=== PATIENT | female | born 1990 | race Caucasian/White ===

== ENCOUNTER → 2017-10-04 17:45 | Observation (INO) ==
[~2017-10-04 17:45] MED LIST: BETAMETHASONE 30 MG/5 ML INJECTION IM ONE
== END | disposition home or self-care (01) ==
LOC: MC
PROVIDERS: ADMIT Obstetrics & Gynecology; ATTEND Obstetrics & Gynecology

== ENCOUNTER 2017-10-18 16:51 | Inpatient (IN) ==
[2017-10-18] MEDS ORDERED: CALCIUM CARBONATE Chewable 500mg TABLET PO PRN (19:29)
[2017-10-18] MEDS ORDERED: LR 1,000 ML IV PRN ×2 (19:29→20:27)
[2017-10-18] MEDS ORDERED: CARBOPROST 250 MCG/ML INJECTION IM PRN (19:29)
[2017-10-18] MEDS ORDERED: MAG-AL + SIM ORAL LIQUID 30ml PO PRN (19:29)
[2017-10-18] MEDS ORDERED: METHYLERGONOVINE 0.2 MG/ML INJECTION IM PRN (19:29)
[2017-10-18] MEDS ORDERED: SALINE FLUSH 10ml SYRINGE IV PRN (19:31)
[2017-10-18] MEDS ORDERED: ZOLPIDEM 5 MG TABLET PO PRN (19:31)
[2017-10-18 20:53] VITALS: BMI 38.0
[2017-10-18] MEDS ORDERED: D5LR 1,000 ML IV PRN (20:58)
[2017-10-18] MEDS: ACETAMINOPHEN 500 MG TABLET PO PRN (21:29)
[2017-10-18] MEDS ORDERED: Oxycodone *IR* 5 MG TABLET PO PRN (21:41)
[2017-10-19] MEDS: ACETAMINOPHEN 500 MG TABLET PO PRN (01:32)
[2017-10-19] MEDS ORDERED: OXYTOCIN DRIP 30 UNIT/500 ML ML IV PRN ×2 (05:00)
[2017-10-19] MEDS ORDERED: D5LR 1,000 ML IV PRN ×2 (05:00)
[2017-10-19] MEDS: LR 1,000 ML IV PRN ×2 (05:45→10:40)
--- NOTE | 2017-10-19 07:57 | Anesthesia Preoperative Report ---
Anesthesia Epidural/Spinal Rec - Date and Time Date: 10/19/17 Preoperative Diagnosis: Labor Procedure: Labor Epidural Plan: Epidural - Vital Signs Vital Signs: Temperature 98.5 F 10/18/17 19:36 Pulse Rate 121 H 10/18/17 19:36 Respiratory Rate 18 10/18/17 19:36 Blood Pressure 134/83 10/18/17 19:36 Pulse Oximetry 98 10/18/17 19:36 /Para: P:1 - Medictaions & Allergies Inpatient Medications: Current Medications Acetaminophen (Tylenol) 500 - 1,000 mg PO Q4H PRN PRN Reason: Pain Last Admin: 10/19/17 01:32 Dose: 1,000 mg Al Hydroxide/Mg Hydroxide (Maalox Plus) 30 ml PO Q3H PRN PRN Reason: Indigestion Calcium Carbonate (Tums) 500 - 1,000 mg PO Q2H PRN PRN Reason: Indigestion Carboprost Tromethamine (Hemabate) 250 mcg IM O PRN PRN Reason: .Downtime Dextrose/Lactated Ringer's (Dextrose 5%-Lactated Ringers) 1,000 mls @ 125 mls/ hr IV .Q8H PRN PRN Reason: Labor Oxytocin (Pitocin Drip) 30 unit in 500 mls @ 2 mls/hr IV .Q24H PRN; Protocol PRN Reason: Induction/Augmentation Lactated Ringer's (Lactated Ringers) 1,000 mls @ 999 mls/hr IV .Q1H1M PRN Methylergonovine Maleate (Methergine) 0.2 mg IM O PRN Misoprostol (Cytotec) 800 mcg [place] ONCE PRN Oxycodone HCl (Roxicodone *Ir*) 5 mg PO Q4H PRN PRN Reason: Pain Sodium Chloride (Iv Flush) 10 - 80 ml IV PRN PRN PRN Reason: Flushing Zolpidem Tartrate (Ambien) 5 mg PO O PRN PRN Reason: Insomnia Allergies/Adverse Reactions: Allergies Allergy/AdvReac Type Severity Reaction Status Date / Time codeine Allergy Severe Agitated Verified 10/18/17 21:55 Sulfa (Sulfonamide Allergy Mild RASH Verified 10/18/17 21:55 Antibiotics) - Home Medications Home Medications: Home Medications Medication Instructions Recorded Confirmed Type Colace 1 cap PO BID PRN 10/18/17 10/18/17 History Vitamin Tab 1 tab PO DAILY 10/18/17 10/18/17 History Ranitidine 1 tab PO UNK PRN 10/18/17 10/18/17 History Potassium Chloride [Potassium 10/19/17 History Chloride] - Medical History Respiratory: Reports: Asthma (not currently using inhaler) Cardiovascular: Reports: Other ( induced hypertension) Neuro/Musculoskeletal: Reports: Depression (medication in past. not presently) Other History: Reports: Now (35w5d) - Surgical History HEENT Surgeries: Reports: Oral Surgery (wisdom teeth 18 yrs old) Surgery/Treatment: REPORT: Other ("Urethral stretching" 16 or 17 years old) Reproductive Surgery/Treatment: Reports: Cervical Procedure (biobsy) Anesthesia Reactions: None Hx Family Anesthesia Reaction: No History of Motion Sickness: No - Social History Smoking Status: Never smoker Second Hand Exposure: No Substance Use Type: does not use Alcohol Intake Frequency: does not drink - Pertinent Findings Lab Data: CBC and BMP 10/18/17 19:51 10/18/17 19:49 BMP 10/18/17 19:49 Sodium 141 Potassium 3.9 Chloride 109 H Carbon Dioxide 19 L BUN 16.0 Creatinine 0.7 Glucose 129 H Calcium 10.8 H Liver Function 10/18/17 Range/Units 19:49 Total Bilirubin 0.20 (0.20-1.30) MG/DL AST 20 (14-36) U/L ALT 14 (1-35) U/L Alkaline Phosphatase 120 (38-126) U/L Albumin 3.7 (3.5-5.0) g/dL EKG Rhythm: Normal Sinus Rhythm - Physical Exam Respiratory Exam: lungs clear Cardiovascular Exam: regular rate and rhythm - Airway Assessment Mallampati Score: II TMD: 2 Fingerbreadths Neck Extension: fair Overall Assessment: no airway concerns - ASA ASA Score: 2 - Discussion Discussion: Discussed risks/options/alternatives of anesthesia and questions answered. Patient consents. Nursing pain assessment noted. Attestation Statement: Prior to the delivery of any anesthetic medication, I examined the patient, developed the plan, obtained the patient's consent and discussed the risk and benefits of the procedure with the patient/guardian.
--- NOTE | 2017-10-19 08:15 | OB/GYN Progress Note ---
- Pain Control Pain control: Tolerating well - Pelvic Exam Dilation (cm): 4 Effacement (%): 80 station: -3 Amniotic membrane status: Intact - Contractions Monitor mode: External Contraction pattern: Irregular Contraction intensity: Moderate - Status status: Category l - Assessment and Plan Pitocin rate (mU/min): 14 Assessment: induction ongoing Comments: AROM clear fluid tolerated by Mother and Fetus. Continue current management.
[2017-10-19] MEDS ORDERED: DiphenhydrAMINE 50 MG/ML INJECTION IVP PRN (10:07)
[2017-10-19] MEDS ORDERED: NALOXONE 0.4 MG/ML INJECTION IVP PRN (10:07)
[2017-10-19] MEDS ORDERED: ONDANSETRON 4 MG/2 ML INJECTION IVP PRN (10:07)
[2017-10-19] MEDS ORDERED: ROPIVACAINE 1% 10MG/ML INJ 200 MG, SUFentanil 50 MCG in NS 100 ML EPI PRN (10:07)
--- NOTE | 2017-10-19 10:33 | OB/GYN Progress Note ---
- Pain Control Pain control: Epidural - Pelvic Exam Dilation (cm): 4 Effacement (%): 90 station: -3 Amniotic membrane status: Ruptured - Contractions Monitor mode: External Contraction pattern: Regular Contraction intensity: Moderate - Status status: Category ll Comments: Late Decelerations Mod Briseyda - Assessment and Plan Assessment: induction ongoing Comments: IUPC placed, Pitocin turned off will give Fetus a chance to recover and then possible restart Pitocin. If continues will likely require PLTCS.
[2017-10-19] MEDS ORDERED: CITRIC ACID/SODIUM CITRATE 30ml PO ONE (11:34)
[2017-10-19] MEDS ORDERED: CEFAZOLIN PREMIX (MC ONLY) 2 GM/50 ML BAG IV ONE (11:34)
[2017-10-19] MEDS ORDERED: AZITHROMYCIN IV 500 MG in NS 250ml 250 ML IV ONE (11:34)
[2017-10-19] MEDS ORDERED: FAMOTIDINE PB 20 MG/50 ML BAG IV ONE (11:34)
--- NOTE | 2017-10-19 11:34 | OB/GYN Progress Note ---
- Pain Control Pain control: Epidural - Pelvic Exam Dilation (cm): 4 Effacement (%): 90 station: -3 Amniotic membrane status: Ruptured - Contractions Monitor mode: Internal Contraction pattern: Irregular Contraction intensity: Moderate - Status status: Category ll - Assessment and Plan Comments: FHT Cat @ has not resolved unable to restart Pitocin. Discussed Indication for PLTCS, Discussed R/B/A to procedure questions elicited and answered.
[2017-10-19] MEDS ORDERED: SALINE FLUSH 10ml SYRINGE ONE (11:39)
[2017-10-19] MEDS ORDERED: LIDOCAINE 2%/EPI 1:200,000 20ml SDV PF ONE (11:39)
[2017-10-19] MEDS: OXYTOCIN BOLUS BAG 30 UNIT/500 ML ML IV SCH ×2 (12:04→12:23)
[2017-10-19] MEDS ORDERED: MORPHINE SULFATE PF 5mg/10ml INJ (Duramorph) ONE (12:36)
[2017-10-19] MEDS ORDERED: SIMETHICONE 80 MG CHEWABLE TABLET PO PRN (12:48)
[2017-10-19] MEDS ORDERED: CALCIUM CARBONATE Chewable 500mg TABLET PO PRN (12:48)
[2017-10-19] MEDS ORDERED: ACETAMINOPHEN 500 MG TABLET PO PRN (12:48)
[2017-10-19] MEDS ORDERED: DiphenhydrAMINE 25 MG CAPSULE PO PRN (12:48)
[2017-10-19] MEDS ORDERED: Oxycodone/Acetaminophen 5/325 1 TAB PO PRN (12:48)
[2017-10-19] MEDS ORDERED: HYDROCORTISONE 2.5% CREAM 30gm RECTALLY PRN (12:48)
--- NOTE | 2017-10-19 12:53 | Operative Note ---
Operative Note - Date of Operation Date of Operation: 10/19/17 - General : 1 Para: 0 Expected Date of Delivery: 11/06/17 Estimated or Known Gestational Age (weeks): 37 Estimated or Known Gestational Age (days): 3 - Preoperative Diagnosis Nonreassuring FHT, Gestational Hypertension - Postoperative Diagnosis nonreassuring FHT, Gestational Hypertension - Procedure Primary - Surgeon Surgeon: Lloyd Bhatia DO - Fountain Dispenser OB Fountain Dispenser: Gorge Plata MD - Anesthesia Anesthesia Provider: Kenneth Milan CRNA - Complications Complications: None - Estimated Blood Loss Estimated Blood Loss:: 800 - Findings Findings: viable female - APGARS : 799 - Veblen Weight Veblen Weight (grams): 2928 - Veblen Name Veblen Name: Indra
[2017-10-19] MEDS ORDERED: OXYTOCIN DRIP 30 UNIT/500 ML ML IV SCH (13:00)
[2017-10-19] MEDS ORDERED: D5LR 1,000 ML IV SCH ×2 (13:00→19:00)
[2017-10-19] MEDS ORDERED: NALOXONE 2 MG/2 ML INJECTION PFS IVP PRN (14:36)
[2017-10-19] MEDS: SIMETHICONE 80 MG CHEWABLE TABLET PO SCH ×2 (14:37→21:26)
[2017-10-19] MEDS: IBUPROFEN 800 MG TABLET PO PRN (14:38)
--- NOTE | 2017-10-19 15:55 | Anesthesia Postoperative Note ---
- Date and Time Date: 10/19/17 Time: 15:55 - Status Patient Participated in Evaluation: Patient Participated in Person Vital Signs: Temperature 98.5 F 10/18/17 19:36 Pulse Rate 121 H 10/18/17 19:36 Respiratory Rate 18 10/18/17 19:36 Blood Pressure 134/83 10/18/17 19:36 Pulse Oximetry 98 10/19/17 11:08 Respiratory Function: Airway Patent Cardiovascular Function: Regular Pulse EKG: Sinus Rhythm Mental Status: Alert and Oriented Pain Intensity: 0 Hydration: Taking PO Fluids, Nausea Complications During Recover: None Apparent - Follow-Up Instructions Instructions: Per Surgeon
[2017-10-19] MEDS: ONDANSETRON ODT 4 MG TABLET PO PRN ×2 (17:07→21:28)
[2017-10-19] MEDS ORDERED: HYDROMORPHONE 2 MG/ML INJECTION IVP PRN (18:40)
[2017-10-20] MEDS: IBUPROFEN 800 MG TABLET PO PRN ×3 (00:20→19:06)
[2017-10-20] MEDS: SIMETHICONE 80 MG CHEWABLE TABLET PO SCH ×3 (02:15→20:27)
--- NOTE | 2017-10-20 08:05 | OB/GYN Progress Note ---
OB-PP Progress Note - General PPD1 POD:: POD1 Maternal Group B Strep: Negative Maternal blood type: B+ Maternal Rubella Status: Immune - Subjective Date: 10/20/17 Lochia: Minimal Pain: controlled Voiding: costa still in place Nausea or Vomiting Present: No - Objective Vital Signs: Last Vital Signs Temp 97.7 F 10/20/17 04:00 Pulse 100 10/20/17 04:00 Resp 18 10/20/17 04:00 BP 102/66 10/20/17 04:00 Pulse Ox 98 10/20/17 04:00 Urine Output: good General: alert and oriented Abdomen: fundus firm, non-tender Incision: dry, dressed Extremities: non-tender Edema: none Laboratory: Laboratory Results - last 24 hr 10/19/17 10/20/17 17:16 05:55 WBC 18.7 H D 12.6 H RBC 2.61 L 2.34 L Hgb 8.0 L D 7.0 L D Hct 24.2 L D 22.1 L MCV 92.7 94.4 MCH 30.7 29.9 MCHC 33.1 31.7 RDW Std Deviation 47.6 48.3 Plt Count 252 212 MPV 9.1 L 8.8 L Immature Gran % (Auto) Not performed Neut % (Auto) Not performed Lymph % (Auto) Not performed Gove % (Auto) Not performed Eos % (Auto) Not performed Baso % (Auto) Not performed Neut # (Auto) Not performed Lymph # (Auto) Not performed Gove # (Auto) Not performed Eos # (Auto) Not performed Baso # (Auto) Not performed Abs Immat Gran (auto) Not performed Neutrophils % (Manual) 92.0 H Band Neutrophils % 1.0 Lymphocytes % (Manual) 4.0 L Monocytes % (Manual) 3.0 Neutrophils # (Manual) 17.2 H Band Neutrophils # 0.2 Lymphocytes # (Manual) 0.7 L Monocytes # (Manual) 0.6 RBC Morph Comment Normal - Assessment Assessment: SP, Primary C/S, Anemia - Plan Plan: routine care, iron
--- NOTE | 2017-10-20 08:36 | Operative Note ---
DATE OF SERVICE 10/19/2017 PREOPERATIVE DIAGNOSES 1. 37 weeks and 3 days gestational age. 2. Nonreassuring heart tones. 3. Preeclampsia without severe features. POSTOPERATIVE DIAGNOSES 1. 37 weeks and 3 days gestational age. 2. Nonreassuring heart tones. 3. Preeclampsia without severe features. 4. Delivered. PROCEDURE Primary low transverse section via Pfannenstiel incision. SURGEON Dr. Lloyd Bhatia DO OPERATOR AUTOMATED PROCESS Dr. Gorge Plata MD CHILD NUTRITION MANAGER Kenneth Milan CRNA COMPLICATIONS None. ESTIMATED BLOOD LOSS 800 mL FINDINGS A viable female infant. Apgars were 7/9. Weight was 2928 g. Name was Indra. FINDINGS Normal-appearing uterus, tubes and ovaries. INDICATIONS FOR PROCEDURE This is a 27-year-old G1, P0 who presented to [facility] for induction of labor at 37 weeks gestational age secondary to preeclampsia without severe features. She underwent a Simon bulb for cervical ripening and then a Pitocin induction. She made it to approximately 4.5 cm and 90% effaced and then had recurrent late decelerations with a category II strip and did not allow us to restart Pitocin and continue with the induction. We discussed indications for a primary low transverse section with the patient at the time including risks, benefits and alternatives. The patient decided to proceed with surgical delivery. DESCRIPTION OF PROCEDURE The patient was taken to the operating room where epidural anesthesia was found to be adequate. She was then prepped and draped in the dorsal supine position with a leftward tilt. A Simon catheter was placed. At this time a Pfannenstiel incision was made in the skin and carried through the underlying layers to the fascia. The fascia was then incised in the midline and the fascial incision was extended laterally with the Kennedy scissors. Superior aspect of the fascial incision was grasped with the Carli clamps, elevated and then the rectus muscle dissected off with the Kennedy scissors. At this time attention was turned to the inferior aspect of the fascial incision which was elevated and the rectus muscles dissected off with the Kennedy scissors. The rectus muscles were in the midline bluntly. Then the peritoneum was entered sharply with the Metzenbaum scissors. The peritoneal incision was then extended superiorly and inferiorly with good visualization of the bladder. The bladder blade was inserted and the vesicouterine peritoneum was identified and entered sharply with the Metzenbaum scissors. This incision was then extended laterally and the bladder flap was created digitally. At this time a uterine incision was made in a transverse fashion. The uterine incision was extended laterally with cephalad-caudad traction. An attempt to deliver the infant's head was made and after approximately a minute and a half of not being able to deliver the 's head a vacuum was applied and brought to 50 mmHg on suction and the infant's head delivered with one pull. The suction was removed and the remainder of the infant was delivered. The cord was clamped and cut x 2 and the was handed to the him clerk that was waiting. At this time the placenta was removed manually. The uterus was exteriorized and cleared of all clot and debris and the uterine incision was repaired with 1-0 Monocryl in a running locked fashion. A second layer of the same suture was used in an imbricating fashion. Excellent hemostasis was noted and the uterus was returned to the abdomen. The peritoneal incision was then repaired with 3-0 Monocryl in a running fashion and the fascia was repaired with 0 Vicryl in a running fashion. Subcutaneous layer was closed with 2-0 plain gut and the skin was closed with 4-0 Monocryl and the Prevena wound vac was applied. The patient tolerated the procedure well. Sponge, lap and needle counts were correct x 2 and patient was taken to recovery room in stable condition. TRIPP
[2017-10-20] MEDS: DOCUSATE CALCIUM 240 MG CAPSULE PO SCH (14:51)
[2017-10-20] MEDS: IRON POLYSACCHARIDE COMPLEX 150 MG CAPSULE PO SCH (14:51)
[2017-10-21] MEDS: SIMETHICONE 80 MG CHEWABLE TABLET PO SCH ×2 (01:02→09:17)
[2017-10-21] MEDS: IBUPROFEN 800 MG TABLET PO PRN (02:03)
[2017-10-21] MEDS: DOCUSATE CALCIUM 240 MG CAPSULE PO SCH (09:17)
[2017-10-21] MEDS: IRON POLYSACCHARIDE COMPLEX 150 MG CAPSULE PO SCH (09:18)
[2017-10-21 09:35] VITALS: RESP 18; O2SAT 98
[2017-10-21 12:07] VITALS: BP 121/76; PULSE 107; TEMP 98.7
--- NOTE | 2017-10-21 12:19 | OB/GYN Progress Note ---
OB-PP Progress Note - General PPD2 POD:: POD2 Maternal Group B Strep: Negative Maternal blood type: B+ Maternal Rubella Status: Immune - Subjective Date: 10/21/17 Lochia: Minimal Pain: controlled Voiding: voiding Nausea or Vomiting Present: No - Objective Vital Signs: Last Vital Signs Temp 98.7 F 10/21/17 12:00 Pulse 107 H 10/21/17 12:00 Resp 18 10/21/17 12:00 BP 121/76 10/21/17 12:00 Pulse Ox 98 10/21/17 12:00 Urine Output: good General: alert and oriented Cardiovascular: regular rate,rhythm Respiratory: non-labored Abdomen: fundus firm Incision: normal, clean, dry, intact Extremities: non-tender Edema: none - Assessment Assessment: SP, Primary C/S - Plan Plan: routine care, discharge home
== END 2017-10-21 14:10 | disposition home or self-care (01) | DRG 766 ==
LOC: MC 18:54
PROVIDERS: ADMIT Obstetrics & Gynecology; ATTEND Obstetrics & Gynecology

== ENCOUNTER 2018-01-08 19:03 | Observation (INO) ==
--- OUTSIDE RECORDS SUMMARY | 2018-01-08 19:12 | External Medical Summary | Continuity of Care Document ---
:1990 Author Organization [facility] Address [address] [place], [place] [id number] Phone Care Team Providers Name Role Phone Saundra Shital Unavailable Unavailable Allergies, Adverse Reactions, Alerts Substance Reaction Severity Status Sulfa (Sulfonamide Antibiotics) Unknown Active codeine Unknown Active Medications Medication Instructions Dosage Effective Dates Status Comments (start - stop) escitalopram 10 mg take 1 tablet by 10 MG - Active tablet oral route every day Nexplanon 68 mg As Prescribed - Active subdermal implant sertraline 25 mg take 1 tablet by 25 MG - No Longer tablet oral route every Active day Problems Condition Effective Dates (start - stop) Clinical Status Puerperal psychosis Puerperal psychosis Encounter for surveillance of other contraceptives Follow-Up, Routine Iron deficiency anemia, unspecified Follow-Up, Routine Anemia, unspecified Anemia, unspecified Follow-Up, Routine - Obesity, unspecified - Obesity, unspecified - Irregular Menses Female infertility associated with anovulation Irregular Menses - Female infertility, unspecified Female infertility, unspecified Female infertility, unspecified - Suprvsn of preg w history of - infertility, second trimester Suprvsn of preg w history of - infertility, second trimester Velamentous insertion of umbilical - cord, unsp trimester Suprvsn of preg w history of - infertility, second trimester Suprvsn of preg w history of - infertility, second trimester Abnormal finding of blood chemistry, unspecified Asthma Active Depression Active Active Procedures Procedure Date Office/outpatient visit,daniela mullen Results Test Name Date and Time Measure Units Reference Range Abnormal Flag Comments Unknown Advance Directives Directive Yes / No Effective Date File Name Unknown Encounters Encounter Practice Location Reason(s) Diagnoses Date Provider Care Team Description For Visit Members Office/outpa Bhavani Mejia depression Puerperal Dec- Sobbing Referring tient In Womens (chief psychosis [place]. Provider: visit,est, Juliocesar ENG, complaint) 8 700 Awa mod PO Box Medical [address] [address], 152, Center [address] [employer] [place], Suite Center [id number], 120, Lopez 120, [place] Roberto Mejia, tel: [place], [place], [address], [id number]. [place]. tel: tel: [phone] Bhavani Mejia Puerperal Nov- Sobbing Referring In Womens psychosisEncount [place]. Provider: Juliocesar ENG, er for 8 700 Awa PO Box surveillance of Medical [place] T, 1521, other Center 700 [facility], stpartum Suite Center [id number], Follow-Up, 120, Lopez 120, [place] Routine Roberto Mejia, tel: [place], [place], [address], [id number]. [place]. tel: tel: [phone] Bhavani Mejia Iron deficiency Oct- Sobbing Referring In Womens anemia, [place]. Provider: Tyrese Freed 8 700 Awa PO Box artum Follow-Up, Medical [place] T, 1521, Routine Center 700 [employer] [place], Suite Center [id number], 120, [place] 120, [place] Roberto Mejia, tel: [place], [place], [address], [id number]. [place]. tel: tel: [phone] Bhavani Mejia Anemia, Dakota-0 Sobbing Referring In Womens unspecifiedAnemi [place]. Provider: luis Freed, 8 700 Awa PO Box unspecifiedPostp Medical [place] T, 1521, artum Follow-Up, Center [address] [place] [address], Suite Center [id number], 120, Lopez 120, [place] Roberto Mejia, tel: [place], [address], [id number]. [place]. tel: tel: [phone] Bhavani Mejia Obesity, Apr-2 Sobbing Referring In Womens unspecified 3- Lloyd. Provider: Juliocesar ENG, 8 700 [facility], 152, Center [address] [place] [address], Suite Center [id number], 120, Lopez 120, [place] Roberto Mejia, tel: [place], [address], [id number]. [place]. tel: tel: [phone] Bhavani Mejia Obesity, Mar-2 Sobbing Referring In Womens unspecified 6- Lloyd. Provider: Juliocesar ENG, 8 700 [facility], 152, [address], Suite Center [id number], 120, Lopez 120, [place] Roberto Mejia, tel: [place], [address], [id number]. [place]. tel: tel: [phone] Bhavani Mejia Suprvsn of preg Mar-0 Sobbing Referring In Womens w history of - Lloyd. Provider: Juliocesar ENG, infertility, 8 700 Awa [facility] second trimester [facility] Cutler T, 152, Center [address] [place] [address], Suite Center [id number], 120, Lopez 120, [place] Roberto Mejia, tel: [place], [address], [id number]. [place]. tel: tel: [phone] Bhavani Mejia Suprvsn of preg Feb-0 Sobbing Referring In Womens w history of - Lloyd. Provider: Juliocesar ENG, infertility, 8 700 [facility] second Medical Cutler T, 1522, trimesterVelamen Center [address] [place] [address], tous insertion [place], of umbilical Suite Center [id number], cord, unsp 120, Lopez 120, [place] trimester Roberto Mejia, tel: [place], [address], [id number]. [place]. tel: tel: [phone] Bhavani Mejia Suprvsn of preg Jun-0 Sobbing Referring In Womens Ultrasound w history of Lloyd. Provider: Health VELASQUEZ, infertility, 8 700 Awa PO Box second trimester Medical [place]ler T, 1522, Center 700 [facility], Suite Center [id number], 120, Lopez 120, [place] Roberto Mejia, tel: [place], [address], [id number]. [place]. tel: tel: [phone] Bhavani Mejia Suprvsn of preg May-0 Sobbing Referring In Womens w history of Lloyd. Provider: Juliocesar ENG, infertility, 8 700 Awa PO Box second trimester Medical [address]ler T, 1522, Center [address] [place] [address], Suite Center [id number], 120, Lopez 120, [place] Roberto Mejia, tel: [place], [address], [id number]. [place]. tel: tel: [phone] Bhavani Mejia Nov-0 Sobbing Referring In Womens - Lloyd. Provider: Juliocesar ENG, 7 700 Awa PO Box Medical [place] T, 1522, Center [address] [place] [address], Suite Center [id number], 120, Lopez 120, [place] Roberto Mejia, tel: [place], [address], [id number]. [place]. tel: tel: [phone] Bhavani Mejia Irregular Menses [place]-2 Cutler Referring In Womens - Awa. Provider: Juliocesar ENG, 7 700 Awa PO Box Medical Cut[place] T, 1522, Center [address] Dr Kalpesh, [facility] Medical [place], 120, Center [id number], Mejia, Lopez 120, [place] Roberto COLEMAN, tel:[phone] [place], , [place]. [id number]. tel: tel: [phone] Associates Roberto Irregular May-2 Cutler Referring In Womens MensesFemale 5-201 Awa. Provider: Health VELASQUEZ, infertility 7 700 Awa PO Box associated with Medical [place] T, 1522, anovulation Center [address], [facility] [place], 120, Center [id number], [facility] 120, Roberto COLEMAN, tel:+ [phone] [place], , [place]. [id number]. tel: tel: [phone] Associates Roberto Female May-2 Cutler Referring In Womens infertility, 2-201 Awa. Provider: Juliocesar ENG, unspecified 7 700 Awa PO Box Medical [place] T, 1522, Center [address], [facility] [place], 120, [place] [id number], [facility] 120, Roberto COLEMAN, tel:[phone] [place], , [place]. [id number]. tel: tel: [phone] Associates Roberto Abnormal finding May-0 Cutler In Womens of blood 8-201 Awa. Health VELASQUEZ, chemistry, 7 700 PO Box unspecified Medical 152, Center Dr Kalpesh, [facility] [place], 120, [id number], Mejia, JARED, tel: [phone] , [place]. tel: [phone] Associates Roberto Female May-0 Cutler Referring In Womens infertility, 2-201 Awa. Provider: Juliocesar ENG, unspecifiedFemal 7 700 Awa PO Box e infertility, Medical [place] T, 1522, unspecified Center [address], [facility] [place], 120, [place] [id number], [facility] 120, Roberto COLEMAN, tel:[phone] [place], , [place]. [id number]. tel: tel:[phone] Family History Family Member Diagnosis Age At Onset Maternal Grandfather Cardiovascular Disease Maternal Grandfather Diabetes Maternal Grandmother Diabetes Maternal Grandmother Hypertension Father Kidney Disease Maternal Grandfather Lung Disease Immunizations Vaccine Date Status Comments Tdap completed Source: New Immunization Record Influenza, injectable, completed Source: New Immunization Record quadrivalent, preservative free, 3 yrs or older Payers Payer name Insurance type Covered libertarian ID Authorization(s) [facility] JARED [id number] [facility] JARED [id number] [facility] JARED [id number] Social History Type Description Quantity Date Captured Alcohol Use Details No Caffeine Use Details Tobacco Use Status Never smoked tobacco Smoking Status Never smoker Vital Signs Date / Height Weight BMI Pulse Blood Temperature Respiratory Body Head BMI Time: Rate Pressure Rate Surface Circumference percentile Area 186.10 86 128/87 2018 lbs /min mm[Hg] 10:50 AM Chief Complaint And Reason For Visit Most recent encounter only, dated '01/04/2018 11:00'. depression (chief complaint). Description: Problem started gradually over the past 4 Months. Statessymptoms are mild. The problem is stable. Context: Delivery. Problem is aggravated by lack of sleep and stress. She is also experiencing anxiety, decreased libido, fatigue and insomnia. Patient denies diaphoresis, dizziness, dyspnea, feeling of impending doom, low self esteem, manic episodes, social phobia, suicidal ideation and weight loss. Increased Zoloft dose not helping desires to change medications. Has not been to counseling. Reports decreased sex drive. Reason For Referral Reason For Referral Unknown Plan Of Care Date Type Action Status Goal Lifestyle education regarding completed diet Goal Lifestyle education regarding completed diet Goal Lifestyle education regarding completed diet Goal Lifestyle education regarding completed diet Goal Lifestyle education regarding completed diet Future Order: Radiology Order OB Detailed Complete Ultrasound Ordered ([id number]) Date Type Problem Goal Intervention Status Start Date Unknown. History Of Present Illness Encounter Date Complaint History Of Present Illness depression Problem started gradually over the past 4 Months. States symptoms are mild. The problem is stable. Context: Delivery. Problem is aggravated by lack of sleep and stress. She is also experiencing anxiety, decreased libido, fatigue and insomnia. Patient denies diaphoresis, dizziness, dyspnea, feeling of impending doom, low self esteem, manic episodes, social phobia, suicidal ideation and weight loss. Increased Zoloft dose not helping desires to change medications. Has not been to counseling. Reports decreased sex drive. Functional Status Encounter Date Functional Assessment Cognitive Assessment Unknown Medications Administered Medication Instructions Dosage Effective Dates (start - stop) Status Comments Drug Treatment Unknown Instructions Date Instruction Additional Information Giving encouragement to exercise Related to Body mass index 32.0-32.9 Lifestyle education regarding diet Related to Body mass index 32.0-32.9 Giving encouragement to exercise Related to Body mass index 32.0-32.9 Lifestyle education regarding diet Related to Body mass index 32.0-32.9 Giving encouragement to exercise Related to Body mass index 32.0-32.9 Lifestyle education regarding diet Related to Body mass index 32.0-32.9 Lifestyle education regarding diet Related to Body mass index 36.0-36.9 Giving encouragement to exercise Related to Body mass index 36.0-36.9 toxoplasmosis precautions (cats / raw meat) sexual activity HIV and other routine tests risk factors identified by history anticipated course of care nutrition and weight gain counseling, special diet exercise indications for ultrasound influenza vaccine environmental / work hazards travel tobacco (ask, advise, assess, assist and arrange) alcohol illicit / recreational drugs use of any medications (including supplements, vitamins, herbs, OTC drugs) smoking counseling domestic violence seat belt use childbirth classes / hospital facilities hospital registration genetic testing new ob handbook risks Giving encouragement to exercise Related to Body mass index 34.0-34.9 Lifestyle education regarding diet Related to Body mass index 34.0-34.9
--- OUTSIDE RECORDS SUMMARY | 2018-01-08 19:12 | External Medical Summary | Continuity of Care Document ---
:1990 Author Organization [facility] Address [address] [place], [place] [address] Phone Care Team Providers Name Role Phone Saundra DO Shital Unavailable Unavailable Allergies, Adverse Reactions, Alerts Substance Reaction Severity Status Sulfa (Sulfonamide Antibiotics) Unknown Active codeine Unknown Active Medications Medication Instructions Dosage Effective Dates Status Comments (start - stop) sertraline 25 mg take 1 tablet by oral 25 MG - Active tablet route every day Nexplanon 68 mg As Prescribed - Active subdermal implant Problems Condition Effective Dates (start - stop) Clinical Status Puerperal psychosis Encounter for surveillance of other [...] Active Depression Active Active Procedures Procedure Date Insert n-biodgrad drug del implant Nexplanon- Etonogestrel Implant Visit No-Charge Results Test Name Date and Time Measure Units Reference Range Abnormal Flag Comments Unknown Advance Directives Directive Yes / No Effective Date File Name Unknown Encounters Encounter Practice Location Reason(s) Diagnoses Date Provider Care Team Description For Visit Members Bhavani Mejia Puerperal Sobbing Referring In Womens examination psychosisEncoun [place]. Provider: Juliocesar ENG, (chief ter for 8 700 Awa PO Box complaint) surveillance of Medical [address]ler T, 152, other Center 700 [facility], ostpartum Suite Center [id number], Follow-Up, 120, Lopez 120, [place] Routine Roberto Mejia, tel:+ [place], [place], [address], [id number]. [place]. tel: tel: [phone] Bhavani Mejia Iron deficiency Sobbing Referring In Womens anemia, [place]. Provider: Juliocesar ENG unspeczuleymaPost 8 700 Awa PO Box Medical [place] T, 152, Follow-Up, Center 700 [facility], Suite Center [id number], 120, Lopez 120, [place] Roberto Mejia, tel: [place], [place], [address], [id number]. [place]. tel: tel: [phone] Bhavani Mejia Anemia, [place]-0 Sobbing Referring In Womens unspecifiedAnem [place]. Provider: aureliano Freed, 8 700 Awa PO Box unspecifiedPost Medical [place] T, 152, Center 700 [place], Follow-Up, [facility], Routine Suite Center [id number], 120, Lopez 120, [place] Roberto Mejia, tel: [place], [place], [address], [id number]. [place]. tel: tel: [phone] Bhavani Mejia Obesity, Aug-2 Sobbing Referring In Womens unspecified 3 [place]. Provider: Juliocesar ENG, 8 700 Awa PO Box Medical [address] T, 152, Center 700 [facility], Suite Center [id number], 120, Lopez 120, [place] Roberto Mejia, tel: [place], [address], [id number]. [place]. tel: tel: [phone] Bhavani Mejia Obesity, Mar-2 Sobbing Referring In Womens unspecified Lloyd. Provider: Juliocesar CT, 8 700 [facility] T, 1522, Center 700 [facility], Suite Center , 120, Lopez 120, [place] Roberto Mejia, tel: [place], [address], [id number]. [place]. tel: tel: [phone] Bhavani Mejia Suprvsn of preg Mar-0 Sobbing Referring In Womens w history of Lloyd. Provider: Juliocesar ENG, infertility, 8 700 [facility] T, 1522, trimester Center [address] [place] [address], Suite Center [id number], 120, Lopez 120, [place] Roberto Mejia, tel: [place], [address], [id number]. [place]. tel: tel: [phone] Bhavani Mejia Suprvsn of preg Feb-0 Sobbing Referring In Womens w history of Lloyd. Provider: Juliocesar ENG, infertility, 8 700 [facility] T, 1522, trimesterVelame Center 700 [facility], of umbilical Suite Center [id number], cord, unsp 120, Lopez 120, [place] trimester Roberto Mejia, tel: [place], [address], [id number]. [place]. tel: tel: [phone] Bhavani Mejia Suprvsn of preg Feb-0 Sobbing Referring In Womens Ultrasound w history of Lloyd. Provider: Juliocesar ENG, infertility, 8 700 [facility] T, 1522, trimester Center 700 [facility], Suite Center [id number], 120, Lopez 120, [place] Roberto Mejia, tel: [place], [address], [id number]. [place]. tel: tel: [phone] Associates Roberto Suprvsn of preg [place]-0 Sobbing Referring In Womens w history of 4-201 Lloyd. Provider: Juliocesar ENG, infertility, 8 700 Awa PO Box second Medical Cutler T, 1522, trimester Center [address] [place] [address], Suite Center [id number], 120, Lopez 120, [place] Roberto Mejia, tel: [place], [address], [id number]. [place]. tel: tel: [phone] Associates Roberto Nov-0 Sobbing Referring In Womens 9-201 Lloyd. Provider: Juliocesar ENG, 7 700 Awa PO Box Medical [place] T, 1522, Center [address] [place] [address], Suite Center [id number], 120, Lopez 120, [place] Roberto Mejia, tel: [place], [address], [id number]. [place]. tel: tel: [phone] Associates Roberto Irregular [place]-2 Cutler Referring In Womens Menses 1-201 Awa. Provider: Juliocesar ENG, 7 700 Awa PO Box Medical [place] T, 1522, Center [address], [facility], 120, Center [id number], Roberto, [facility] 120, [place] Roberto COLEMAN, tel:[phone] [place], , [place]. [id number]. tel: tel: [phone] Bhavani Mejia Irregular May-2 Cutler Referring In Womens MensesFemale 5-201 Awa. Provider: Juliocesar ENG, infertility 7 700 Awa PO Box associated with Medical [place]ler T, 152, anovulation Center [facility] Dr Kalpesh, [facility], 120, Center [id number], Roberto, [facility] 120, [place] Roberto COLEMAN, tel:[phone] [place], , [place]. [id number]. tel: tel: [phone] Associates Roberto Female May-2 Cutler Referring In Womens infertility, 2-201 Awa. Provider: Juliocesar ENG, unspecified 7 700 Awa PO Box Medical [place] T, 1522, Center [address], [facility], 120, Center [id number], [facility] 120, Roberto COLEMAN, tel:+[phone] [place], , [place]. [id number]. tel: tel:[phone] Associates Roberto Abnormal May-0 Cutler In Womens finding of 8-201 Awa. Health VELASQUEZ, blood 7 700 PO Box chemistry, Medical 1522, unspecified Center Dr Kalpesh, [facility] [place], 120, [id number], [place], [facility], tel:[phone] , [place]. tel: [phone] Associates Roberto Female May-0 Cutler Referring In Womens infertility, 2-201 Awa. Provider: Juliocesar ENG, unspecifiedFema 7 700 Awa PO Box le infertility, Medical Cutler T, 1522, unspecified Center [address], [facility], 120, [place] [id number], [facility] 120, Roberto COLEMAN, tel:[phone] [place], , . [id number]. tel: tel:[phone] Family History Family Member Diagnosis Age At Onset Maternal Grandfather Cardiovascular Disease Maternal Grandfather Diabetes Maternal Grandmother Diabetes Maternal Grandmother Hypertension Father Kidney Disease Maternal Grandfather Lung Disease Immunizations Vaccine Date Status Comments Tdap completed Source: New Immunization Record Influenza, injectable, completed Source: New Immunization Record quadrivalent, preservative free, 3 yrs or older Payers Payer name Insurance type Covered democrat ID Authorization(s) [facility] [id number] [facility] [id number] [facility] [id number] Social History Type Description Quantity Date Captured Alcohol Use Details No Caffeine Use Details Tobacco Use Status Never smoked tobacco Smoking Status Never smoker Vital Signs Date / Height Weight BMI Pulse Blood Temperature Respiratory Body Head BMI Time: Rate Pressure Rate Surface Circumference percentile Area 187.90 73 110/73 97.60 F -2018 lbs /min mm[Hg] 11:11 AM Chief Complaint And Reason For Visit Most recent encounter only, dated '12/06/2017 11:00'. examination (chief complaint). Description: On 10/18/2017 she had a C/S (LT) of a 37 week3 day female (Indra) weighing 6# 7 oz. (2928g) at [facility] by Lloyd Bhatia DO. Apgars: 7/9. She had no delivery complications. Her was complicated by Pre-eclampsia duringpregnancy in third. Her last pap smear was WNL on 10/07/2015. Reason For Referral Reason For Referral Unknown Plan Of Care Date Type Action Status Goal Lifestyle education regarding completed diet Goal Lifestyle education regarding completed diet Goal Lifestyle education regarding completed diet Goal Lifestyle education regarding completed diet Appointment Christy Luna BOOKED Future Order: Radiology Order OB Detailed Complete Ultrasound Ordered ([id number]) Date Type Problem Goal Intervention Status Start Date Unknown. History Of Present Illness Encounter Date Complaint History Of Present Illness examination On 10/18/2017 she had a C/S (LT) of a 37 week 3 day female (Indra) weighing 6# 7 oz. (2928g) at [facility] by Lloyd Bhatia DO. Apgars: 7/9. She had no delivery complications. Her was complicated by Pre-eclampsia during in third. Her last pap smear was WNL on 10/07/2015. Functional Status Encounter Date Functional Assessment Cognitive [...]
--- OUTSIDE RECORDS SUMMARY | 2018-01-08 19:12 | External Medical Summary | Continuity of Care Document ---
:1990 Author Organization [facility] Address [address] [place], [place] [id number] Phone Care Team Providers Name Role Phone [...] Active Depression Active Active Procedures Procedure Date Unknown Results Test Name Date and Time Measure Units Reference Range Abnormal Flag Comments Unknown Advance Directives Directive Yes / No Effective Date File Name Unknown Encounters Encounter Practice Location Reason(s) Diagnoses Date Provider Care Team Description For Visit Members Bhavani Mejia Puerperal Brian-1 Sobbing Referring In Womens psychosisEncounte 6-201 [place]. Provider: Juliocesar ENG r for 8 700 Awa PO Box surveillance of Medical Cutler T, 1522, other Center 700 [facility], tpartum Suite Center [id number], Follow-Up, 120, Lopez 120, [place] Routine Roberto Mejia, tel:+ [place], [address], [id number]. [place]. tel: tel: [phone] Bhavani Mejia Brian-0 Sobbing In Womens 3-201 [place]. Juliocesar ENG, 8 700 PO Box Medical 1522, [place], [place], [address] [id number], 120, [place] Roberto, tel:+ [place], [address], [place]. tel: [phone] Bhavani Mejia Iron deficiency Dakota-1 Sobbing Referring In Womens anemia, 8 [place]. Provider: Nona Freedtpa 8 700 Awa PO Box rtum Follow-Up, Medical Cutler T, 1522, Routine Center [address] [place] [address], Suite Center [id number], 120, Lopez 120, [place] Roberto Meija, tel:+ [place], [address], [id number]. [place]. tel: tel: [phone] Bhavani Mejia Anemia, Dakota-0 Sobbing Referring In Womens unspecifiedAnemia 4-201 [place]. Provider: Juliocesar ENG, , 8 700 Aaw PO Box unspecifiedPostpa Medical [place] T, 1522, rtum Follow-Up, Center [address] [place] [address], Suite Center [id number], 120, Lopez 120, [place] Roberto Mejia, tel:+ [place], [address], [id number]. [place]. tel: tel: [phone] Bhavani Mejia Obesity, Apr-2 Sobbing Referring In Womens unspecified 3-201 [place]. Provider: Juliocesar ENG, 8 700 Awa PO Box Medical [place]ler T, 1522, Center 700 [facility], Suite Center [id number], 120, Lopez 120, [place] Roberto Mejia, tel:+ [place], [address], [id number]. [place]. tel: tel: [phone] Bhavani Mejia Obesity, Mar-2 Sobbing Referring In Womens unspecified 6-201 Lloyd. Provider: Juliocesar ENG, 8 700 Awa PO Nacho Medical [place] T, 152, Center 700 [facility], Suite Center [id number], 120, Lopez 120, [place] Roberto Mejia, tel:+ [place], [address], [id number]. [place]. tel: tel: [phone] Bhavani Mejia Suprvsn of preg w Mar-0 Sobbing Referring In Womens history of 1- Lloyd. Provider: Juliocesar ENG, infertility, 8 700 Awa PO Nacho second trimester Medical [place]ler T, 152, Center [address] [place] [address], Suite Center [id number], 120, Lopez 120, [place] Roberto Mejia, tel: [place], [address], [id number]. [place]. tel: tel: [phone] Bhavani Mejia Suprvsn of preg w Feb-0 Sobbing Referring In Womens history of 1-201 Lloyd. Provider: Juliocesar ENG, infertility, 8 700 Awa Nacho second Medical Cutler T, 152, trimesterVelament Center [address] [place] [address], ous insertion of [facility], umbilical cord, Suite Center [id number], unsp trimester 120, Lopez 120, [place] Roberto Mejia, [place]: [place], [address], [id number]. [place]. tel: tel: [phone] Bhavani Mejia Suprvsn of preg w Feb-0 Sobbing Referring In Womens Ultrasound history of 1-201 Lloyd. Provider: Juliocesar ENG, infertility, 8 700 Awa PO Nacho second trimester Medical Cutler T, 1522, Center [address] [place] [address], Suite Center [id number], 120, Lopez 120, [place] Roberto Mejia, tel: [place], [address], [id number]. [place]. tel: tel: [phone] Associates Roberto Suprvsn of preg w [place]-0 Sobbing Referring In Womens history of 4-201 Lloyd. Provider: Juliocesar ENG, infertility, 8 700 Awa PO Box second trimester Medical Cutler T, 152, Center [address] [place] [address], Suite Center [id number], 120, Lopez 120, [place] Roberto Mejia, [place]: [place], [address], [id number]. [place]. tel: tel: [phone] Bhavani Mejia Nov-0 Sobbing Referring In Womens 9-201 Lloyd. Provider: Juliocesar ENG, 7 700 Awa PO Box Medical Cutler T, 152, Center [address] [place] [address], Suite Center [id number], 120, Lopez 120, [place] Roberto Mejia, [place]: [place], [address], [id number]. [place]. tel: tel: [phone] Bhavani Mejia Irregular Menses Dakota-2 Cutler Referring In Womens 1-201 Awa. Provider: Juliocesar ENG, 7 700 Awa PO Box Medical Cut[place] T, 152, Center [facility] Dr Kalpesh, [facility], 120, Center [id number], Roberto, [facility] 120, [place] Roberto COLEMAN, tel:[phone] [place], , [place]. [id number]. tel: tel: [phone] Associates Roberto Irregular May-2 Cutler Referring In Womens MensesFemale 5-201 Awa. Provider: Juliocesar ENG, infertility 7 700 Awa PO Box associated with Medical Cutler T, 1522, anovulation Center [facility] Dr Kalpesh, [facility], 120, Center [id number], Roberto, Lopez 120, [place] Roberto COLEMAN, tel:[phone] [facility] , [place]. [id number]. tel: tel: [phone] Associates Roberto Female May-2 Cutler Referring In Womens infertility, 2-201 Awa. Provider: Juliocesar ENG, unspecified 7 700 Awa PO Box Medical [place] T, 1522, Center [address] Dr Kalpesh, [facility], 120, [place] [id number], [facility] 120, Roberto COLEMAN, tel: [phone] [place], , [place]. [id number]. tel: tel:[phone] Associates Roberto Abnormal finding May-0 Cutler In Womens of blood 8-201 Awa. Health VELASQUEZ, chemistry, 7 700 PO Box unspecified Medical 1522, Center Dr Kalpesh, [facility], 120, [id number], Mejia, [facility], tel: [phone] , . tel: [phone] Associates Roberto Female May-0 Cutler Referring In Womens infertility, 2-201 Awa. Provider: Juliocesar ENG, unspecifiedFemale 7 700 Awa PO Box infertility, Medical [place] T, 1522, unspecified Center [facility] Dr Kalpesh, [facility], 120, [place] [id number], [facility] 120, Roberto COLEMAN, tel:+ [phone] [place], , [place]. [id number]. tel: tel: [phone] Family History Family Member Diagnosis Age At Onset Maternal Grandfather Cardiovascular Disease Maternal Grandfather Diabetes Maternal Grandmother Diabetes Maternal Grandmother Hypertension Father Kidney Disease Maternal Grandfather Lung Disease Immunizations Vaccine Date Status Comments Tdap completed Source: New Immunization Record Influenza, injectable, completed Source: New Immunization Record quadrivalent, preservative free, 3 yrs or older Payers Payer name Insurance type Covered alliance party ID Authorization(s) [facility] [id number] [facility] [id number] [facility] [id number] Social History Type Description Quantity Date Captured Unknown Vital Signs Date / Height Weight BMI Pulse Blood Temperature Respiratory Body Head BMI Time: Rate Pressure Rate Surface Circumference percentile Area Unknown Chief Complaint And Reason For Visit Unknown Chief Complaint And Reason For Visit Reason For Referral Reason For Referral Unknown Plan Of Care Date Type Action Status Goal Lifestyle education regarding completed diet Goal Lifestyle education regarding completed diet Goal Lifestyle education regarding completed diet Goal Lifestyle education regarding completed diet Appointment Christy Luna BOOKED Future Order: Radiology Order OB Detailed Complete Ultrasound Ordered ([id number]) Date Type Problem Goal Intervention Status Start Date Unknown. History Of Present Illness Encounter Date Complaint History Of Present Illness This patient has no known history of present illness Functional Status Encounter Date Functional Assessment Cognitive [...]
--- OUTSIDE RECORDS SUMMARY | 2018-01-08 19:12 | External Medical Summary | Continuity of Care Document ---
:1990 Author Organization [facility] Address [address] [place], [place] [id number] Phone Care Team Providers Name Role Phone [...] Effective Dates (start - stop) Clinical Status Abnlt in heart rate and rhythm - comp labor and delivery Puerperal psychosis Encounter for surveillance of other [...] Active Depression Active Active Procedures Procedure Date Routine care and delivery Results Test Name Date and Time Measure Units Reference Range Abnormal Flag Comments Unknown Advance Directives Directive Yes / No Effective Date File Name Unknown Encounters Encounter Practice Location Reason(s) Diagnoses Date Provider Care Team Description For Visit Members Bhavani Mejia Puerperal Nov- Sobbing Referring In Womens psychosisEncounte 6 [place]. Provider: lazaro Freed for 8 700 Awa PO Box surveillance of Medical Cutler T, 152, other Center 700 [place], [facility], [facility], tpartum Suite Center [id number], Follow-Up, 120, Lopez 120, [place] Routine Roberto Mejia, tel: [place], [address], [id number]. [place]. tel: tel: [phone] Bhavani Mejia Iron deficiency Oct- Sobbing Referring In Womens anemia, Noble. Provider: Juliocesar ENG, unspecifiedPostpa 8 700 Awa PO Box rtum Follow-Up, [facility] Cutler T, 1521, Routine Center [address] [place] [address], [facility], Suite Center [id number], 120, Lopez 120, [place] Roberto Mejia, tel: [place], [address], [id number]. [place]. tel: tel: [phone] Bhavani Mejia Anemia, Dakota-0 Sobbing Referring In Womens unspecifiedAnemia Noble. Provider: Juliocesar ENG, , 8 700 Awa PO Box unspecifiedPostpa [facility] Cutler T, 1521, rtum Follow-Up, Center [address] [place] [address], [facility], Suite Center [id number], 120, Lopez 120, US Roberto Mejia, tel: [place], [address], [id number]. [place]. tel: tel: [phone] Bhavani Mejia Abnlt in September- Sobbing Referring In Womens heart rate and Noble. Provider: Juliocesar ENG, rhythm comp labor 8 700 Awa PO Box and delivery [facility] Cutler T, 152, Center [address] [place] [address], [facility], Suite Center [id number], 120, Lopez 120, [place] Roberto Mejia, [place]: [place], [address], [id number]. [place]. tel: tel: [phone] Bhavani Mejia Obesity, Apr-2 Sobbing Referring In Womens unspecified 3- Lloyd. Provider: Juliocesar ENG, 8 700 Awa PO Nacho [facility] Cutler T, 1522, Center [address] [place] [address], Suite Center [id number], 120, Lopez 120, [place] Roberto Mejia, [place]: [place], [address], [id number]. [place]. tel: tel: [phone] Bhavani Mejia Obesity, Mar-2 Sobbing Referring In Womens unspecified 6- Lloyd. Provider: Juliocesar ENG, 8 700 Awa PO Nacho [facility] Cutler T, 1522, Center [address] [place] [address], Suite Center [id number], 120, Lopez 120, US Roberto Mejia, tel: [place], [address], [id number]. [place]. tel: tel: [phone] Bhavani Mejia Suprvsn of preg w Mar-0 Sobbing Referring In Womens history of Lloyd. Provider: Juliocesar ENG, infertility, 8 700 Awa PO Nacho second trimester Medical Cutler T, 1522, Center 700 [facility], Suite Center [id number], 120, Lopez 120, US Roberto Mejia, tel: [place], [address], [id number]. [place]. tel: tel: [phone] Bhavani Mejia Suprvsn of preg w Feb-0 Sobbing Referring In Womens history of Lloyd. Provider: Juliocesar ENG, infertility, 8 700 Awa [facility] second Medical Cutler T, 1522, trimesterVelament Center 700 [place], ous insertion of [facility], umbilical cord, Suite Center [id number], unsp trimester 120, Lopez 120, [place] Roberto Mejia, tel: [place], [place], [address], [id number]. [place]. tel: tel: [phone] Bhavani Mejia Suprvsn of preg w Jun-0 Sobbing Referring In Womens Ultrasound history of - Lloyd. Provider: Juliocesar ENG, infertility, 8 700 Awa PO Box second trimester Medical Cutler T, 1522, Center [address] [place] [address], Suite Center [id number], 120, Lopez 120, US Roberto Mejia, tel: [place], [address], [id number]. [place]. tel: tel: [phone] Bhavani Mejia Suprvsn of preg w May-0 Sobbing Referring In Womens history of - Lloyd. Provider: Juliocesar ENG, infertility, 8 700 Awa PO Box second trimester Medical Cutler T, 1522, Center [address] [place] [address], Suite Center [id number], 120, Lopez 120, US Roberto Mejia, tel: [place], [address], [id number]. [place]. tel: tel: [phone] Bhavani Mejia Nov-0 Sobbing Referring In Womens - Lloyd. Provider: Juliocesar ENG, 7 700 Awa [facility] Cutler T, 1522, Center [address] [place] [address], Suite Center [id number], 120, Lopez 120, US Roberto Mejia, tel: [place], [address], [id number]. [place]. tel: tel: [phone] Bhavani Mejia Irregular Menses Dakota-2 Cutler Referring In Womens -201 Awa. Provider: Juliocesar ENG, 7 700 Awa PO Box Medical Cutler T, 1522, Center [facility] [place], [facility], 120, Center [id number], Mejia, Lopez 120, [place] Roberto COLEMAN, tel:[phone] [place], , [place]. [id number]. tel: tel: [phone] Bhavani Mejia Irregular May-2 Cutler Referring In Womens MensesFemale 5-201 Awa. Provider: Health VELASQUEZ, infertility 7 700 Awa PO Box associated with Medical Cutler T, 1522, anovulation Center [address], [facility], 120, [place] [id number], Roberto [facility] 120, [place] JARED, Roberto, tel:+[phone] [place], , [place]. [id number]. tel: tel:+ [phone] Associates Roberto Female May-2 Cutler Referring In Womens infertility, 2-201 Awa. Provider: Juliocesar ENG, unspecified 7 700 Awa PO Box Medical Cutler T, 1522, Center [address], [facility], 120, [place] [id number], Roberto [facility] 120, US Roberto COLEMAN, tel:+ [phone] [place], , [place]. [id number]. tel: tel:[phone] Associates Roberto Abnormal finding May-0 Cutler In Womens of blood 8-201 Awa. Health VELASQUEZ, chemistry, 7 700 PO Box unspecified Medical 1522, Center Dr Kalpesh, [facility] [place], 120, [id number], Roberto, JARED, tel:+ [phone] , [place]. tel: [phone] Associates Roberto Female May-0 Cutler Referring In Womens infertility, 2-201 Awa. Provider: Juliocesar ENG, unspecifiedFemale 7 700 Awa PO Box infertility, Medical Cutler T, 1522, unspecified Center [address], [facility], 120, [place] [id number], Roberto [facility] 120, US Roberto COLEMAN, tel:+[phone] [place], , [place]. [id number]. tel: tel:[phone] Family History Family Member Diagnosis Age At Onset Maternal Grandfather Cardiovascular Disease Maternal Grandfather Diabetes Maternal Grandmother Diabetes Maternal Grandmother Hypertension Father Kidney Disease Maternal Grandfather Lung Disease Immunizations Vaccine Date Status Comments Tdap completed Source: New Immunization Record Influenza, injectable, completed Source: New Immunization Record quadrivalent, preservative free, 3 yrs or older Payers Payer name Insurance type Covered alliance party ID Authorization(s) [facility] [id number] [facility] [id number] [facility] [id number] Social History Type Description Quantity Date Captured Alcohol Use Details Unknown Caffeine Use Details Unknown Tobacco Use Status Unknown Smoking Status Unknown Vital Signs Date / Height Weight [...] Radiology Order OB Detailed Complete Ultrasound Ordered ([id number]) Date Type Problem Goal Intervention Status Start [...]
--- OUTSIDE RECORDS SUMMARY | 2018-01-08 19:13 | External Medical Summary | Continuity of Care Document ---
:1990 Author Organization [facility] Address [address] [place], [place] [phone] Phone Care Team Providers Name Role Phone Shital Arguello DO Unavailable Unavailable Allergies, Adverse Reactions, Alerts Substance Reaction Severity Status Sulfa (Sulfonamide Antibiotics) Unknown Active codeine Unknown Active Medications Medication Instructions Dosage Effective Dates Status Comments (start - stop) ferrous sulfate take 1 tablet by - Active 325 mg (65 mg oral route 2 x every iron) tablet day Vitamin take 1 tablet by Not Available - Active tablet oral route every day Problems Condition Effective Dates (start - stop) Clinical Status Female infertility, unspecified Female infertility, unspecified Obesity, unspecified - Iron deficiency anemia, unspecified Follow-Up, Routine Anemia, unspecified Anemia, unspecified Follow-Up, Routine - Obesity, unspecified - Irregular Menses Female infertility associated with anovulation Irregular Menses - Female infertility, unspecified - Suprvsn of preg [...] Provider Care Team Description For Visit Members Associates Roberto Iron deficiency Dakota-1 Sobbing Referring In Womens anemia, 8-201 [place]. Provider: Marques Freed 8 700 Awa PO Box rtum Follow-Up, [facility], 1522, Routine Center [address] [place] [address], Suite Center [id number], 120, Lopez 120, [place] Roberto Mejia, tel:+ [place], [address], [id number]. [place]. tel: tel: [phone] Associates Roberto Anemia, Dakota-0 Sobbing Referring In Womens unspecifiedAnemia 4-201 [place]. Provider: Juliocesar ENG, , 8 700 Awa PO Box unspecifiedPosa [facility], 1522, rtum Follow-Up, Center [address] [place] [address], Suite Center [id number], 120, Lopez 120, [place] Roberto Mejia, tel:+ [place], [address], [id number]. [place]. tel: tel: [phone] Associates Roberto Dakota-0 Sobbing In Womens 1-201 [place]. Juliocesar ENG, 8 [address] [facility] 1522, [place], [place], Suite [id number], 120, [place] Roberto, tel:+ [place], [address], [place]. tel: [phone] Associates Roberto Obesity, Apr-2 Sobbing Referring In Womens unspecified 3-201 [place]. Provider: Juliocesar ENG, 8 700 [facility], Center [address] [place] [address], Suite Center [id number], 120, Lopez 120, US Roberto Mejia, tel:+316 [place], [place], [address], [id number]. [place]. tel: tel: [phone] Associates Roberto Obesity, Mar-2 Sobbing Referring In Womens unspecified 6-201 [place]. Provider: Juliocesar ENG, 8 700 Awa [facility], 1522, Center [address] [place] [address], Suite Center [id number], 120, Lopez 120, [place] Roberto Mejia, tel:+ [place], [address], [id number]. [place]. tel: tel: [phone] Bhavani Mejia Suprvsn of preg w Mar-0 Sobbing Referring In Womens history of 1-201 Lloyd. Provider: Juliocesar ENG infertility, 8 700 Awa PO Box second trimester Medical Cutler T, 1522, Center 700 [facility], Suite Center [id number], 120, Lopez 120, US Roberto Mejia, tel: [place], [address], [id number]. [place]. tel: tel: [phone] Bhavani Mejia Suprvsn of preg w Feb-0 Sobbing Referring In Womens history of 1- Lloyd. Provider: Juliocesar ENG infertility, 8 700 Awa PO Box second Medical Cutler T, 1522, trimesterVelament Center 700 [place], ous insertion of [facility], umbilical cord, Suite Center [id number], unsp trimester 120, Lopez 120, US Roberto Mejia, tel: [place], [address], [id number]. [place]. tel: tel: [phone] Bhavani Mejia Suprvsn of preg w Feb-0 Sobbing Referring In Womens Ultrasound history of 1- Lloyd. Provider: Juliocesar ENG infertility, 8 700 Awa PO Box second trimester Medical Cutler T, 1522, Center 700 [facility], Suite Center [id number], 120, Lopez 120, US Roberto Mejia, tel: [place], [address], [id number]. [place]. tel: tel: [phone] Bhavani Mejia Suprvsn of preg w [place]-0 Sobbing Referring In Womens history of 4-201 Lloyd. Provider: Juliocesar ENG infertility, 8 700 Awa PO Box second trimester Medical Cutler T, 1522, Center 700 [facility], Suite Center [id number], 120, Lopez 120, [place] Roberto Mejia, tel: [place], [address], [id number]. [place]. tel: tel: [phone] Associates Roberto Nov-0 Sobbing Referring In Womens 9-201 Lloyd. Provider: Juliocesar ENG, 7 700 Awa PO Box Medical Cutler T, 152, Center 700 [address], [facility], Suite Center [id number], 120, Lopez 120, [place] Roberto Mejia, tel: [place], [address], [id number]. [place]. tel: tel: [phone] Associates Roberto Irregular Menses Dakota-2 Cutler Referring In Womens 1-201 Awa. Provider: Juliocesar ENG, 7 700 Awa PO Box Medical Cutler T, 1521, Center [address] Dr Kalpesh, [facility], 120, Center [id number], Roberto, [facility] 120, [place] Roberto COLEMAN, tel:[phone] [place], , [place]. [id number]. tel: tel: [phone] Associates Roberto Irregular May-2 Cutler Referring In Womens MensesFemale 5-201 Awa. Provider: Juliocesar ENG, infertility 7 700 Awa PO Box associated with Medical Cutler T, 1521, anovulation Center [facility] Dr Kalpesh, [facility], 120, Center [id number], Roberto, [facility] 120, [place] Roberto COLEMAN, tel:[phone] [place], , [place]. [id number]. tel: tel: [phone] Associates Roberto Female May-2 Cutler Referring In Womens infertility, 2-201 Awa. Provider: Juliocesar ENG, unspecified 7 700 Awa PO Box Medical Cutler T, 152, Center [address], [facility], 120, Center [id number], Roberto, [facility] 120, [place] Roberto COLEMAN, tel:[phone] [place], , [place]. [id number]. tel: tel: [phone] Associates Roberto Abnormal finding May-0 Cutler In Womens of blood 8-201 Awa. Health [facility], chemistry, 7 700 PO Box unspecified Medical 1522, Center Dr Kalpesh, [facility] [place], 120, [id number], Roberto, [place], tel: [phone] , [place]. tel: [phone] Associates Roberto Female May-0 Cutler Referring In Womens infertility, 2-201 Awa. Provider: Health VELASQUEZ, unspecifiedFemale 7 700 Awa PO Box infertility, Medical Cutler T, 1522, unspecified Center [address] Dr Kalpesh, [facility] [place], 120, [place] [id number], [place] [address], JARED, Roberto, tel: [phone] [place], , [place]. [id number]. tel: tel: [phone] Family History Family Member Diagnosis Age At Onset Maternal Grandfather Cardiovascular Disease Maternal Grandfather Diabetes Maternal Grandmother Diabetes Maternal Grandmother Hypertension Father Kidney Disease Maternal Grandfather Lung Disease Immunizations Vaccine Date Status Comments Tdap completed Source: New Immunization Record Influenza, injectable, completed Source: New Immunization Record quadrivalent, preservative free, 3 yrs or older Payers Payer name Insurance type Covered alliance party ID Authorization(s) [facility] [id number] [facility] [id number] [facility] [id number] Social History Type Description Quantity Date Captured [...] Radiology Order OB Detailed Complete Ultrasound Ordered ([id number]) Date Type Problem Goal Intervention Status Start [...]
--- OUTSIDE RECORDS SUMMARY | 2018-01-08 19:13 | External Medical Summary | Continuity of Care Document ---
:1990 Author Organization [facility] Address [address] [place], [place] [phone] Phone Care Team Providers Name Role Phone [...] Effective Dates (start - stop) Clinical Status Supervision of other high risk - pregnancies, third trimester Gestational htn w/o significant - proteinuria, third trimester Velamentous insertion of umbilical - cord, third trimester 34 weeks gestation of - Female infertility, unspecified Female infertility, unspecified Obesity, unspecified - Suprvsn of preg w history of - infertility, third trimester Supervision of other high risk - pregnancies, third trimester Velamentous insertion of umbilical - cord, third trimester Obesity, unspecified - Suprvsn of preg w history of - infertility, third trimester Supervision of other high risk - pregnancies, third trimester 28 weeks gestation of - Irregular Menses Female infertility associated with anovulation Irregular Menses - Female infertility, unspecified - Suprvsn of preg w history of - infertility, first trimester Supervision of other high risk - pregnancies, first trimester Obesity complicating , first - trimester 8 weeks gestation of - Suprvsn of preg w history of - infertility, first trimester Supervision of other high risk - pregnancies, first trimester 10 weeks gestation of - Suprvsn of preg w history of - infertility, first trimester Supervision of other high risk - pregnancies, first trimester Obesity complicating , first - trimester 12 weeks gestation of - Suprvsn of preg w history of - infertility, second trimester Supervision of other high risk - pregnancies, second trimester Velamentous insertion of umbilical - cord, second trimester Obesity complicating , second - trimester Suprvsn of preg w history of - infertility, second trimester Supervision of other high risk - pregnancies, second trimester Velamentous insertion of umbilical - cord, unsp trimester Obesity complicating , second - trimester Suprvsn of preg w history of - infertility, second trimester Supervision of other high risk - pregnancies, second trimester Obesity complicating , second - trimester 16 weeks gestation of - Suprvsn of preg w history of - infertility, second trimester Supervision of other high risk - pregnancies, second trimester Obesity complicating , second - trimester 20 weeks gestation of - Suprvsn of preg w history of - infertility, third trimester Supervision of other high risk - pregnancies, third trimester Velamentous insertion of umbilical - cord, third trimester 30 weeks gestation of - Suprvsn of preg w history of - infertility, third trimester Supervision of other high risk - pregnancies, third trimester Gestational htn w/o significant - proteinuria, third trimester Unspecified pre-eclampsia, third - trimester Obesity complicating , third - trimester Suprvsn of preg w history of - infertility, third trimester Supervision of other high risk - pregnancies, third trimester Gestational htn w/o significant - proteinuria, third trimester 33 weeks gestation of - Suprvsn of preg w history of - infertility, third trimester Supervision of other high risk - pregnancies, third trimester Velamentous insertion of umbilical - cord, third trimester Obesity complicating , third - trimester Suprvsn of preg w history of - infertility, third trimester Supervision of other high risk - pregnancies, third trimester Unspecified pre-eclampsia, third - trimester Obesity complicating , third - trimester Supervision of other high risk - pregnancies, third trimester Velamentous insertion of umbilical - cord, third trimester 34 weeks gestation of - Supervision of other high risk - pregnancies, third trimester Velamentous insertion of umbilical - cord, third trimester Obesity complicating , third - trimester 28 weeks gestation of - Supervision of other high risk - pregnancies, third trimester Gestational htn w/o significant - proteinuria, third trimester Velamentous insertion of umbilical - cord, third trimester Encounter For Screening For - Streptococcus B Gestational htn w/o significant - proteinuria, third trimester Gestational htn w/o significant - proteinuria, third trimester Velamentous insertion of umbilical - cord, third trimester Obesity complicating , third - trimester 35 weeks gestation of - Unspecified pre-eclampsia, third - trimester Velamentous insertion of umbilical - cord, third trimester Obesity complicating , third - trimester 36 weeks gestation of - Velamentous insertion of umbilical - cord, third trimester Obesity complicating , third - trimester 32 weeks gestation of - Abnormal finding of blood chemistry, unspecified Asthma Active Depression Active Procedures Procedure Date biophys prfl w/o nstress test Results Test Name Date and Time Measure Units Reference Range Abnormal Flag Comments Unknown Advance Directives Directive Yes / No Effective Date File Name Unknown Encounters Encounter Practice Location Reason(s) Diagnoses Date Provider Care Team Description For Visit Members Bhavani Braswell of preg w September-2 Sobbing Referring In Womens history of Lloyd. Provider: Juliocesar ENG, infertility, 8 [address] third Medical Cutler T, 152, trimester[facility] [address], ion of other high [address], Medical [place], risk pregnancies, Suite Center [id number], third 120, [place] 120, [place] trimesterVelament Roberto Mejia, tel:+2 ous insertion [place], umbilical cord, [address], [id number]. third [place]. tel:+316 trimesterObesity tel: [phone] complicating [id number] , third trimester Associates Roberto Harrisn of preg w September-2 Sobbing Referring In Womens history of Lloyd. Provider: Juliocesar ENG, infertility, 8 700 Awa [address] third Medical Cutler T, 152, trimesterSupervis Center [address], ion of other high Drive, Medical [place], risk pregnancies, Suite Center [id number], third 120, [place] 120, [place] trimesterUnspecif Roberto Mejia, tel:+2 ied [place], pre-ecl[place], [address], [id number]. third [place]. tel:+316 trimesterObesity tel: [phone] complicating [id number] , third trimester Associates Roberto Unspecified September- Sobbing Referring In Womens Ultrasound pre-eclampsia, Lloyd. Provider: Juliocesar ENG, third 8 700 Awa PO Box trimesterVelament Medical Cutler T, 1522, ous insertion of Center [address], umbilical cord, Drive, Medical [place], third Suite Center [id number], trimesterObesity 120, Lopez 120, [place] complicating Roberto Mejia, tel:[phone] , third [place], [email or web address] weeks [address], [id number]. gestation of [place]. tel: tel: [phone] Bhavani Mejia Suprvsn of preg w Sobbing Referring In Womens history of Lloyd. Provider: Health PA, infertility, 8 700 Awa PO Box third Medical Cutler T, 1522, trimesterSupervis Center [address], ion of other high Drive, [place], risk pregnancies, Suite Center [id number], third 120, [place] 120, [place] trimesterGestatio Roberto Mejia, tel: nal htn [place], [place] [address], [id number]. proteinuria, [place]. tel: third tel: [phone] trimesterUnspecif [id number] ied pre-eclampsia, third trimesterObesity complicating , third trimester Bhavani Mejia Supervision of Sobbing Referring In Womens other high risk Lloyd. Provider: Health PA, pregnancies, 8 700 Awa PO Box third Medical Cutler T, 1522, trimesterGestatio Center [address], nal htn w/o [employer], [facility] [place], significant Suite Center [id number], proteinuria, 120, [place] 120, [place] third Roberto Mejia, tel: trimesterVelament [place] [address], [id number]. umbilical cord, [place]. tel: third tel: [phone] trimesterEncounte [id number] r For Screening For Streptococcus B Bhavani Mejia Gestational htn Sobbing Referring In Womens Ultrasound w/o significant Lloyd. Provider: Health PA, proteinuria, 8 700 Awa PO Box third Medical Cutler T, 1522, trimesterVelament Center [address], ous insertion of [place], umbilical cord, Suite Center [id number], third 120, [place] 120, [place] trimesterObesity Roberto Mejia, tel: complicating [place], [place], , third [address], [id number]. [id number] weeks [place]. tel:+1-316 gestation of tel: [phone] Bhavani Mejia Supervision of May-0 Sobbing Referring In Womens other high risk 7-201 Lloyd. Provider: Health PA, pregnancies, 8 700 Awa PO Box third Medical Cutler T, 152, trimesterVelament Center [address], ous insertion of [employer], [facility] [place], umbilical cord, Suite Center [id number], third [id number] 120, Lopez 120, [place] weeks gestation Roberto Mejia, tel: [place], [address], [id number]. [place]. tel: tel: [phone] Bhavani Mejia Supervision of May-0 Sobbing Referring In Womens Ultrasound other high risk 7-201 Lloyd. Provider: Health PA, pregnancies, 8 700 Awa PO Box third Medical Cutler T, 1521, trimesterGestatio Center [address], nal htn w/o [facility], [facility], significant Suite Center [id number], proteinuria, 120, Lopez 120, [place] third Roberto Mejia, tel: trimesterVelament [place] [address], [id number]. umbilical cord, [place]. tel: third [id number] tel: [phone] weeks gestation [id number] of [facility] Gestational htn May-0 Sobbing Referring In Womens w/o significant 1-201 Lloyd. Provider: Juliocesar ENG, proteinuria, 8 700 Awa PO Box third trimester Medical Cutler T, 1521, Center [address], [facility], [facility], Suite Center [id number], 120, Lopez 120, [place] Roberto Mejia, tel: [place], [address], [id number]. [place]. tel: tel: [phone] Bhavani Mejia Suprvsn of preg w Apr-3 Sobbing Referring In Womens history of 0-201 Lloyd. Provider: Juliocesar ENG, infertility, 8 700 Awa PO Box third Medical Cutler T, 152, trimesterSupervis Center [address], ion of other high [facility], [facility], risk pregnancies, Suite Center [id number], third 120, [place] 120, [place] trimesterGestatio Roberto Mejia, tel: nal htn w/[place], [place] [address], [id number]. proteinuria, [place]. tel: third [email or web address] tel: [phone] weeks gestation [id number] of Associates Roberto Obesity, Apr-2 Sobbing Referring In Womens unspecifiedSuprvs 3 Lloyd. Provider: Health PA, n of preg w 8 700 Awa PO Box history of Medical Cutler T, 1521, infertility, Center [address] [place] [address], trimesterSupervis Suite Center [id number], ion of other high 120, Lopez 120, [place] risk pregnancies, Roberto Mejia, tel: third [place], trimesterVelament [address], [id number]. ous insertion of [place]. tel: umbilical cord, tel: [phone] third trimester [id number] Associates Roberto Velamentous Apr-2 Sobbing Referring In Womens Ultrasound insertion of Lloyd. Provider: Health PA, umbilical cord, 8 700 Awa PO Box third Medical Cutler T, 1521, trimesterObesity Center [facility], , third Suite Center [id number], [id number] weeks 120, Lopez 120, [place] gestation of Roberto Mejia, tel: [place], [address], [id number]. [place]. tel: tel: [phone] Associates Roberto Suprvsn of preg w Apr-0 Sobbing Referring In Womens history of 9 Lloyd. Provider: Health PA, infertility, 8 700 Awa PO Box third Medical Cutler T, 1521, trimesterSupervis Center [address] [place], ion of other high [facility], [facility], risk pregnancies, Suite Center [id number], third 120, Lopez 120, [place] trimesterVelament Robreto Mejia, tel: ous insertion [place], umbilical cord, [address], [id number]. third [id number] [place]. tel: weeks gestation tel: [phone] of [id number] Associates Roberto Obesity, Mar-2 Sobbing Referring In Womens unspecifiedSuprvs 6- Lloyd. Provider: Health VELASQUEZ, n of preg w 8 700 Awa PO Box history of Medical Cutler T, 152, infertility, Center [address] [place], [address], Medical [place], trimesterSupervis Suite Center [id number], ion of other high 120, Lopez 120, [place] risk pregnancies, Roberto Mejia, tel:+ third [id number] [place], [place], weeks gestation [address], [id number]. of [place]. tel: tel: [phone] Bhavani Mejia Supervision of Jul-2 Sobbing Referring In Womens Ultrasound other high risk - Lloyd. Provider: Health PA, pregnancies, 8 700 Awa PO Box third Medical Cutler T, 152, trimesterVelament Center [address] [place], ous insertion of Drive, [facility] [place], umbilical cord, Suite Center [id number], third 120, Lopez 120, [place] trimesterObesity Roberto Mejia, tel: complicating [place], [place], , third [address], [id number]. [id number] weeks [place]. tel: gestation of tel: [phone] Associates Roberto Suprvsn of preg w Mar-0 Sobbing Referring In Womens history of Lloyd. Provider: Juliocesar ENG, infertility, 8 700 Awa PO Box second Medical Cutler T, 152, trimesterSupervis Center [address] [place], ion of other high Drive, Medical [place], risk pregnancies, Suite Center [id number], second 120, [place] 120, [place] trimesterVelament Roberto Mejia, tel: ous insertion of [place], umbilical cord, [address], [id number]. second [place]. tel: trimesterObesity tel: [phone] complicating [id number] , second trimester Associates Roberto Suprvsn of preg w Feb-0 Sobbing Referring In Womens history of Lloyd. Provider: Juliocesar ENG, infertility, 8 700 Awa PO Box second Medical Cutler T, 152, trimesterSupervis Center [address] [place], ion of other high Drive, Medical [place], risk pregnancies, Suite Center [id number], second 120, Lopez 120, [place] trimesterVelament Roberto Mejia, tel: ous insertion [place], umbilical cord, [address], [id number]. unsp [place]. tel: trimesterObesity tel: [phone] complicating [id number] , second trimester Associates Roberto Suprvsn of preg w Feb-0 Sobbing Referring In Womens Ultrasound history of 1- Lloyd. Provider: Health PA, infertility, 8 700 Awa PO Box second Medical Cutler T, 1522, trimesterSupervis Center [address] [place], ion of other high Drive, Medical [place], risk pregnancies, Suite Center , second 120, Lopez 120, [place] trimesterObesity Roberto Mejia, tel: complicating [place], [place], , second [address], [id number]. [id number] weeks [place]. tel: gestation of tel: [phone] Associates Roberto Suprvsn of preg w [place]-0 Sobbing Referring In Womens history of - Lloyd. Provider: Health PA, infertility, 8 700 Awa PO Box second Medical Cutler T, 1522, trimesterSupervis Center [address] [place], ion of other high Drive, Medical [place], risk pregnancies, Suite Center [id number], second 120, Lopez 120, [place] trimesterObesity Roberto Mejia, tel: complicating [place], [place], , second [address], [id number]. [id number] weeks [place]. tel: gestation of tel: [phone] Associates Roberto Suprvsn of preg w Dec-0 Sobbing Referring In Womens history of - Lloyd. Provider: Health PA, infertility, 7 700 Awa PO Box first Medical Cutler T, 1522, trimesterSupervis Center [address] [place], ion of other high Drive, Medical [place], risk pregnancies, Suite Center [id number], first 120, Lopez 120, [place] trimesterObesity Roberto Mejia, tel: complicating [place], [place], , first [address], [id number]. [id number] weeks [place]. tel: gestation of tel: [phone] Associates Roberto Suprvsn of preg w Nov-2 Sobbing Referring In Womens history of 0-201 Lloyd. Provider: Juliocesar ENG, infertility, 7 700 Awa PO Box first Medical Cutler T, 1521, trimesterSupervis Center [address] [place], [facility] of other high Drive, Medical [place], risk pregnancies, Suite Center [id number], first [email or web address] 120, Lopez 120, [place] weeks gestation Roberto Mejia, tel: [place], [address], [id number]. [place]. tel: tel: [phone] Associates Roberto Suprvsn of preg w Nov-0 Sobbing Referring In Womens history of 9-201 Lloyd. Provider: Juliocesar ENG, infertility, 7 700 Awa PO Box first Medical Cutler T, 1521, trimesterSupervis Center [address] [place], [facility] of other high Drive, Medical [place], risk pregnancies, Suite Center [id number], first 120, Lopez 120, [place] trimesterObesity Roberto Mejia, tel: complicating [place], [place], , first [address], [id number]. trimester8 weeks [place]. tel: gestation of tel: [phone] Associates Roberto Irregular Menses [place]-2 Cutler Referring In Womens 1-201 Awa. Provider: Juliocesar ENG, 7 700 Awa PO Box Medical Cutler T, 1521, Center [address], [facility] Medical [place], 120, Center [id number], Roberto, Lopez 120, [place] Roberto COLEMAN, tel:[phone] [place], , [place]. [id number]. tel: tel: [phone] Associates Roberto Irregular May-2 Cutler Referring In Womens MensesFemale 5-201 Awa. Provider: Juliocesar ENG, infertility 7 700 Awa PO Box associated with Medical Cutler T, 152, anovulation Center [address], [facility] Medical [place], 120, Center [id number], Roberto, Lopez 120, [place] Roberto COLEMAN, tel:[phone] [place], , [place]. [id number]. tel: tel: [phone] Associates Roberto Female May-2 Cutler Referring In Womens infertility, 2-201 Awa. Provider: Juliocesar ENG, unspecified 7 700 Awa PO Box Medical Cutler T, 1522, Center [facility] Dr Kalpesh, [facility], 120, [place] [id number], [facility], Roberto COLEMAN, tel:[phone] [place], , [place]. [id number]. tel: tel:[phone] Associates Roberto Abnormal finding May-0 Cutler In Womens of blood 8-201 Awa. Health VELASQUEZ, chemistry, 7 700 PO Box unspecified Medical 1522, Center Dr Kalpesh, [facility], 120, [id number], [place], [facility], tel: [phone] , [place]. tel: [phone] Associates Roberto Female May-0 Cutler Referring In Womens infertility, 2-201 Awa. Provider: Juliocesar ENG, unspecifiedFemale 7 700 Awa PO Box infertility, Medical Cutler T, 1522, unspecified Center [facility] Dr Kalpesh, [facility], 120, [place] [id number], [facility] 120, Roberto COLEMAN, tel: [phone] [place], , [place]. [id number]. tel: tel: [phone] Family History Family Member Diagnosis Age At Onset Maternal Grandfather Cardiovascular Disease Maternal Grandfather Diabetes Maternal Grandmother Diabetes Maternal Grandmother Hypertension Father Kidney Disease Maternal Grandfather Lung Disease Immunizations Vaccine Date Status Comments Tdap completed Source: New Immunization Record Influenza, injectable, completed Source: New Immunization Record quadrivalent, preservative free, 3 yrs or older Payers Payer name Insurance type Covered republican ID Authorization(s) [facility] [id number] [facility] [id number] [facility] [id number] Social History Type Description Quantity Date Captured [...] Status Goal Lifestyle education regarding completed diet Appointment Christy Luna BOOKED Appointment Christy Luna BOOKED Future Order: Radiology Order Biophysical Profile without NST Ordered ([id number]) Future Order: Radiology Order Ultrasound OB Follow-up ([id number]) Ordered Future Order: Radiology Order OB Detailed Complete Ultrasound Ordered ([id number]) Future Order: Radiology Order Ultrasound OB Follow-up ([id number]) Ordered Future Order: Radiology Order Biophysical Profile without NST Ordered ([id number]) Future Order: Radiology Order Ultrasound OB Follow-up ([id number]) Ordered Future Order: Radiology Order Biophysical Profile without NST Ordered ([id number]) Future Order: Radiology Order Ultrasound OB Follow-up ([id number]) Ordered Future Order: Radiology Order Biophysical Profile without NST Ordered ([id number]) Date Type Problem Goal Intervention Status Start Date Unknown. History Of Present Illness Encounter Date Complaint History Of Present Illness This patient has no known history of present illness Functional Status Encounter Date Functional Assessment Cognitive Assessment Unknown Medications Administered Medication Instructions Dosage Effective Dates (start - stop) Status Comments Drug Treatment Unknown Instructions Date Instruction Additional Information toxoplasmosis precautions (cats / raw meat) sexual [...]
--- OUTSIDE RECORDS SUMMARY | 2018-01-08 19:13 | External Medical Summary | Continuity of Care Document ---
:1990 Author Organization [facility] Address [address] [place], [place] [id number] Phone Care Team Providers Name Role Phone Saundra Shital Unavailable Unavailable Allergies, Adverse Reactions, Alerts Substance Reaction Severity Status Sulfa (Sulfonamide Antibiotics) Unknown Active codeine Unknown Active Medications Medication Instructions Dosage Effective Dates Status Comments (start - stop) Nexplanon 68 mg As Prescribed - Active subdermal implant sertraline 25 mg take 1 tablet by 25 MG - Active tablet oral route every day ferrous sulfate take 1 tablet by - No Longer 325 mg (65 mg oral route 2 x Active iron) tablet every day Vitamin take 1 tablet by Not Available - No Longer tablet oral route every Active day Problems Condition Effective Dates (start - stop) Clinical Status Puerperal psychosis Encounter for surveillance of other contraceptives Follow-Up, Routine Female infertility, unspecified Female infertility, unspecified Obesity, [...] Puerperal Sobbing Referring In Womens examination psychosisEncoun [place]. Provider: Juliocesar ENG, (chief ter for 8 700 Awa PO Box complaint) [facility], 152, other Center [address] [place] [address], ostpartum Suite Center [id number], Follow-Up, 120, Lopez 120, [place] Routine Roberto Mejia, tel:+ [place], [address], [id number]. [place]. tel: tel: [phone] Bhavani Mejia Iron deficiency Sobbing Referring In Womens anemia, [place]. Provider: Juliocesar ENG, ebenezerPost 8 700 Awa PO Box Medical Omayra T, 1521, Follow-Up, Center [address] [place] [address], [facility], Suite Center [id number], 120, Lopez 120, [place] Roberto Mejia, tel:+ [place], [address], [id number]. [place]. tel: tel: [phone] Bhavani Mejia Anemia, [place]-0 Sobbing Referring In Womens unspecifiedAnem [place]. Provider: Juliocesar ENG, ms, 8 700 Awa PO Box unspecifiedPost Medical Omayra T, 152, Center [address] [place] [address], Follow-Up, [facility], Routine Suite Center [id number], 120, Lopez 120, [place] Roberto Mejia, tel:+ [place], [address], [id number]. [place]. tel: tel: [phone] Bhavani Mejia Obesity, Apr-2 Sobbing Referring In Womens unspecified 3- [place]. Provider: Juliocesar ENG, 8 700 Awa [facility] Cutler T, 1522, Center [address] [place] [address], Suite Center [id number], 120, Lopez 120, [place] Roberto Mejia, tel:+ [place], [address], [id number]. [place]. tel: tel: [phone] Bhavani Mejia Obesity, Mar-2 Sobbing Referring In Womens unspecified 6- Lloyd. Provider: Juliocesar ENG, 8 700 Awa [facility] T, 1522, Center [address] [place] [address], Suite Center [id number], 120, Lopez 120, [place] Roberto Mejia, tel: [place], [address], [id number]. [place]. tel: tel: [phone] Bhavani Mejia Suprvsn of preg Mar-0 Sobbing Referring In Womens w history of Lloyd. Provider: Juliocesar ENG, infertility, 8 700 [facility]wa [facility], trimester Center [address] [place] [address], Suite Center [id number], 120, Lopez 120, [place] Roberto Mejia, tel: [place], [address], [id number]. [place]. tel: tel: [phone] Bhavani Mejia Suprvsn of preg Feb-0 Sobbing Referring In Womens w history of Lloyd. Provider: Juliocesar ENG, infertility, 8 700 Awa [facility] Cutler T, 1522, trimesterVelame Center [address] [place], [place] [address]ous insertion [facility], of umbilical Suite Center [id number], cord, unsp 120, Lopez 120, [place] trimester Roberto Mejia, tel: [place], [address], [id number]. [place]. tel: tel: [phone] Bhavani Mejia Suprvsn of preg Feb-0 Sobbing Referring In Womens Ultrasound w history of Lloyd. Provider: Juliocesar ENG, infertility, 8 700 Awa PO Box second Medical Cutler T, 1522, trimester Center 700 [facility], Suite Center [id number], 120, Lopez 120, [place] Roberto Mejia, tel:+ [place], [address], [id number]. [place]. tel: tel: [phone] Associates Roberto Suprvsn of preg [place]-0 Sobbing Referring In Womens w history of 4-201 Lloyd. Provider: Juliocesar ENG, infertility, 8 700 Awa PO Box second Medical Cutler T, 1522, trimester Center [address] [place] [address], Suite Center [id number], 120, Lopez 120, [place] Roberto Mejia, tel:+ [place], [address], [id number]. [place]. tel: tel: [phone] Bhavani Mejia Nov-0 Sobbing Referring In Womens 9-201 [place]. Provider: Juliocesar ENG, 7 700 Awa PO Box Medical Cutler T, 1522, Center [address] [place] [address], Suite Center [id number], 120, Lopez 120, [place] Roberto Mejia, tel: [place], [address], [id number]. [place]. tel: tel: [phone] Associates Roberto Irregular [place]-2 Cutler Referring In Womens Menses 1-201 Awa. Provider: Juliocesar ENG, 7 700 Awa PO Box Medical Cutler T, 152, Center [address], [facility], 120, Center [id number], Roberto, Lopez 120, [place] Roberto COLEMAN, tel:[phone] [place], , [place]. [id number]. tel: tel: [phone] Associates Roberto Irregular May-2 Cutler Referring In Womens MensesFemale 5-201 Awa. Provider: Juliocesar ENG, infertility 7 700 Awa PO Box associated with Medical Cutler T, 1522, anovulation Center [address], [facility], 120, Center [id number], Roberto, Lopez 120, Roberto COLEMAN, tel:+ [phone] [place], , [place]. [id number]. tel: tel: [phone] Associates Roberto Female May-2 Cutler Referring In Womens infertility, 2-201 Awa. Provider: Juliocesar ENG, unspecified 7 700 Awa PO Box Medical Cutler T, 1522, Center [address], [facility], 120, Call [id number], [place] [address], Roberto COLEMAN, tel:+[phone] [place], , . [id number]. tel: tel:+ [phone] Associates Roberto Abnormal May-0 Cutler In Womens finding of 8-201 Awa. Health VELASQUEZ, blood 7 700 PO Box chemistry, Medical 1522, unspecified Center Dr Kalpesh, [facility], 120, [id number], Mejia, [facility], tel: [phone] , [place]. tel: [phone] Associates Roberto Female May-0 Cutler Referring In Womens infertility, 2-201 Awa. Provider: Juliocesar ENG, unspecifiedFema 7 700 Awa PO Box le infertility, Medical Cutler T, 1522, unspecified Center [address], [facility], 120, Call [id number], [place] [address], Roberto COLEMNA, tel:+[phone] [place], , . [id number]. tel: tel:[phone] Family History Family Member Diagnosis Age At Onset Maternal Grandfather Cardiovascular Disease Maternal Grandfather Diabetes Maternal Grandmother Diabetes Maternal Grandmother Hypertension Father Kidney Disease Maternal Grandfather Lung Disease Immunizations Vaccine Date Status Comments Tdap completed Source: New Immunization Record Influenza, injectable, completed Source: New Immunization Record quadrivalent, preservative free, 3 yrs or older Payers Payer name Insurance type Covered alliance party ID Authorization(s) [facility] [id number] [facility] [id number] [facility] [id number] Social History Type Description Quantity Date Captured Alcohol Use Details No Caffeine Use Details Tobacco Use Status Never smoked tobacco Smoking Status Never smoker Vital Signs Date / Height Weight BMI Pulse Blood Temperature Respiratory Body Head BMI Time: Rate Pressure Rate Surface Circumference percentile Area 187.90 73 110/73 97.60 lbs /min mm[Hg] 11:11 AM Chief Complaint And Reason For Visit Most recent encounter only, dated '12/06/2017 11:00'. examination (chief complaint). Description: On 10/18/2017 she had a C/S (LT) of a 37 week3 day female (Indra) weighing 6# 7 oz. (2928g) at [facility] by Lloyd Bhatia DO. Apgars: 7/9. She [...] Radiology Order OB Detailed Complete Ultrasound Ordered ([id number]) Date Type Problem Goal Intervention Status Start Date Unknown. History Of Present Illness Encounter Date Complaint History Of Present Illness examination On 10/18/2017 she had a C/S (LT) of a 37 week 3 day female (Indra) weighing 6# 7 oz. (2928g) at [facility] by Lloyd Bhatia DO. Apgars: 7/9. She [...]
--- OUTSIDE RECORDS SUMMARY | 2018-01-08 19:13 | External Medical Summary | Continuity of Care Document ---
:1990 Author Organization [facility] Address [address] [place], [place] [id number] Phone Care Team Providers Name Role Phone [...] Team Description For Visit Members Bhavani Mejia [place]-1 Sobbing In Womens 9-201 [place]. Juliocesar ENG, 8 700 PO Box Medical 1522, Center [facility], [place], Suite [id number], 120, [place] Roberto, [place]: [place], [address], [place]. tel: [phone] Bhavani Mejia Iron deficiency [place]-1 Sobbing Referring In Womens anemia, 8-201 [place]. Provider: ebenezer FreedPosdebraa 8 700 Awa PO Box rtum Follow-Up, [facility], 1522, Routine Center [address] [place] [address], Suite Center [id number], 120, Lopez 120, [place] Roberto Mejia, tel: [place], [address], [id number]. [place]. tel: tel: [phone] Associates Roberto Anemia, [place]-0 Sobbing Referring In Womens unspecifiedAnemia 4-201 [place]. Provider: Juliocesar ENG, , 8 700 Awa PO Box unspecifiedPostpa Medical Cutler T, 1522, rtum Follow-Up, Center [address] [place] [address], Suite Center [id number], 120, Lopez 120, [place] Roberto Mejia, tel: [place], [address], [id number]. [place]. tel: tel: [phone] Bhavani Mejia Obesity, Apr-2 Sobbing Referring In Womens unspecified 3-201 [place]. Provider: Juliocesar ENG, 8 700 Awa PO Box Medical Cutler T, 1522, Center 700 [facility], Suite Center [id number], 120, Lopez 120, [place] Roberto Mejia, tel: [place], [address], [id number]. [place]. tel: tel: [phone] Associates Roberto Obesity, Mar-2 Sobbing Referring In Womens unspecified 6-201 [place]. Provider: Juliocesar ENG, 8 700 Awa PO Box Medical Cutler T, 1522, Center [address] [place] [address], Suite Center [id number], 120, Lopez 120, [place] Roberto Mejia, tel:+ [place], [address], [id number]. [place]. tel: tel: [phone] Bhavani Mejia Suprvsn of preg w Mar-0 Sobbing Referring In Womens history of 1-201 [place]. Provider: Juliocesar ENG infertility, 8 700 Awa PO Box second trimester Medical Cutler T, 1522, Center [address] [facility], Suite Center [id number], 120, Lopez 120, [place] Roberto Mejia, tel: [place], [address], [id number]. [place]. tel: tel: [phone] Bhavani Mejia Suprvsn of preg w Feb-0 Sobbing Referring In Womens history of 1- Lloyd. Provider: Juliocesar ENG infertility, 8 700 Awa PO Box second Medical Cutler T, 1522, trimesterVelament Center 700 [place], ous insertion of [facility], umbilical cord, Suite Center [id number], unsp trimester 120, Lopez 120, [place] Roberto Mejia, tel: [place], [address], [id number]. [place]. tel: tel: [phone] Bhavani Mejia Suprvsn of preg w Feb-0 Sobbing Referring In Womens Ultrasound history of 1- Lloyd. Provider: Juliocesar ENG infertility, 8 700 Awa PO Box second trimester Medical Cutler T, 1522, Center [address] [facility], Suite Center [id number], 120, Lopez 120, [place] Roberto Mejia, tel: [place], [address], [id number]. [place]. tel: tel: [phone] Bhavani Mejia Suprvsn of preg w [place]-0 Sobbing Referring In Womens history of 4-201 Lloyd. Provider: Juliocesar ENG infertility, 8 700 Awa PO Box second trimester Medical Cutler T, 1522, Center 700 [facility], Suite Center [id number], 120, Lopez 120, [place] Roberto Mejia, tel: [place], [address], [id number]. [place]. tel: tel: [phone] Associates Roberto Nov-0 Sobbing Referring In Womens 9-201 [place]. Provider: Juliocesar ENG, 7 700 Awa PO Box Medical Cutler T, 152, Center [address], [facility], Suite Center [id number], 120, Lopez 120, [place] Roberto Mejia, tel: [place], [address], [id number]. [place]. tel: tel: [phone] Associates Roberto Irregular Menses [place]-2 Cutler Referring In Womens 1-201 Awa. Provider: Juliocesar ENG, 7 700 Awa PO Box Medical Cutler T, 1521, Center [address], [facility], 120, Center [id number], Roberto, [facility] 120, [place] Roberto COLEMAN, tel:[phone] [place], , [place]. [id number]. tel: tel: [phone] Associates Roberto Irregular May-2 Cutler Referring In Womens MensesFemale 5-201 Awa. Provider: Juliocesar ENG, infertility 7 700 Awa PO Box associated with Medical Cutler T, 1521, anovulation Center [facility] Dr Kalpesh, [facility], 120, Center [id number], Roberto, [facility] 120, [place] Roberto COLEMAN, tel:[phone] [place], , [place]. [id number]. tel: tel: [phone] Associates Roberto Female May-2 Cutler Referring In Womens infertility, 2-201 Awa. Provider: Juliocesar ENG, unspecified 7 700 Awa PO Box Medical Cutler T, 152, Center [address], [facility], 120, Center [id number], Roberto, [facility] 120, [place] Roberto COLEMAN, tel:[phone] [place], , [place]. [id number]. tel: tel: [phone] Associates Roberto Abnormal finding May-0 Cutler In Womens of blood 8-201 Awa. Health [facility], chemistry, 7 700 PO Box unspecified Medical 1522, Center Dr Kalpesh, [facility] [place], 120, [id number], Roberto, [place], tel: [phone] , [place]. tel: [phone] Associates Roberto Female May-0 Cutler Referring In Womens infertility, 2-201 Awa. Provider: Health V[place]ASQUEZ, unspecifiedFemale 7 700 Awa PO Box infertility, Medical Cutler T, 1522, unspecified Center [address]pesh, [facility] [place], 120, [place] [id number], [place] [address], JARED, Roberto, tel: [phone] [place], , [place]. [id number]. tel: tel: [phone] Family History Family Member Diagnosis Age At Onset Maternal Grandfather Cardiovascular Disease Maternal Grandfather Diabetes Maternal Grandmother Diabetes Maternal Grandmother Hypertension Father Kidney Disease Maternal Grandfather Lung Disease Immunizations Vaccine Date Status Comments Tdap completed Source: New Immunization Record Influenza, injectable, completed Source: New Immunization Record quadrivalent, preservative free, 3 yrs or older Payers Payer name Insurance type Covered green party ID Authorization(s) [facility] [id number] [facility] [id number] [facility] [id number] Social History Type Description Quantity Date Captured [...] Radiology Order OB Detailed Complete Ultrasound Ordered ([id number]) Date Type Problem Goal Intervention Status Start [...]
--- OUTSIDE RECORDS SUMMARY | 2018-01-08 19:13 | External Medical Summary | Continuity of Care Document ---
:1990 Author Organization [facility] Address [address] [place], [place] [id number] Phone Care Team Providers Name Role Phone Saundra Shital Unavailable Unavailable Allergies, Adverse Reactions, Alerts Substance Reaction Severity Status Sulfa (Sulfonamide Antibiotics) Unknown Active codeine Unknown Active Medications Medication Instructions Dosage Effective Dates Status Comments (start - stop) Vitamin take 1 tablet by Not Available - Active tablet oral route every day Aspir-81 81 mg take 1 tablet by 81 MG - Active tablet,delayed oral route every release day Problems Condition Effective Dates (start - stop) Clinical Status Obesity, unspecified - Suprvsn of preg w history of - infertility, third trimester Supervision of other high risk - pregnancies, third trimester 28 weeks gestation of - Female infertility, unspecified Female infertility, unspecified Suprvsn of preg w history of - infertility, second trimester Supervision of other high risk - pregnancies, second trimester Velamentous insertion of umbilical - cord, unsp trimester Obesity complicating , second - trimester Irregular Menses Female infertility associated with anovulation [...] third trimester 30 weeks gestation of - Supervision of other high risk - pregnancies, third trimester Velamentous insertion of umbilical - cord, third trimester Obesity complicating , third - trimester 28 weeks gestation of - Abnormal finding of blood chemistry, unspecified Asthma Active Depression Active Procedures Procedure Date Immuniz admnin, 1 vac, sngl/combo 19 Yrs + TDAP VACCINE >7 IM OB Visit No Charge Glucose test Hemoglobin count, colorimetric Hematocrit blood count Venpnctr fngr/heel/ear stick routne Results Test Name Date and Time Measure Units Reference Range Abnormal Flag Comments Panel Description: Glucose [Mass/volume] in Serum or Plasma --1 hour post 50 g glucose PO Gestational Diabetes 130 mg/dL 65-139 According to ADA, a glucose Screen 16:43:00 threshold of >139 mg/dL after 50-gramload identifies approximately 80% of women with gestationaldiabetes mellitus, while the sensitivity is further increased toapproximately 90% by a threshold of >129 mg/dL. Panel Description: Hemoglobin [Mass/volume] in Blood Hemoglobin 16:43:00 8.5 g/dL 11.1-15.9 L Panel Description: Hematocrit [Volume Fraction] of Blood by Automated count Hematocrit 16:43:00 25.4 % 34.0-46.6 L Advance Directives Directive Yes / No Effective Date File Name Unknown Encounters Encounter Practice Location Reason(s) Diagnoses Date Provider Care Team Description For Visit Members [facility] Harrisn of preg w Aug- Sobbing Referring In Womens history of [place]. Provider: Juliocesar ENG, infertility, 8 700 [address] third Medical [place] T, 152, trimesterSupervis Center [address], ion of other [address], [facility], risk pregnancies, Suite Center [id number], third 120, [place] 120, [place] trimesterVelament Roberto Mejia, tel:+ ous insertion of JARED JARED, umbilical cord, [address], [id number]. third [id number] [place]. tel:+ weeks gestation tel: [phone] of [phone] [facility] Obesity, Mar-2 Sobbing Referring In Womens unspecifiedSuprvs [place]. Provider: Juliocesar ENG n of preg w 8 700 Awa PO Box history of Medical [place] T, 152, infertility, Center [address], [address], [facility], trimesterSupervis Suite Center [id number], ion of other high 120, [place] 120, [place] risk pregnancies, Roberto Mejia, tel:+ third [id number] JARED JARED, weeks gestation 23039, [id number]. of [place]. tel:+ tel: [phone] [facility] Supervision of Jul-2 Sobbing Referring In Womens Ultrasound other high risk [place]. Provider: Health PA, pregnancies, 8 700 Awa PO Box third Medical Cutler T, 1522, trimesterVelament Center [address], ous insertion of Drive, Medical [place], umbilical cord, Suite Center , third 120, [place] 120, [place] trimesterObesity Roberto Mejia, tel:+2 complicating [place], , third [address], [id number]. [id number] weeks [place]. tel: gestation of tel: [phone] [facility] Suprvsn of preg w Mar-0 Sobbing Referring In Womens history of - [place]. Provider: Health PA, infertility, 8 700 Awa PO Box second Medical Cutler T, 152, trimesterSupervis Center [address], ion of other [address], Medical [place], risk pregnancies, Suite Center , second 120, [place] 120, [place] trimesterVelament Roberto Mejia, tel: ous insertion of [place], umbilical cord, [address], [id number]. second [place]. tel: trimesterObesity tel: [phone] complicating [id number] , second trimester [facility] Suprvsn of preg w Feb-0 Sobbing Referring In Womens history of - [place]. Provider: Juliocesar ENG, infertility, 8 700 Awa PO Box second Medical [place] T, 152, trimesterSupervis Center [address], ion of other [address], Medical [place], risk pregnancies, Suite Center [id number], second 120, [place] 120, [place] trimesterVelament Roberto Mejia, tel:2 ous insertion of [place], umbilical cord, [address], [id number]. unsp [place]. tel: trimesterObesity tel: [phone] complicating [id number] , second trimester [facility] Suprvsn of preg w Feb-0 Sobbing Referring In Womens Ultrasound history of - [place]. Provider: Juliocesar ENG, infertility, 8 700 Awa PO Box second Medical [place] T, 1522, trimesterSupervis Center [address], ion of other [address], Medical [place], risk pregnancies, Suite Center [id number], second 120, [place] 120, [place] trimesterObesity Roberto Mejia, tel:+ complicating [place], [place], , second [address], [id number]. [id number] weeks [place]. tel: gestation of tel: [phone] [facility] Suprvsn of preg w [place]-0 Sobbing Referring In Womens history of 4-201 [place]. Provider: Health PA, infertility, 8 700 Awa PO Box second Medical Cutler T, 1522, trimesterSupervis Center [address], ion of other [address], Medical [place], risk pregnancies, Suite Center [id number], second 120, [place] 120, [place] trimesterObesity Roberto Mejia, tel: complicating [place], [place], , second [address], [id number]. weeks [place]. tel: gestation of tel: [phone] [facility] Suprvsn of preg w Dec-0 Sobbing Referring In Womens history of 7-201 [place]. Provider: Health PA, infertility, 7 700 Awa PO Box first Medical Uctler T, 1522, trimesterSupervis Center [address], [facility] of other high Drive, Medical [place], risk pregnancies, Suite Center [id number], first 120, [place] 120, [place] trimesterObesity Roberto Mejia, tel:+2 complicating [place], [place], , first [address], [id number]. [id number] weeks [place]. tel: gestation of tel: [phone] [facility] Suprvsn of preg w Nov-2 Sobbing Referring In Womens history of 0-201 [place]. Provider: Health PA, infertility, 7 700 Awa PO Box first Medical Cutler T, 1522, trimesterSupervis Center [address], [facility] of other high Drive, Medical [place], risk pregnancies, Suite Center [id number], first [id number] 120, [place] 120, [place] weeks gestation Roberto Mejia, tel:2 [place], [address], [id number]. [place]. tel: tel: [phone] [facility] Suprvsn of preg w Nov-0 Sobbing Referring In Womens history of 9-201 [place]. Provider: Health VELASQUEZ, infertility, 7 700 Awa PO Box first Medical Cutler T, 1521, trimesterSupervis Center [facility] [place], james of other high Drive, Medical [place], risk pregnancies, Suite Center [id number], first 120, [place] 120, [place] trimesterObesity Roberto Mejia, tel:+2 complicating [place], [place], , first [address], [id number]. [id number] weeks [place]. tel: gestation of tel: [phone] [facility] Irregular Menses [place]-2 Cutler Referring In Womens -201 Awa. Provider: Juliocesar ENG, 7 700 Awa PO Box Medical Omayra T, 1521, Center [address], [facility], 120, Center [id number], [facility], Roberto COLEMAN, tel:[phone] [place], , [place]. [id number]. tel: tel: [phone] Bhavani Mejia Irregular September-2 Cutler Referring In Womens MensesFemale 5-201 Awa. Provider: Juliocesar ENG, infertility 7 700 Awa PO Box associated with Medical Cutler T, 1521, anovulation Center [address], [facility], 120, Center [id number], [facility] 120, [place] Roberto COLEMAN, tel:[phone] [place], , [place]. [id number]. tel: tel:[phone] Bhavani Mejia Female May-2 Cutler Referring In Womens infertility, 2-201 Awa. Provider: Juliocesar ENG, unspecified 7 700 Awa PO Box Medical Omayra T, 1521, Center [address], [facility], 120, Center [id number], Roberto, [facility] 120, [place] Roberto COLEMAN, tel:[phone] [facility] , [place]. [id number]. tel: tel:[phone] Bhavani Mejia Abnormal finding May-0 Cutler In Womens of blood 8-201 Awa. Health PA, chemistry, 7 700 PO Box unspecified Medical 1522, Center Dr Kalpesh, [facility] [place], 120, [id number], [place], [place], tel: [phone] , [place]. tel: [phone] Bhavani Mejia Female May-0 Cutler Referring In Womens infertility, 2-201 Awa. Provider: Health VELASQUEZ, unspecifiedFemale 7 700 Awa PO Box infertility, Medical Cutler T, 1522, unspecified Center [address]esh, [facility] [place], 120, [place] [id number], Roberto [place] [address], JARED, Roberto, tel: [phone] [place], , [place]. [id number]. tel: tel: [phone] Family History Family Member Diagnosis Age At Onset Maternal Grandfather Cardiovascular Disease Maternal Grandfather Diabetes Maternal Grandmother Diabetes Maternal Grandmother Hypertension Father Kidney Disease Maternal Grandfather Lung Disease Immunizations Vaccine Date Status Comments Tdap completed Source: New Immunization Record Influenza, injectable, completed Source: New Immunization Record quadrivalent, preservative free, 3 yrs or older Payers Payer name Insurance type Covered libertarian ID Authorization(s) [facility] [id number] [facility] [id number] [facility] [id number] Social History Type Description Quantity Date Captured Alcohol Use Details No Caffeine Use Details Unknown Tobacco Use Status Unknown Smoking Status Never smoker Vital Signs Date / Height Weight BMI Pulse Blood Temperature Respiratory Body Head BMI Time: Rate Pressure Rate Surface Circumference percentile Area 210.10 36.0 131/80 -2017 lbs 6 mm[Hg] 4:24 kg/m PM eter (2) 210.10 36.0 -2018 lbs 6 4:24 kg/m PM eter (2) Chief Complaint And Reason For Visit Unknown Chief Complaint And Reason For Visit Reason For Referral Reason For Referral Unknown Plan Of Care Date Type Action Status Goal Lifestyle education regarding completed diet Appointment Christy Luna BOOKED Appointment Christy Luna BOOKED Future Order: Radiology Order OB Detailed Complete Ultrasound Ordered ([id number]) Future Order: Radiology Order Ultrasound OB Follow-up ([id number]) Ordered Date Type Problem Goal Intervention Status Start [...]
--- OUTSIDE RECORDS SUMMARY | 2018-01-08 19:13 | External Medical Summary | Continuity of Care Document ---
:1990 Author Organization [facility] Address [address] [place], [place] [id number] Phone Care Team Providers Name Role Phone Shital Arguello DO Unavailable Unavailable Allergies, Adverse Reactions, Alerts Substance Reaction Severity Status Sulfa (Sulfonamide Antibiotics) Unknown Active codeine Unknown Active Medications Medication Instructions Dosage Effective Dates Status Comments (start - stop) Vitamin take 1 tablet by Not Available - Active tablet oral route every day clomiphene take 1 tablet by - No Longer citrate 50 mg oral route daily Active tablet on cycle days 5 through 9. Problems Condition Effective Dates (start - stop) Clinical Status Female infertility, unspecified Female infertility, unspecified Irregular Menses Female infertility associated with anovulation Irregular Menses - Abnormal finding of blood chemistry, unspecified Female infertility, unspecified - Asthma Active Depression Active Procedures Procedure Date Unknown Results Test Name Date and Time Measure Units Reference Range Abnormal Flag Comments Unknown Advance Directives Directive Yes / No Effective Date File Name Unknown Encounters Encounter Practice Location Reason(s) Diagnoses Date Provider Care Team Description For Visit Members Bhavani Mejia [facility] In Womens Jeri. Health VELASQUEZ, 7 700 PO Box Medical [address], [place] [address] Kalpesh, [facility], 120, [id number], [facility], tel:[phone] 174725 , . tel: [phone] Bhavani Mejia Irregular Menses Cutler Referring In Womens Awa. Provider: Health VELASQUEZ, 7 700 Awa PO Box Medical [address]ler T, 1522, [place] [address] [address] Kalpesh, [facility], 120, [place] [id number], [facility], [place] JARED, Roberto, tel:[phone] [place], , [place]. [id number]. tel: tel:[phone] [facility] Irregular May-2 Cutler Referring In Womens MensesFemale 5-201 Awa. Provider: Health VELASQUEZ, infertility 7 700 Awa PO Box associated with Medical Cutler T, 152, anovulation Center [facility] Dr Kalpesh, [facility], 120, [place] [id number], [facility], JARED, Roberto, tel:[phone] [place], , [place]. [id number]. tel: tel: [phone] [facility] Roberto Female May-2 Cutlre Referring In Womens infertility, 2-201 Awa. Provider: Health VELASQUEZ, unspecified 7 700 Awa PO Box Medical [address] T, 152, Center [address], [facility], 120, [place] [id number], [facility] 120, [place] Roberto COLEMAN, tel:[phone] [place], , [place]. [id number]. tel: tel:[phone] [facility] Abnormal finding May-0 Cutler In Womens of blood 8-201 Awa. Health VELASQUEZ, chemistry, 7 700 PO Box unspecified Medical [address], [address] Kalpesh, [facility], 120, [id number], Mejia, JARED, tel:[phone] , [place]. tel: [phone] [facility] Female May-0 Cutler Referring In Womens infertility, 2-201 Awa. Provider: Health VELASQUEZ, unspecifiedFemale 7 700 Awa PO Box infertility, Medical Cutler T, 152, unspecified Center [address], [facility] [place], 120, [place] [id number], [facility] 120, [place] Roberto COLEMAN, tel:[phone] [facility] , [place]. [id number]. tel: tel:[phone] Family History Family Member Diagnosis Age At Onset Maternal Grandfather Cardiovascular Disease Maternal Grandfather Diabetes Maternal Grandmother Diabetes Maternal Grandmother Hypertension Father Kidney Disease Maternal Grandfather Lung Disease Immunizations Vaccine Date Status Comments Unknown Payers Payer name Insurance type Covered constitution party ID Authorization(s) [employer] [place] [id number] Social History Type Description Quantity Date Captured Unknown Vital Signs Date / Height Weight BMI Pulse Blood Temperature Respiratory Body Head BMI Time: Rate Pressure Rate Surface Circumference percentile Area Unknown Chief Complaint And Reason For Visit Unknown Chief Complaint And Reason For Visit Reason For Referral Reason For Referral Unknown Plan Of Care Date Type Action Status Goal Lifestyle education regarding diet completed Date Type Problem Goal Intervention Status Start [...] to exercise Related to Body mass index 34.0- 34.9 Lifestyle education regarding diet Related to Body mass index 34.0-34.9
--- OUTSIDE RECORDS SUMMARY | 2018-01-08 19:13 | External Medical Summary | Continuity of Care Document ---
:1990 Author Organization [facility] Address [address] [place], [place] [phone] Phone Care Team Providers Name Role Phone Saundra Leigh WRIGHTcy Unavailable Unavailable Allergies, Adverse Reactions, Alerts Substance [...] Effective Dates (start - stop) Clinical Status Iron deficiency anemia, unspecified Follow-Up, Routine Female infertility, unspecified Female infertility, unspecified Obesity, unspecified - Anemia, unspecified Anemia, unspecified Follow-Up, Routine - [...] Active Depression Active Active Procedures Procedure Date Visit No-Charge Automated hemogram (CBC) Venpnctr fngr/heel/ear stick routne Results Test Name Date and Time Measure Units Reference Range Abnormal Flag Comments Panel Description: CBC With Differential/Platelet WBC 11:31:00 5.3 x10E3/uL 3.4-10.8 RBC 11:31:00 3.29 x10E6/uL 3.77-5.28 L Hemoglobin 11:31:00 9.9 g/dL 11.1-15.9 L Hematocrit 11:31:00 31.1 % 34.0-46.6 L MCV 11:31:00 95 fL 79-97 MCH 11:31:00 30.1 pg 26.6-33.0 MCHC 11:31:00 31.8 g/dL 31.5-35.7 RDW 11:31:00 16.8 % 12.3-15.4 H Platelets 11:31:00 278 x10E3/uL 150-379 Neutrophils 11:31:00 66 % Not Estab. Lymphs 11:31:00 28 % Not Estab. Monocytes 11:31:00 4 % Not Estab. Eos 11:31:00 2 % Not Estab. Basos 11:31:00 0 % Not Estab. Neutrophils (Absolute) 11:31:00 3.5 x10E3/uL 1.4-7.0 Lymphs (Absolute) 11:31:00 1.5 x10E3/uL 0.7-3.1 Monocytes(Absolute) 11:31:00 0.2 x10E3/uL 0.1-0.9 Eos (Absolute) 11:31:00 0.1 x10E3/uL 0.0-0.4 Baso (Absolute) 11:31:00 0.0 x10E3/uL 0.0-0.2 Immature Granulocytes 11:31:00 0 % Not Estab. Immature Grans (Abs) 11:31:00 0.0 x10E3/uL 0.0-0.1 Advance Directives Directive Yes / No Effective Date File Name Unknown Encounters Encounter Practice Location Reason(s) Diagnoses Date Provider Care Team Description For Visit Members Bhavani Mejia post-operati Iron deficiency Dakota-1 Sobbing Referring In Womens ve anemia, Lillie. Provider: Juliocesar ENG, examination unspecifiedPost 8 700 Awa PO Box (chief Medical Cutler T, 1522, complaint) Follow-Up, Center [address] [place] [address], [facility], Suite Center [id number], 120, [place] 120, [place] Roberto Mejia, tel:+ [place], [address], [id number]. [place]. tel: tel: [phone] Bhavani Mejia Anemia, Dakota-0 Sobbing Referring In Womens unspecifiedAnem Lillie. Provider: aureliano Freed, 8 700 Awa PO Box unspecifiedPost Medical Cutler T, 1522, Center 700 [place], Follow-Up, [facility], Routine Suite Center [id number], 120, [place] 120, [place] Roberto Mejia, tel: [place], [address], [id number]. [place]. tel: tel: [phone] Associates [facility] Obesity, Apr-2 Sobbing Referring In Womens unspecified Lillie. Provider: Juliocesar ENG, 8 700 Awa PO Box Medical Cutler T, 1522, Center 700 [facility], Suite Center [id number], 120, [place] 120, [place] Roberto Mejia, tel: [place], [address], [id number]. [place]. tel: tel: [phone] Associates [facility] Obesity, Mar-2 Sobbing Referring In Womens unspecified Lillie. Provider: Juliocesar ENG, 8 700 Awa PO Box Medical Cutler T, 1522, Center 700 [facility], Suite Center [id number], 120, [place] 120, [place] Roberto Mejia, tel: [place], [address], [id number]. [place]. tel: tel: [phone] Bhavani Mejia Suprvsn of preg Mar-0 Sobbing Referring In Womens w history of Lloyd. Provider: Juliocesar ENG infertility, 8 700 Awa PO Box [facility] [place] T, 152, trimester Center 700 [facility], Suite Center [id number], 120, [place] 120, [place] Roberto Mejia, tel: [place], [address], [id number]. [place]. tel: tel: [phone] Bhavani Mejia Suprvsn of preg Feb-0 Sobbing Referring In Womens w history of Lloyd. Provider: Juliocesar ENG, infertility, 8 700 [facility]wa [facility], trimesterVelame Center 700 [facility], of umbilical Suite Center [id number], cord, unsp 120, [place] 120, [place] trimester Roberto Mejia, tel: [place], [address], [id number]. [place]. tel: tel: [phone] Bhavani Mejia Suprvsn of preg Feb-0 Sobbing Referring In Womens Ultrasound w history of Lloyd. Provider: Juliocesar ENG infertility, 8 700 [facility]wa [facility], trimester Center 700 [facility], Suite Center [id number], 120, [place] 120, [place] Roberto Mejia, tel: [place], [address], [id number]. [place]. tel: tel: [phone] Bhavani Mejia Suprvsn of preg [place]-0 Sobbing Referring In Womens w history of - Lloyd. Provider: Juliocesar ENG infertility, 8 700 Awa PO Box [facility] [place] T, 152, trimester Center 700 [facility], Suite Center [id number], 120, [place] 120, [place] Roberto Mejia, tel: [place], [address], [id number]. [place]. tel:[phone] tel: [phone] Associates [facility] Nov-0 Sobbing Referring In Womens 9-201 Lloyd. Provider: Juliocesar ENG, 7 700 Awa PO Box Medical [place] T, 1522, Center [facility], [facility], Suite Center [id number], 120, [place] 120, [place] Roberto Mejia, tel:+ [place], [address], [id number]. [place]. tel: tel: [phone] Associates [facility] Irregular Dakota-2 Cutler Referring In Womens Menses 1-201 Awa. Provider: Juliocesar ENG, 7 700 Awa PO Box Medical Cutler T, 1522, Center [address], [facility], 120, Center [id number], Roberto, [email or web address]] 120, [place] Roberto COLEMAN, tel:+ [phone] [place], , [place]. [id number]. tel: tel: [phone] Associates [facility] Irregular May-2 Cutler Referring In Womens MensesFemale 5-201 Awa. Provider: Juliocesar ENG, infertility 7 700 Awa PO Box associated with Medical Cutler T, 152, anovulation Center [address], [facility], 120, Center [id number], Roberto, [facility] [[email or web address]] 120, [place] Roberto COLEMAN, tel:+ [phone] [place], , [place]. [id number]. tel: tel: [phone] Bhavani Mejia Female May-2 Cutler Referring In Womens infertility, 2-201 Awa. Provider: Julioceasr ENG, unspecified 7 700 Awa PO Box Medical [place] T, 1522, Center [address], [facility], 120, Center [id number], Roberto, [facility] [[email or web address]] 120, [place] Roberto COLEMAN, tel: [phone] [place], , [place]. [id number]. tel: tel:[phone] Associates [facility] Abnormal May-0 Cutler In Womens finding of 8-201 Awa. [facility], blood 7 700 PO Box chemistry, Medical 1522, unspecified Center Dr Kalpesh, [facility] [[email or web address]] [place], 120, [id number], Mejia, [facility], tel: [phone] , [place]. tel: [phone] Bhavani Mejia Female May-0 Cutler Referring In Womens infertility, 2-201 Awa. Provider: Health VELASQUEZ, unspecifiedFema 7 700 Waa PO Box le infertility, Medical Cutler T, 1522, unspecified Center [address] Dr Kalpesh, [facility] [place], 120, [place] [id number], [facility] 120, [facility], Roberto, tel: [phone] [place], , [place]. [id number]. tel: tel: [phone] Family History Family Member Diagnosis Age At Onset Maternal Grandfather Cardiovascular Disease Maternal Grandfather Diabetes Maternal Grandmother Diabetes Maternal Grandmother Hypertension Father Kidney Disease Maternal Grandfather Lung Disease Immunizations Vaccine Date Status Comments Tdap completed Source: New Immunization Record Influenza, injectable, completed Source: New Immunization Record quadrivalent, preservative free, 3 yrs or older Payers Payer name Insurance type Covered constitution party ID Authorization(s) [facility] [id number] [facility] [id number] [facility] [id number] Social History Type Description Quantity Date Captured Alcohol Use Details No Caffeine Use Details Tobacco Use Status Never smoked tobacco Smoking Status Never smoker Vital Signs Date / Height Weight BMI Pulse Blood Temperature Respiratory Body Head BMI Time: Rate Pressure Rate Surface Circumference percentile Area 64.00 190.40 32.6 77 129/80 2018 in lbs 8 /min mm[Hg] 11:07 kg/m AM eter (2) Chief Complaint And Reason For Visit Most recent encounter only, dated '11/08/2017 11:00'. post-operative examination (chief complaint). Description: She had a Labor Induction (Simon Bulb) (Pitocin) on 10/19/2017. She is 2 Weeks 6 Days post-op. She describes her bleeding amount as light. Patient denies chills, constipation, diarrhea, distention, dysuria, edema, fever, incision drainage, incision pain and nausea. Her incision is healing well. Taking Iron inconsistanly Reason For Referral Reason For Referral Unknown Plan Of Care Date Type Action Status Goal Lifestyle education regarding completed diet Goal Lifestyle education regarding completed diet Goal Lifestyle education regarding completed diet Appointment Christy Luna BOOKED Future Order: Radiology Order OB Detailed Complete Ultrasound Ordered ([id number]) Date Type Problem Goal Intervention Status Start Date Unknown. History Of Present Illness Encounter Date Complaint History Of Present Illness post-operative examination She had a Labor Induction (Simon Bulb) (Pitocin) on 10/19/2017. She is 2 Weeks 6 Days post-op. She describes her bleeding amount as light. Patient denies chills, constipation, diarrhea, distention, dysuria, edema, fever, incision drainage, incision pain and nausea. Her incision is healing well. Taking Iron inconsistanly Functional Status Encounter Date Functional Assessment Cognitive [...]
--- OUTSIDE RECORDS SUMMARY | 2018-01-08 19:13 | External Medical Summary | Continuity of Care Document ---
:1990 Author Organization [facility] Address [address] [place], [place] [phone] Phone Care Team Providers Name Role Phone [...] Active Depression Active Active Procedures Procedure Date delivery only Results Test Name Date and Time Measure Units Reference Range Abnormal Flag Comments Unknown Advance Directives Directive Yes / No Effective Date File Name Unknown Encounters Encounter Practice Location Reason(s) Diagnoses Date Provider Care Team Description For Visit Members Bhavani Mejia Iron deficiency Dakota-1 Sobbing Referring In Womens anemia, 8 Falconer. Provider: Marques Freed 8 700 Awa PO [place] Follow-Up, [facility], 152, Routine Center 700 [facility], Suite Center [id number], 120, [place] 120, [place] Roberto Mejia, tel: [place], [address], [id number]. [place]. tel: tel: [phone] Bhavani Mejia Anemia, Dakota-0 Sobbing Referring In Womens unspecifiedAnemia 4 Falconer. Provider: Juliocesar ENG, , 8 700 Awa PO Box unspecifiedPostpa [facility], 152, rtum Follow-Up, Center 700 [facility], Suite Center , 120, [place] 120, [place] Roberto Mejia, tel: [place], [address], [id number]. [place]. tel: tel: [phone] Bhavani Mejia September-2 Boni Referring In Womens [place]. 700 Provider: Juliocesar ENG, [facility], 152, , [facility] 700 [place], 120, [facility] [id number], [place], [place] 120, [place] [id number] Roberto, tel: , . [place], tel: [phone]. [id number] tel:[phone] Bhavani Mejia Obesity, Apr-2 Sobbing Referring In Womens unspecified 3-201 Falconer. Provider: Juliocesar ENG, 8 700 Awa PO [facility], 152, Center [address] [place] [address], Suite Center [id number], 120, [place] 120, [place] Roberto Mejia, tel: [place], [address], [id number]. [place]. tel: tel: [phone] Bhavani Mejia Obesity, Mar-2 Sobbing Referring In Womens unspecified 6-201 Lloyd. Provider: Juliocesar ENG, 8 700 Awa PO Box Medical Cutler T, 1522, Center 700 [employer], [facility], Suite Center [id number], 120, [place] 120, [place] Roberto Mejia, tel: [place], [address], [id number]. [place]. tel: tel: [phone] Bhavani Mejia Suprvsn of preg w Mar-0 Sobbing Referring In Womens history of - Lloyd. Provider: Juliocesar ENG, infertility, 8 700 Awa PO Box second trimester Medical Cutler T, 1522, Center 700 [place], [facility], Suite Center [id number], 120, [place] 120, [place] Roberto Mejia, tel: [place], [address], [id number]. [place]. tel: tel: [phone] Bhavani Mejia Suprvsn of preg w Feb-0 Sobbing Referring In Womens history of - Lloyd. Provider: Juliocesar ENG, infertility, 8 700 Awa PO Box second Medical Cutler T, 1522, trimesterVelament Center 700 [place], ous insertion of [facility], umbilical cord, Suite Center [id number], unsp trimester 120, [place] 120, [place] Roberto Mejia, tel: [place], [address], [id number]. [place]. tel: tel: [phone] Bhavani Mejia Suprvsn of preg w Feb-0 Sobbing Referring In Womens Ultrasound history of - Lloyd. Provider: Juliocesar ENG, infertility, 8 700 Awa PO Box second trimester Medical Cutler T, 1522, Center 700 [facility], Suite Center [id number], 120, [place] 120, [place] Roberto Mejia, tel: [place], [address], [id number]. [place]. tel: tel: [phone] Bhavani Mejia Suprvsn of preg w [place]-0 Sobbing Referring In Womens history of 4- Lloyd. Provider: Juliocesar ENG, infertility, 8 700 Awa PO Box second trimester Medical Cutler T, 1522, Center 700 [facility], Suite Center [id number], 120, [place] 120, [place] Roberto Mejia, tel: [place], [address], [id number]. [place]. tel: tel: [phone] Bhavani Mejia Nov-0 Sobbing Referring In Womens 9-201 Lloyd. Provider: Juliocesar ENG, 7 700 Awa PO Box Medical Cutler T, 152, Center 700 [facility], Suite Center [id number], 120, [place] 120, [place] Roberto Mejia, tel:+ [place], [address], [id number]. [place]. tel: tel: [phone] Bhavani Mejia Irregular Menses [place]-2 Cutler Referring In Womens 1-201 Awa. Provider: Juliocesar ENG, 7 700 Awa PO Box Medical Cutler T, 152, Center [facility] Dr Kalpesh, [facility], 120, Center [id number], Roberto, [facility] 120, [place] Roberto COLEMAN, tel:[phone] [place], , [place]. [id number]. tel: tel: [phone] Bhavani Mejia Irregular May-2 Cutler Referring In Womens MensesFemale 5-201 Awa. Provider: Juliocesar ENG, infertility 7 700 Awa PO Box associated with Medical Cutler T, 152, anovulation Center [facility] Dr Kalpesh, [facility], 120, Center [id number], Roberto, [facility] 120, [place] Roberto COLEMAN, tel: [phone] [place], , [place]. [id number]. tel: tel: [phone] Bhavani Mejia Female May-2 Cutler Referring In Womens infertility, 2-201 Awa. Provider: Juliocesar ENG, unspecified 7 700 Awa PO Box Medical Cutler T, 1522, Center [address], [facility], 120, Center [id number], Roberto, [facility] 120, [place] Roberto COLEMAN, tel:+ [phone] [place], , [place]. [id number]. tel: tel:[phone] Associates Roberto Abnormal finding May-0 Cutler In Womens of blood 8-201 Awa. Health [facility], chemistry, 7 700 PO Box unspecified Medical 1522, Center Dr Kalpesh, [facility] [place], 120, [id number], Mejia, [facility], tel:[phone] , . tel: [phone] Associates Roberto Female May-0 Cutler Referring In Womens infertility, 2-201 Awa. Provider: Health [place], unspecifiedFemale 7 700 Awa PO Box infertility, Medical Cutler T, 1522, unspecified Center [facility] Dr Kalpesh, [facility], 120, [place] [id number], [place] [address], Roberto COLEMAN, tel:+ [phone] [place], , . [id number]. tel: tel:[phone] Family History Family Member Diagnosis Age At Onset Maternal Grandfather Cardiovascular Disease Maternal Grandfather Diabetes Maternal Grandmother Diabetes Maternal Grandmother Hypertension Father Kidney Disease Maternal Grandfather Lung Disease Immunizations Vaccine Date Status Comments Tdap completed Source: New Immunization Record Influenza, injectable, completed Source: New Immunization Record quadrivalent, preservative free, 3 yrs or older Payers Payer name Insurance type Covered constitution party ID Authorization(s) [facility] [id number] [facility] [id number] [facility] [id number] Social History Type Description Quantity Date Captured [...] regarding completed diet Appointment Christy Luna BOOKED Feb-01-2018 Future Order: Radiology Order OB Detailed Complete Ultrasound Ordered ([id number]) Date Type Problem Goal Intervention Status Start [...]
--- OUTSIDE RECORDS SUMMARY | 2018-01-08 19:13 | External Medical Summary | Continuity of Care Document ---
:1990 Author Organization [facility] Address [address] [place], [place] [id number] Phone Care Team Providers Name Role Phone [...] Status Female infertility, unspecified Female infertility, unspecified Suprvsn of preg w history of - infertility, second trimester Supervision of other high risk - pregnancies, second trimester Velamentous insertion of umbilical - cord, unsp trimester Obesity complicating , second - trimester Obesity, unspecified - Suprvsn of preg [...] third trimester 33 weeks gestation of - Supervision of other high risk - pregnancies, third trimester Velamentous insertion of umbilical - cord, third trimester Obesity complicating , third - trimester 28 weeks gestation of - Gestational htn w/o significant - proteinuria, third [...] Care Team Description [facility] September-0 Sobbing Referring In Womens w/o significant 1-201 Lloyd. Provider: Juliocesar ENG, proteinuria, 8 700 Awa PO Box third trimester Medical Cutler T, 152, Center 700 [facility], Suite Center [id number], 120, Lopez 120, [place] Roberto Mejia, tel: [place], [address], [id number]. [place]. tel: tel: [phone] Associates Roberto Harrisn of preg w Apr-3 Sobbing Referring In Womens history of 0-201 Lloyd. Provider: Juliocesar ENG, infertility, 8 700 Awa PO Box third Medical Cutler T, 152, trimesterSupervis Center [address] [place] [address], [facility], risk pregnancies, Suite Center [id number], third 120, Lopez 120, [place] trimesterGestatio Roberto Mejia, tel: nal htn w/[place], significant [address], [id number]. proteinuria, [place]. tel: third [id number] tel: [phone] weeks gestation [id number] of Associates Roberto Obesity, Aug-2 Sobbing Referring In Womens unspecifiedSuprvs 3-201 Lloyd. Provider: Juliocesar ENG, n of preg w 8 700 Awa PO Box history of Medical Cutler T, 152, infertility, Center 700 [place], [facility], trimesterSupervis Suite Center [id number], ion of [facility] 120, Lopez 120, [place] risk pregnancies, Roberto Mejia, tel: [place], trimesterVelament [address], [id number]. ous insertion of [place]. tel: umbilical cord, tel: [phone] third trimester [phone] Associates Roberto Velamentous Apr-2 Sobbing Referring In Womens Ultrasound insertion of -201 Lloyd. Provider: Juliocesar ENG, umbilical cord, 8 700 Awa PO Box the medical center Medical Cutler T, 152, trimesterObesity Center [address] [place] [address], [facility] [place], , third Suite Center [id number], [id number] weeks 120, Lopez 120, [place] gestation of Roberto Mejia, tel: [place], 114, [id number]. [place]. tel: tel: [phone] Bhavani Mejia Apr-1 Sobbing In Womens - Lloyd. Health VELASQUEZ, 8 700 PO [facility] 152, [place], [place], Suite , 120, [place] Roberto, [place]: [place], [address], [place]. tel: [phone] Associates Roberto Suprvsn of preg w Apr-0 Sobbing Referring In Womens history of Lloyd. Provider: Juliocesar ENG, infertility, 8 700 Awa PO Box the medical center Medical Cutler T, 1521, trimesterSupervis Center [address] [place] [address], ion of other high [facility], [facility] [place], risk pregnancies, Suite Center [id number], third 120, Lopez 120, [place] trimesterVelament Roberto Mejia, tel: ous insertion of [place], umbilical cord, [address], [id number]. third [place]. tel: weeks gestation tel: [phone] of [phone] Associates Roberto Obesity, Mar-2 Sobbing Referring In Womens unspecifiedSuprvs 6- Lloyd. Provider: Juliocesar ENG, n of preg w 8 700 Awa PO Box history of Medical Cutler T, 152, infertility, Center [address] [place] [address], [facility], [facility] [place], trimesterSupervis Suite Center [id number], ion of other [facility] 120, Lopez 120, [place] risk pregnancies, Roberto Mejia, tel: third [id number] [place], [place], weeks gestation [address], [id number]. of [place]. tel: tel: [phone] Bhavani Mejia Supervision of Jul-2 Sobbing Referring In Womens Ultrasound other high risk 6-201 Lloyd. Provider: Health PA, pregnancies, 8 700 Awa PO Box third Medical Cutler T, 1522, trimesterVelament Center 700 [place], ous insertion of Drive, Medical [place], umbilical cord, Suite Center [id number], third 120, Lopez 120, [place] trimesterObesity Roberto Mejia, tel: complicating [place], [place], , third [address], [id number]. weeks [place]. tel: gestation of tel: [phone] Associates Roberto Suprvsn of preg w Mar-0 Sobbing Referring In Womens history of Lloyd. Provider: Health PA, infertility, 8 700 Awa PO Box second Medical Cutler T, 1522, trimesterSupervis Center 700 [place], ion of other high [address], Medical [place], risk pregnancies, Suite Center [id number], second 120, Lopez 120, [place] trimesterVelament Roberto Mejia, tel: ous insertion of [place], umbilical cord, [address], [id number]. second [place]. tel: trimesterObesity tel: [phone] complicating [id number] , second trimester Associates Roberto Suprvsn of preg w Feb-0 Sobbing Referring In Womens history of Lloyd. Provider: Health PA, infertility, 8 700 Awa PO Box second Medical Cutler T, 1522, trimesterSupervis Center 700 [place], ion of other high [address], Medical [place], risk pregnancies, Suite Center [id number], second 120, Lopez 120, [place] trimesterVelament Roberto Mejia, tel: ous insertion of [place], [place], umbilical cord, [address], [id number]. unsp [place]. tel: trimesterObesity tel: [phone] complicating [id number] , second trimester Associates Roberto Suprvsn of preg w Feb-0 Sobbing Referring In Womens Ultrasound history of 1-201 Lloyd. Provider: Juliocesar ENG, infertility, 8 700 Awa PO Box second Medical Cutler T, 152, trimesterSupervis Center 700 [place], ion of other high [address], Medical [place], risk pregnancies, Suite Center [id number], second 120, Lopez 120, US trimesterObesity Roberto Mejia, tel:+2 complicating [place], [place], , second [address], [id number]. [id number] weeks [place]. tel: gestation of tel: [phone] Associates Roberto Suprvsn of preg w [place]-0 Sobbing Referring In Womens history of 4-201 Lloyd. Provider: Juliocesar ENG, infertility, 8 700 Awa PO Box second Medical Cutler T, 152, trimesterSupervis Center 700 [place], ion of other high [address], Medical [place], risk pregnancies, Suite Center [id number], second 120, Lopez 120, US trimesterObesity Roberto Mejia, tel:+2 complicating [place], [place], , second [address], [id number]. [id number] weeks [place]. tel: gestation of tel: [phone] Associates Roberto Suprvsn of preg w Dec-0 Sobbing Referring In Womens history of 7-201 Lloyd. Provider: Juliocesar ENG, infertility, 7 700 Awa PO Box first Medical Cutler T, 152, trimesterSupervis Center 700 [place], ion of other high [address], Medical [place], risk pregnancies, Suite Center [id number], first 120, Lopez 120, US trimesterObesity Roberto Mejia, tel:+2 complicating [place], [place], , first [address], [id number]. [id number] weeks [place]. tel: gestation of tel: [phone] Associates Roberto Suprvsn of preg w Nov-2 Sobbing Referring In Womens history of 0-201 Lloyd. Provider: Juliocesar ENG, infertility, 7 700 Awa PO Box first Medical Cutler T, 152, trimesterSupervis Center 700 [place], ion of other high [address], Medical [place], risk pregnancies, Suite Center [id number], first [id number] 120, Lopez 120, [place] weeks gestation Roberto Mejia, tel: [place], [address], [id number]. [place]. tel: tel: [phone] Associates Roberto Suprvsn of preg w Nov-0 Sobbing Referring In Womens history of Lloyd. Provider: Juliocesar ENG, infertility, 7 700 Awa PO Box first Medical Cutler T, 1521, trimesterSupervis Center [facility] [place], james of other high Drive, Medical [place], risk pregnancies, Suite Center [id number], first 120, Lopez 120, US trimesterObesity Roberto Mejia, tel: complicating [place], , first [address], [id number]. trimester8 weeks [place]. tel: gestation of tel: [phone] Associates Roberto Irregular Menses Dakota-2 Cutler Referring In Womens -201 Awa. Provider: Juliocesar ENG, 7 700 Awa PO Box Medical Cutler T, 1521, Center [address], [facility] [place], 120, Center [id number], Mejia, [facility] 120, [place] Roberto COLEMAN, tel:[phone] [place], , [place]. [id number]. tel: tel: [phone] Associates Roberto Irregular September-2 Cutler Referring In Womens MensesFemale 5-201 Awa. Provider: Juliocesar ENG, infertility 7 700 Awa PO Box associated with Medical Cutler T, 1521, anovulation Center [facility] Dr Kalpesh, [facility] Medical [place], 120, Center [id number], Roberto, [facility] 120, [place] Roberto COLEMAN, tel:[phone] [place], , [place]. [id number]. tel: tel: [phone] Associates Roberto Female May-2 Cutler Referring In Womens infertility, 2-201 Awa. Provider: Juliocesar ENG, unspecified 7 700 Awa PO Box Medical Cutler T, 1521, Center [address], [facility], 120, [place] [id number], [facility] 120, Roberto COLEMAN, tel:[phone] [facility] , . [id number]. tel: tel:+[phone] 8456813 Associates Roberto Abnormal finding May-0 Cutler In Womens of blood 8-201 Awa. Health PA, chemistry, 7 700 PO Box unspecified Medical 1522, Center Dr Kalpesh, [facility] [place], 120, [id number], Mejia, [facility], tel:[phone] , [place]. tel: [phone] Associates Roberto Female May-0 Cutler Referring In Womens infertility, 2-201 Awa. Provider: Juliocesar ENG, unspecifiedFemale 7 700 Awa PO Box infertility, Medical Cutler T, 1522, unspecified Center [address] Dr Kalpesh, [facility], 120, [place] [id number], [place] [address], Roberto COLEMAN, tel:[phone] [place], , . [id number]. tel: tel:+[phone] Family History Family Member Diagnosis Age At Onset Maternal Grandfather Cardiovascular Disease Maternal Grandfather Diabetes Maternal Grandmother Diabetes Maternal Grandmother Hypertension Father Kidney Disease Maternal Grandfather Lung Disease Immunizations Vaccine Date Status Comments Tdap completed Source: New Immunization Record Influenza, injectable, completed Source: New Immunization Record quadrivalent, preservative free, 3 yrs or older Payers Payer name Insurance type Covered constitution party ID Authorization(s) [facility] [id number] [facility] [id number] [facility] [id number] Social History Type Description Quantity Date Captured [...] Christy Luna BOOKED Appointment Christy Luna BOOKED Appointment Christy Luna BOOKED Appointment Christy Luna BOOKED Appointment Christy Luna BOOKED Appointment Christy Luna BOOKED Appointment Christy Luna BOOKED Appointment Christy Luna BOOKED Future Order: Radiology Order OB Detailed Complete Ultrasound Ordered ([id number]) Future Order: Radiology Order Ultrasound OB Follow-up ([id number]) Ordered Future Order: Radiology Order Ultrasound OB Follow-up ([id number]) Ordered Future Order: Radiology Order Biophysical Profile without NST Ordered ([id number]) Date Type Problem Goal Intervention Status Start [...]
--- OUTSIDE RECORDS SUMMARY | 2018-01-08 19:14 | External Medical Summary | Continuity of Care Document ---
:1990 Author Organization [facility] Address [address] [place], [place] [id number] Phone Care Team Providers Name Role Phone Saundra Shital WRIGHT Unavailable Unavailable Allergies, Adverse Reactions, Alerts Substance Reaction Severity Status Sulfa (Sulfonamide Antibiotics) Unknown Active codeine Unknown Active Medications Medication Instructions Dosage Effective Status Comments Dates (start - stop) Vitamin take 1 tablet by Not Available - Active tablet oral route every day nitrofurantoin take 1 capsule by 100 MG - No Longer monohydrate/macrocry oral route every Active stals 100 mg capsule 12 hours with food Problems Condition Effective Dates (start - stop) [...] - trimester 12 weeks gestation of - Abnormal finding of blood chemistry, unspecified Asthma Active Depression Active Procedures Procedure Date Unknown Results Test Name Date and Time Measure Units Reference Range Abnormal Flag Comments Unknown Advance Directives Directive Yes / No Effective Date File Name Unknown Encounters Encounter Practice Location Reason(s) Diagnoses Date Provider Care Team Description For Visit Members Bhavani Mejia Suprvsn of preg w Dec-0 Sobbing Referring In Womens history of 7-201 Lloyd. Provider: Juliocesar ENG, infertility, first 7 700 Awa PO Box trimesterSupervisio Medical Cutler T, 1522, n of other [facility] 700 [place], risk pregnancies, [facility], [facility], first Suite Center [id number], trimesterObesity 120, Lopez 120, [place] complicating Roberto Mejia, tel: , first [place], [place], shrdotdat01 weeks [address], [id number]. gestation of [place]. tel: tel: [phone] Bhavani Mejia Dec-0 Sobbing In Womens 3-201 Lloyd. Juliocesar ENG, 7 700 [facility] 152, [place], [place], Suite , 120, [place], [place]: [place], [address], [place]. tel: [phone] Bhavani Mejia Suprvsn of preg w Nov-2 Sobbing Referring In Womens history of 0-201 Lloyd. Provider: Juliocesar ENG, infertility, first 7 700 Awa PO Box trimesterSupervisio Medical Cutler T, 1522, n of other [facility] 700 [place], risk pregnancies, [facility], first [id number] Suite Center [id number], weeks gestation of 120, Lopez 120, [place] Roberto Mejia, tel: [place], [address], [id number]. [place]. tel: tel: [phone] Bhavani Mejia Suprvsn of preg w Nov-0 Sobbing Referring In Womens history of 9-201 Lloyd. Provider: Juliocesar ENG, infertility, first 7 700 Awa PO Box trimesterSupervisio Medical Cutler T, 1522, n of other [facility] Center 700 [place], risk pregnancies, [facility], [facility] Suite Center [id number], trimesterObesity 120, Lopez 120, [place] complicating Roberto Mejia, tel:[phone] , first [place], trimester8 weeks [address], [id number]. gestation of [place]. tel: tel: [phone] Associates Roberto Irregular Menses Dakota-2 Cutler Referring In Womens 1-201 Awa. Provider: Juliocesar ENG, 7 700 Awa PO Box Medical Cutler T, 1522, Center [address] Dr [address], [place], 120, [place] [id number], [facility] 120, Rboerto COLEMAN, tel:[phone] [place], , [place]. [id number]. tel: tel: [phone] Associates Roberto Irregular May-2 Cutler Referring In Womens MensesFemale 5- Awa. Provider: Juliocesar ENG, infertility 7 700 Awa PO Box associated with Medical Cutler T, 1522, anovulation Center [facility] Dr Kalpesh, [place], 120, [place] , Roberto [facility] 120, Roberto COLEMAN, tel:[phone] [place], , [place]. [id number]. tel: tel: [phone] Associates Roberto Female infertility, May-2 Uctler Referring In Womens unspecified 2-201 Awa. Provider: Juliocesar ENG, 7 700 Awa PO Box Medical Cutler T, 1522, Center [address] Dr [address]pesh, [place], 120, [place] [id number], Roberto [facility] 120, [place] Roberto COLEMAN, tel:[phone] [place], , [place]. [id number]. tel: tel: [phone] Associates Roberto Abnormal finding of May-0 Cutler In Womens blood chemistry, 8- Awa. Juliocesar ENG, unspecified 7 700 PO Box Medical 1522, [place] Dr Kalpesh, [facility] [place], 120, [id number], Roberto, JARED, tel:[phone] , [place]. tel: [phone] Associates Roberto Female infertility, May-0 Cutler Referring In Womens unspecifiedFemale 2-201 Awa. Provider: Health PA, infertility, 7 700 Awa PO Box unspecified Medical Omayra Chamberlain, 1522, Center [address] Dr Kalpesh, [place], 120[facility] [id number], Roberto [facility] 120, Roberto COLEMAN, tel:[phone] JARED, [address] , [place]. [id number]. tel: tel: [phone] Family History Family Member Diagnosis Age At Onset Maternal Grandfather Cardiovascular Disease Maternal Grandfather Diabetes Maternal Grandmother Diabetes Maternal Grandmother Hypertension Father Kidney Disease Maternal Grandfather Lung Disease Immunizations Vaccine Date Status Comments Influenza, injectable, completed Source: New Immunization Record quadrivalent, preservative free, 3 yrs or older Payers Payer name Insurance type Covered constitution party ID Authorization(s) [facility] [id number] [facility] [id number] Social History Type Description Quantity Date Captured [...] Status Goal Lifestyle education regarding diet completed Appointment Christy Luna BOOKED Date Type Problem Goal Intervention Status Start [...]
--- OUTSIDE RECORDS SUMMARY | 2018-01-08 19:14 | External Medical Summary | Continuity of Care Document ---
:1990 Author Organization [facility] Address [address] [place], [place] [phone] Phone Care Team Providers Name Role Phone [...] Dakota-1 Sobbing Referring In Womens anemia, 8-201 Sheridan. Provider: Marques Freed 8 700 Awa PO Box rtum Follow-Up, [facility], 1522, Routine Center [address] [place] [address], Suite Center [id number], 120, Lopez 120, [place] Roberto Mejia, tel:+ [place], [address], [id number]. [place]. tel: tel: [phone] Bhavani Mejia Dakota-0 Sobbing Referring In Womens 5-201 Sheridan. Provider: Juliocesar ENG, 8 700 Awa PO Box [facility], 1522, Center [address] [place] [address], Suite Center [id number], 120, Lopez 120, [place] Roberto Mejia, tel:+ [place], [address], [id number]. [place]. tel: tel: [phone] Bhavani Mejia Anemia, Dakota-0 Sobbing Referring In Womens unspecifiedAnemia 4-201 Sheridan. Provider: Juliocesar ENG, , 8 700 Awa PO Box unspecifiedPostpa [facility], 1522, rtum Follow-Up, Center [address] [place] [address], Suite Center [id number], 120, Lopez 120, [place] Roberto Mejia, tel:+ [place], [address], [id number]. [place]. tel: tel: [phone] Bhavani Mejia Obesity, Apr-2 Sobbing Referring In Womens unspecified 3-201 Sheridan. Provider: Juliocesar ENG, 8 700 Awa PO Box Medical Cutler T, 1522, Center [address] [place] [address], Suite Center [id number], 120, Lopez 120, [place] Roberto Mejia, tel:+ [place], [address], [id number]. [place]. tel: tel: [phone] Bhavani Mejia Obesity, Mar-2 Sobbing Referring In Womens unspecified 6-201 Sheridan. Provider: Juliocesar ENG, 8 700 Awa PO Box Medical Cutler T, 152, Center 700 [facility], [facility], Suite Center [id number], 120, Lopez 120, [place] Roberto Mejia, [place]: [place], [address], [id number]. [place]. tel: tel: [phone] Bhavani Mejia Suprvsn of preg w Mar-0 Sobbing Referring In Womens history of 1-201 Lloyd. Provider: Juliocesar ENG, infertility, 8 700 Awa PO Box second trimester Medical Cutler T, 152, Center [address] [facility], Suite Center [id number], 120, Lopez 120, [place] Roberto Mejia, tel: [place], [place], 114, [id number]. [place]. tel: tel: [phone] Bhavani Mejia Suprvsn of preg w Feb-0 Sobbing Referring In Womens history of 1-201 Lloyd. Provider: Juliocesar ENG, infertility, 8 700 Awa PO Box second Medical Cutler T, 152, trimesterVelament Center 700 [place], ous insertion of [facility], umbilical cord, Suite Center [id number], unsp trimester 120, Lopez 120, [place] Roberto Mejia, [place]: [place], [address], [id number]. [place]. tel: tel: [phone] Bhavani Mejia Suprvsn of preg w Feb-0 Sobbing Referring In Womens Ultrasound history of 1-201 Lloyd. Provider: Juliocesar ENG, infertility, 8 700 Awa PO Box second trimester Medical Cutler T, 152, Center [address] [facility], Suite Center [id number], 120, Lopez 120, [place] Roberto Mejia, tel: [place], [place], 114, [id number]. [place]. tel: tel: [phone] Bhavani Mejia Suprvsn of preg w [place]-0 Sobbing Referring In Womens history of 4-201 Lloyd. Provider: Juliocesar ENG, infertility, 8 700 Awa PO Box second trimester Medical Cutler T, 1522, Center 700 [facility], [facility], Suite Center [id number], 120, Lopez 120, [place] Roberto Mejia, [place]: [place], [address], [id number]. [place]. tel: tel: [phone] Bhavani Mejia Nov-0 Sobbing Referring In Womens 9-201 Lloyd. Provider: Juliocesar ENG, 7 700 Awa PO Box Medical Cutler T, 152, Center 700 [facility], [facility], Suite Center [id number], 120, Lopez 120, [place] Roberto Mejia, tel: [place], [address], [id number]. [place]. tel: tel: [phone] Bhavani Mejia Irregular Menses Dakota-2 Cutler Referring In Womens 1-201 Awa. Provider: Juliocesar ENG, 7 700 Awa PO Box Medical Cutler T, 152, Center [facility] Dr Kalpesh, [facility], 120, Center [id number], Roberto, [facility] 120, [place] Roberto COLEMAN, tel:[phone] [place], , [place]. [id number]. tel: tel: [phone] Bhavani Mejia Irregular May-2 Cutler Referring In Womens MensesFemale 5-201 Awa. Provider: Juliocesar ENG, infertility 7 700 Awa PO Box associated with Medical Cutler T, 152, anovulation Center [facility] Dr Kalpesh, [facility] [place], 120, Center [id number], Roberto, [facility] 120, [place] Roberto COLEMAN, tel: [phone] [place], , [place]. [id number]. tel: tel: [phone] Bhavani Mejia Female May-2 Cutler Referring In Womens infertility, 2-201 Awa. Provider: Juliocesar ENG, unspecified 7 700 Awa PO Box Medical Cutler T, 1522, Center [address], [facility] [place], 120, Center [id number], Roberto, [facility] 120, US Roberto COLEMAN, tel:[phone] [facility] , [place]. [id number]. tel: tel: [phone] Associates Roberto Abnormal finding May-0 Cutler In Womens of blood 8-201 Awa. Health PA, chemistry, 7 700 PO Box unspecified Medical 1522, Center Dr Kalpesh, [facility] [place], 120, [id number], Mejia, [facility], tel: [phone] , . tel: [phone] Associates Roberto Female May-0 Cutler Referring In Womens infertility, 2-201 Awa. Provider: Health PA, unspecifiedFemale 7 700 Awa PO Box infertility, Medical Cutler T, 1522, unspecified Center [facility] Dr Kalpesh, [facility], 120, [address] [id number], [place] [address], [place], Mejia, tel: [phone] [facility] , . [id number]. tel: tel: [phone] Family History Family Member Diagnosis Age At Onset Maternal Grandfather Cardiovascular Disease Maternal Grandfather Diabetes Maternal Grandmother Diabetes Maternal Grandmother Hypertension Father Kidney Disease Maternal Grandfather Lung Disease Immunizations Vaccine Date Status Comments Tdap completed Source: New Immunization Record Influenza, injectable, completed Source: New Immunization Record quadrivalent, preservative free, 3 yrs or older Payers Payer name Insurance type Covered green party ID Authorization(s) [facility] [id number] [facility] [id number] [facility] [id number] Social History Type Description Quantity Date Captured [...] diet Goal Lifestyle education regarding completed diet May-02-2017 Goal Lifestyle education regarding completed diet Appointment Christy Luna BOOKED Future Order: Radiology Order OB Detailed Complete Ultrasound Ordered ([id number]) Date Type Problem Goal Intervention Status Start [...]
--- OUTSIDE RECORDS SUMMARY | 2018-01-08 19:14 | External Medical Summary | Continuity of Care Document ---
:1990 Author Organization [facility] Address [address] [place], [place] [id number] Phone Care Team Providers Name Role Phone [...] Team Description For Visit Members Bhavani Mejia Nov- Omayra In Womens 2-201 Awa. Health VELASQUEZ, 7 700 [facility] [address], [address] Kalpesh, [facility], 120, [id number], tel:[phone] [address] , [place]. tel: [phone] Bhavani Mejia Irregular Menses Oct- Cutler Referring In Womens -201 Awa. Provider: Juliocesar ENG, [address] [facility] Medical Cutler T, [address], [address], [facility], 120, [place] [id number], [place] [address], JARED, Roberto, tel:[phone] [facility] , [place]. [id number]. tel: tel: [phone] Associates Roberto Irregular May-2 Cutler Referring In Womens MensesFemale 5-201 Awa. Provider: Health PA, infertility 7 700 Awa PO Box associated with Medical Cutler T, 1522, anovulation Center [address] Dr Kalpesh, [facility], 120, [place] , [facility] 120, JARED, Roberto, tel: [phone] [place], , [place]. [id number]. tel: tel:+ [phone] Associates Roberto Female May-2 Cutler Referring In Womens infertility, 2-201 Awa. Provider: Juliocesar ENG, unspecified 7 700 Awa PO Box Medical Cutler T, 1522, [address], [facility], 120, [place] [id number], Roberto [facility] 120, Roberto COLEMAN, tel:[phone] [facility] , [place]. [id number]. tel: tel:+[phone] Associates Roberto Abnormal finding May-0 Cutler In Womens of blood 8-201 Awa. Health VELASQUEZ, chemistry, 7 700 PO Box unspecified Medical 1522, Center Dr Kalpesh, [facility] [place], 120, [id number], Mejia, JARED, tel: [phone] , [place]. tel: [phone] Associates Roberto Female May-0 Cutler Referring In Womens infertility, 2-201 Awa. Provider: Health VELASQUEZ, unspecifiedFemale 7 700 Awa PO Box infertility, Medical Cutler T, 1522, unspecified Center [address], [facility], 120, [place] [id number], Roberto [facility] 120, Roberto OCLEMAN, tel:[phone] [place], , . [id number]. tel: tel:[phone] Family History Family Member Diagnosis Age At Onset Maternal Grandfather Cardiovascular Disease Maternal Grandfather Diabetes Maternal Grandmother Diabetes Maternal Grandmother Hypertension Father Kidney Disease Maternal Grandfather Lung Disease Immunizations Vaccine Date Status Comments Unknown Payers Payer name Insurance type Covered green party ID Authorization(s) ZEESHAN JARED BL [id number] Social History Type Description Quantity Date Captured [...]
--- OUTSIDE RECORDS SUMMARY | 2018-01-08 19:14 | External Medical Summary | Continuity of Care Document ---
:1990 Author Organization [facility] Address [address] [place], [place] [id number] Phone Care Team Providers Name Role Phone [...] Effective Dates (start - stop) Clinical Status Velamentous insertion of umbilical - cord, third trimester Obesity complicating , third - trimester 32 weeks gestation of - Female infertility, unspecified [...] third trimester 34 weeks gestation of - Gestational htn w/o significant - proteinuria, third trimester Abnormal finding of blood chemistry, unspecified Asthma Active Depression Active Procedures Procedure Date Ultrasnd preg uterus, flwup/repeat biophys prfl w/o nstress test Results Test Name Date and Time Measure Units Reference Range Abnormal Flag Comments Unknown Advance Directives Directive Yes / No Effective Date File Name Unknown Encounters Encounter Practice Location Reason(s) Diagnoses Date Provider Care Team Description For Visit Members Bhavani Mejia Supervision of Sobbing Referring In Womens other high risk Lloyd. Provider: Juliocesar [place], pregnancies, 8 700 Awa PO Box third Medical Cutler T, 1521, trimesterVelament Center [address] [place], ous insertion of [address], Medical [place], umbilical cord, Suite Center [id number], third [id number] 120, [place] 120, [place] weeks gestation Roberto Mejia, tel: [place], [place], [phone], [id number]. [place]. tel: tel: [phone] Bhavani Mejia Supervision of Sobbing Referring In Womens Ultrasound other high risk Lloyd. Provider: [facility], pregnancies, 8 700 Awa PO Box third Medical [place] T, 1521, trimesterGestatio Center [address] [place], nal htn w/o Drive, Medical [place], significant Suite Center [id number], proteinuria, 120, [place] 120, [place] third Roberto Mejia, tel:[phone] trimesterVelament [place], [place] [address], [id number]. umbilical cord, [place]. tel: third tel: [phone] weeks gestation [id number] of Associates [facility] Gestational htn May-0 Sobbing Referring In Womens w/o significant 1-201 Lloyd. Provider: Julioceasr ENG, proteinuria, 8 700 Awa PO Box third trimester Medical Cutler T, 152, Center 700 [facility], Suite Center [id number], 120, [place] 120, [place] Roberto Mejia, tel: [place], [address], [id number]. [place]. tel: tel:[phone] Associates Roberto Lopezvsn of preg w Apr-3 Sobbing Referring In Womens history of 0-201 Lloyd. Provider: Juliocesar ENG, infertility, 8 700 Awa PO Box third Medical [place] T, 1521, trimesterSupervis Center [address] [place] [address], ion of [facility], risk pregnancies, Suite Center [id number], third 120, [place] 120, [place] trimesterGestatio Roberto Mejia, tel: nal htn w/o [place], significant [address], [id number]. proteinuria, [place]. tel: third [id number] tel: [phone] weeks gestation [id number] of Associates Roberto Obesity, Apr-2 Sobbing Referring In Womens unspecifiedSuprvs 3-201 Lloyd. Provider: Juliocesar ENG, n of preg w 8 700 Awa PO Box history of Medical [place] T, 152, infertility, Center 700 [facility], trimesterSupervis Suite Center [id number], ion of [facility] 120, [place] 120, [place] risk pregnancies, Roberto Mejia, tel: third [place], trimesterVelament [address], [id number]. ous insertion of [place]. tel: umbilical cord, tel: [phone] third trimester [phone] Associates Roberto Velamentous Apr-2 Sobbing Referring In Womens Ultrasound insertion of 3-201 Lloyd. Provider: Juliocesar ENG, umbilical cord, 8 700 Awa PO Box third Medical [place] T, 152, trimesterObesity Center [address] [place], [address], Medical [place], , third Suite Center [id number], [id number] weeks 120, [place] 120, [place] gestation of Roberto Roberto, tel:+ [place], [address], [id number]. [place]. tel: tel: [phone] Associates Roberto Suprvsn of preg w Apr-0 Sobbing Referring In Womens history of Lloyd. Provider: Health PA, infertility, 8 700 Awa PO Box third Medical [place] T, 152, trimesterSupervis Center [address] [place], ion of other high Drive, Medical [place], risk pregnancies, Suite Center [id number], third 120, [place] 120, [place] trimesterVelament Roberto Mejia, tel: ous insertion [place], umbilical cord, [address], [id number]. third [id number] [place]. tel: weeks gestation tel: [phone] of [phone] Associates Roberto Obesity, Mar-2 Sobbing Referring In Womens unspecifiedSuprvs Lloyd. Provider: Health PA, n of preg w 8 700 Awa PO Box history of Medical Cutler T, 152, infertility, Center [address] [place], [address], Medical [place], trimesterSupervis Suite Center [id number], ion of other high 120, [place] 120, [place] risk pregnancies, Roberto Mejia, tel:+ third [id number] [place], [place], weeks gestation [address], [id number]. of [place]. tel: tel: [phone] Bhavani Mejia Supervision of Mar-2 Sobbing Referring In Womens Ultrasound other high risk Lloyd. Provider: Health PA, pregnancies, 8 700 Awa PO Box third Medical Cut[place] T, 152, trimesterVelament Center [address] [place], ous insertion of Drive, Medical [place], umbilical cord, Suite Center [id number], third 120, [place] 120, [place] trimesterObesity Roberto Mejia, tel:+ complicating [place], [place], , third [address], [id number]. [id number] weeks [place]. tel: gestation of tel: [phone] Associates Roberto Suprvsn of preg w Mar-0 Sobbing Referring In Womens history of 1-201 Lloyd. Provider: Juliocesar ENG, infertility, 8 700 Awa PO Box second Medical Cut[place] T, 1522, trimesterSupervis Center [address] [place], ion of other high Drive, Medical [place], risk pregnancies, Suite Center [id number], second 120, [place] 120, [place] trimesterVelament Roberto Mejia, tel: ous insertion [place], umbilical cord, [address], [id number]. second [place]. tel: trimesterObesity tel: [phone] complicating [id number] , second trimester Associates Roberto Suprvsn of preg w b-0 Sobbing Referring In Womens history of 1- Lloyd. Provider: Juliocesar ENG, infertility, 8 700 Awa PO Box second Medical [place] T, 1522, trimesterSupervis Center [address] [place], ion of other high Drive, Medical [place], risk pregnancies, Suite Center [id number], second 120, [place] 120, [place] trimesterVelament Roberto Mejia, tel: ous insertion [place], [place], umbilical cord, [address], [id number]. unsp [place]. tel: trimesterObesity tel: [phone] complicating [id number] , second trimester Associates Roberto Suprvsn of preg w Jun-0 Sobbing Referring In Womens Ultrasound history of 1-201 Lloyd. Provider: Juliocesar ENG, infertility, 8 700 Awa PO Box second Medical [place] T, 1522, trimesterSupervis Center 700 [place], ion of other high Drive, Medical [place], risk pregnancies, Suite Center [id number], second 120, [place] 120, [place] trimesterObesity Roberto Mejia, tel: complicating [place], [place], , second [address], [id number]. weeks [place]. tel: gestation of tel: [phone] Associates Roberto Suprvsn of preg w [place]-0 Sobbing Referring In Womens history of 4-201 Lloyd. Provider: Health PA, infertility, 8 700 Awa PO Box second Medical Cutler T, 152, trimesterSupervis Center [address] [place], ion of other high Drive, Medical [place], risk pregnancies, Suite Center [id number], second 120, [place] 120, [place] trimesterObesity Roberto Mejia, tel:+ complicating [place], [place], , second [address], [id number]. [id number] weeks [place]. tel: gestation of tel: [phone] Associates Roberto Suprvsn of preg w Dec-0 Sobbing Referring In Womens history of 7-201 Lloyd. Provider: Juliocesar PA, infertility, 7 700 Awa PO Box first Medical [place] T, 152, trimesterSupervis Center [address] [place], ion of other high Drive, Medical [place], risk pregnancies, Suite Center [id number], first 120, [place] 120, [place] trimesterObesity Roberto Mejia, tel: complicating [place], [place], , first [address], [id number]. [id number] weeks [place]. tel: gestation of tel: [phone] Associates Roberto Suprvsn of preg w Nov-2 Sobbing Referring In Womens history of 0-201 Lloyd. Provider: Juliocesar ENG, infertility, 7 700 Awa PO Box first Medical [place] T, 152, trimesterSupervis Center 700 [place], ion of other high Drive, Medical [place], risk pregnancies, Suite Center [id number], first [email or web address] 120, [place] 120, [place] weeks gestation Roberto Mejia, tel:2 [place], [address], [id number]. [place]. tel: tel: [phone] Associates Roberto Suprvsn of preg w Nov-0 Sobbing Referring In Womens history of 9-201 Lloyd. Provider: Juliocesar ENG, infertility, 7 700 Awa PO Box first Medical [place] T, 1522, trimesterSupervis Center 700 [place], ion of other high Drive, Medical [place], risk pregnancies, Suite Center [id number], first 120, [place] 120, [place] trimesterObesity Roberto Mejia, tel:+ complicating [place], [place], , first [address], [id number]. trimester8 weeks [place]. tel: gestation of tel: [phone] Associates Roberto Irregular Menses [place]-2 Cutler Referring In Womens 1-201 Awa. Provider: Juliocesar ENG, 7 700 Awa PO Box Medical [place] T, 1522, Center [facility] Dr Kalpesh, [facility], 120, [place] [id number], [facility] 120, [place] Roberto COLEMAN, tel:[phone] [place], , [place]. [id number]. tel: tel: [phone] Associates Roberto Irregular May-2 Cutler Referring In Womens MensesFemale 5-201 Awa. Provider: Juliocesar ENG, infertility 7 700 Awa PO Box associated with Medical [place] T, 1522, anovulation Center [facility] Dr Kalpesh, [facility], 120, [place] , [facility] 120, Roberto COLEMAN, tel:[phone] [place], , [place]. [id number]. tel: tel: [phone] Associates Roberto Female May-2 Cutler Referring In Womens infertility, 2-201 Awa. Provider: Juliocesar ENG, unspecified 7 700 Awa PO Box Medical [place] T, 1522, [address], [facility], 120, [place] [id number], [facility] 120, [place] Roberto COLEMAN, tel:[phone] [place], , [place]. [id number]. tel: tel: [phone] Associates Roberto Abnormal finding May-0 Cutler In Womens of blood 8-201 Awa. Health VELASQUEZ, chemistry, 7 700 PO Box unspecified Medical 1522, Center Dr Kalpesh, [facility] [place], 120, [id number], Mejia, JARED, tel: [phone] , [place]. tel: [phone] Associates Roberto Female May-0 Cutler Referring In Womens infertility, 2-201 Awa. Provider: Health VELASQUEZ, unspecifiedFemale 7 700 Awa PO Box infertility, Medical Cutler T, 1522, unspecified Center [address] Dr Kalpesh, [facility], 120, [place] [id number], Roberto [facility] 120, [place] Roberto COLEMAN, tel: [phone] [place], [address] , [place]. [id number]. tel: tel: [phone] Family History Family Member Diagnosis Age At Onset Maternal Grandfather Cardiovascular Disease Maternal Grandfather Diabetes Maternal Grandmother Diabetes Maternal Grandmother Hypertension Father Kidney Disease Maternal Grandfather Lung Disease Immunizations Vaccine Date Status Comments Tdap completed Source: New Immunization Record Influenza, injectable, completed Source: New Immunization Record quadrivalent, preservative free, 3 yrs or older Payers Payer name Insurance type Covered green party ID Authorization(s) [facility] [id number] [facility] [id number] [facility] [id number] Social History Type Description Quantity Date Captured [...] Christy Luna BOOKED Future Order: Radiology Order Ultrasound OB Follow-up ([id number]) Ordered Future Order: Radiology Order Biophysical Profile without NST Ordered ([id number]) Future Order: Radiology Order OB Detailed Complete Ultrasound Ordered ([id number]) Future Order: Radiology Order Ultrasound OB Follow-up ([id number]) Ordered Future Order: Radiology Order Biophysical Profile without NST Ordered ([id number]) Future Order: Radiology Order Ultrasound OB Follow-up ([id number]) Ordered Date Type Problem Goal Intervention Status [...]
--- OUTSIDE RECORDS SUMMARY | 2018-01-08 19:14 | External Medical Summary | Continuity of Care Document ---
:1990 Author Organization [facility] Address [address] [place], [place] [address] Phone Care Team Providers Name Role Phone Shital Arguello DO Unavailable Unavailable Allergies, Adverse Reactions, Alerts Substance Reaction Severity Status Sulfa (Sulfonamide Antibiotics) Unknown Active codeine Unknown Active Medications Medication Instructions Dosage Effective Dates Status Comments (start - stop) Vitamin take 1 tablet by Not Available - Active tablet oral route every day Problems Condition Effective Dates (start - stop) Clinical Status Suprvsn of preg w history of - infertility, first trimester Supervision of other high risk - pregnancies, first trimester Obesity complicating , first - trimester 8 weeks gestation of - Female infertility, unspecified Female infertility, unspecified Irregular Menses Female infertility associated with anovulation Irregular Menses - Female infertility, unspecified - Suprvsn of preg w history of - infertility, first trimester Supervision of other high risk - pregnancies, first trimester 10 weeks gestation of - Abnormal finding of blood chemistry, unspecified Asthma Active Depression Active Procedures Procedure Date Immuniz admnin, 1 vac, sngl/combo 19 Yrs + Flu Vaccine - Quadrivalent Initial OB Visit No Charge Results Test Name Date and Time Measure Units Reference Range Abnormal Flag Comments Unknown Advance Directives Directive Yes / No Effective Date File Name Unknown Encounters Encounter Practice Location Reason(s) Diagnoses Date Provider Care Team Description For Visit Members Bhavani Mejia Suprvsn of preg w Mar-2 Sobbing Referring In Womens history of 0-201 Lloyd. Provider: Health PA, infertility, first 7 700 Awa PO Box trimesterSupervisio Medical [place] T, 152, n of other high Center 700 [place], risk pregnancies, [facility], first [id number] Suite Center [id number], weeks gestation of 120, [place] 120, [place] Roberto Mejia, tel:+ [place], [address], [id number]. [place]. tel: tel: [phone] Associates Roberto Suprvsn of preg w Nov-0 Sobbing Referring In Womens history of 9-201 Lloyd. Provider: Juliocesar ENG, infertility, first 7 700 Awa PO Box trimesterSupervisio Medical [place] T, 152, n of other high Center 700 [place], risk pregnancies, [facility], first Suite Center [id number], trimesterObesity 120, [place] 120, [place] complicating Roberto Mejia, tel: , first [place], trimester8 weeks [address], [id number]. gestation of [place]. tel: tel: [phone] Associates Roberto Irregular Menses Dakota-2 Cutler Referring In Womens 1-201 Awa. Provider: Juliocesar ENG, 7 700 Awa PO Box Medical Cut[place] T, 1521, Center [address], [facility] [place], 120, Center [id number], [facility] 120, [place] Roberto COLEMAN, tel:[phone] [place], , [place]. [id number]. tel: tel: [phone] Bhavani Mejia Irregular September-2 Cutler Referring In Womens MensesFemale 5-201 Awa. Provider: Juliocesar ENG, infertility 7 700 Awa PO Box associated with Medical [place] T, 1521, anovulation Center [address], [facility] [place], 120, Center [id number], Mejia, [facility] 120, [place] Roberto COLEMAN, tel: [phone] [place], , [place]. [id number]. tel: tel: [phone] Associates Roberto Female infertility, May-2 Cutler Referring In Womens unspecified 2-201 Awa. Provider: Health PA, 7 700 Awa PO Box Medical [place] T, 1522, Center [address]pesh, [facility] [place], 120, Center [id number], Roberto, [facility] 120, Roberto COLEMAN, tel:+ [phone] [place], , [place]. [id number]. tel: tel:[phone] Associates Roberto Abnormal finding of May-0 Cutler In Womens blood chemistry, 8-201 Awa. Health PA, unspecified 7 700 PO Box Medical 1522, Center Dr Kalpesh, [facility] [place], 120, [id number], Mejia, [facility], tel:+ [phone] , [place]. tel: [phone] Associates Roberto Female infertility, May-0 Cutler Referring In Womens unspecifiedFemale 2-201 Awa. Provider: Health PA, infertility, 7 700 Awa PO Box unspecified Medical Cutler T, 1522, Center [address] Dr Kalpesh, [facility], 120, [place] [id number], Roberto, [facility] 120, Roberto COLEMAN, tel:+ [phone] [facility] , . [id number]. tel: tel:+[phone] Family History Family Member Diagnosis Age At Onset Maternal Grandfather Cardiovascular Disease Maternal Grandfather Diabetes Maternal Grandmother Diabetes Maternal Grandmother Hypertension Father Kidney Disease Maternal Grandfather Lung Disease Immunizations Vaccine Date Status Comments Influenza, injectable, completed Source: New Immunization Record quadrivalent, preservative free, 3 yrs or older Payers Payer name Insurance type Covered constitution party ID Authorization(s) [facility] [id number] [facility] [id number] Social History Type Description Quantity Date Captured Alcohol Use Details No Caffeine Use Details Tobacco Use Status Never smoked tobacco Smoking Status Never smoker Vital Signs Date / Height Weight BMI Pulse Blood Temperature Respiratory Body Head BMI Time: Rate Pressure Rate Surface Circumference percentile Area 34.4 -2017 2 2:55 kg/m PM eter (2) 198.80 34.1 113/77 2017 lbs 2 mm[Hg] 2:59 kg/m PM eter (2) Chief Complaint And [...]
--- OUTSIDE RECORDS SUMMARY | 2018-01-08 19:14 | External Medical Summary | Continuity of Care Document ---
:1990 Author Organization [facility] Address [address] [place], [place] [id number] Phone Care Team Providers Name Role Phone [...] third trimester 30 weeks gestation of - Female infertility, unspecified [...] - trimester 20 weeks gestation of - Supervision of other high risk - pregnancies, third trimester Velamentous insertion of umbilical - cord, third trimester Obesity complicating , third - trimester 28 weeks gestation of - Velamentous insertion of umbilical - cord, third trimester Obesity complicating , third - trimester 32 weeks gestation of - Abnormal finding of blood chemistry, unspecified Asthma Active Depression Active Procedures Procedure Date OB Visit No Charge Results Test Name Date and Time Measure Units Reference Range Abnormal Flag Comments Unknown Advance Directives Directive Yes / No Effective Date File Name Unknown Encounters Encounter Practice Location Reason(s) Diagnoses Date Provider Care Team Description For Visit Members Associates Roberto Obesity, Apr-2 Sobbing Referring In Womens unspecifiedSuprvs Lloyd. Provider: Health VELASQUEZ, n of preg w 8 700 Awa PO Box history of Medical Cutler T, 152, infertility, Center [address] [place], [facility], trimesterSupervis Suite Center [id number], ion of other high 120, [place] 120, [place] risk pregnancies, Roberto Mejia, tel:+ [place], trimesterVelament [address], [id number]. ous insertion of [place]. tel: umbilical cord, tel: [phone] third trimester [id number] Associates Roberto Velamentous Apr-2 Sobbing Referring In Womens Ultrasound insertion of Lloyd. Provider: Juliocesar ENG, umbilical cord, 8 700 Awa PO Box third Medical Cutler T, 1522, trimesterObesity Center 700 [facility], , third Suite Center [id number], [email or web address] weeks 120, Lopez 120, [place] gestation of Roberto Mejia, tel:+2 [place], [address], [id number]. [place]. tel: tel: [phone] Associates Roberto Suprvsn of preg w Apr-0 Sobbing Referring In Womens history of Lloyd. Provider: Juliocesar ENG, infertility, 8 700 Awa PO Box third Medical Cutler T, 1522, trimesterSupervis Center 700 [place], ion of other high [facility], [facility], risk pregnancies, Suite Center [id number], third 120, Lopez 120, [place] trimesterVelament Roberto Mejia, tel:2 ous insertion [place], umbilical [place], [address], [id number]. third [email or web address] [place]. tel:+316 weeks gestation tel: [phone] of [phone] Associates Roberto Obesity, Mar-2 Sobbing Referring In Womens unspecifiedSuprvs Lloyd. Provider: Juliocesar ENG, n of preg w 8 700 Awa PO Box history of Medical Cutler T, 152, infertility, Center [address] [place], [address], Medical [place], trimesterSupervis Suite Center [id number], ion of other high 120, Lopez 120, [place] risk pregnancies, Roberto Mejia, tel:+ third [email or web address] [place], weeks gestation [address], [id number]. of [place]. tel: tel: [phone] Bhavani Mejia Supervision of Jul-2 Sobbing Referring In Womens Ultrasound other high risk Lloyd. Provider: Health PA, pregnancies, 8 700 Awa PO Box third Medical Cutler T, 152, trimesterVelament Center [address] [place], ous insertion of Drive, Medical [place], umbilical cord, Suite Center [id number], third 120, Lopez 120, [place] trimesterObesity Roberto Mejia, tel:2 complicating [place], , third [address], [id number]. [id number] weeks [place]. tel: gestation of tel: [phone] Associates Roberto Suprpapan of preg w Mar-0 Sobbing Referring In Womens history of Lloyd. Provider: Juliocesar ENG, infertility, 8 700 Awa PO Box second Medical Cutler T, 1521, trimesterSupervis Center 700 [place], ion of other high Drive, Medical [place], risk pregnancies, Suite Center [id number], second 120, Lopez 120, [place] trimesterVelament Roberto Mejia, tel:2 ous insertion [place], umbilical cord, [address], [id number]. second [place]. tel: trimesterObesity tel: [phone] complicating [id number] , second trimester Associates Roberto Suprvsn of preg w Feb-0 Sobbing Referring In Womens history of Lloyd. Provider: Juliocesar ENG, infertility, 8 700 Awa PO Box second Medical Cut[place] T, 152, trimesterSupervis Center 700 [place], ion of other high Drive, Medical [place], risk pregnancies, Suite Center [id number], second 120, Lopez 120, [place] trimesterVelament Roberto Mejia, tel: ous insertion of [place], umbilical cord, [address], [id number]. unsp [place]. tel: trimesterObesity tel: [phone] complicating [id number] , second trimester Associates Roberto Suprvsn of preg w Feb-0 Sobbing Referring In Womens Ultrasound history of 1-201 Lloyd. Provider: Health PA, infertility, 8 700 Awa PO Box second Medical Cutler T, 152, trimesterSupervis Center 700 [place], ion of other high Drive, Medical [place], risk pregnancies, Suite Center [id number], second 120, Lopez 120, [place] trimesterObesity Roberto Mejia, tel: complicating [place], , second [address], [id number]. [id number] weeks [place]. tel: gestation of tel: [phone] Associates Roberto Suprvsn of preg w [place]-0 Sobbing Referring In Womens history of 4-201 Lloyd. Provider: Health PA, infertility, 8 700 Awa PO Box second Medical Cutler T, 152, trimesterSupervis Center 700 [place], ion of other high Drive, Medical [place], risk pregnancies, Suite Center [id number], second 120, Lopez 120, [place] trimesterObesity Roberto Mejia, tel: complicating [place], [place], , second [address], [id number]. [email or web address] weeks [place]. tel: gestation of tel: [phone] Associates Roberto Suprvsn of preg w Dec-0 Sobbing Referring In Womens history of - Lloyd. Provider: Health PA, infertility, 7 700 Awa PO Box first Medical Cutler T, 152, trimesterSupervis Center 700 [place], ion of other high Drive, Medical [place], risk pregnancies, Suite Center [id number], first 120, Lopez 120, [place] trimesterObesity Roberto Mejia, tel:+ complicating [place], , first [address], [id number]. [email or web address] weeks [place]. tel: gestation of tel: [phone] Associates Roberto Suprvsn of preg w Nov-2 Sobbing Referring In Womens history of 0-201 Lloyd. Provider: Juliocesar ENG, infertility, 7 700 Awa PO Box first Medical Cutler T, 1521, trimesterSupervis Center 700 [place], ion of other high Drive, Medical [place], risk pregnancies, Suite Center [id number], first [email or web address] 120, Lopez 120, [place] weeks gestation Roberto Mejia, tel:2 [place], [address], [id number]. [place]. tel: tel: [phone] Associates Roberto Suprvsn of preg w Nov-0 Sobbing Referring In Womens history of 9-201 Lloyd. Provider: Juliocesar ENG, infertility, 7 700 Awa PO Box first Medical Cutler T, 1521, trimesterSupervis Center 700 [place], ion of other high Drive, [facility], risk pregnancies, Suite Center [id number], first 120, Lopez 120, [place] trimesterObesity Roberto Mejia, tel:2 complicating [place], [place], , first [address], [id number]. trimester8 weeks [place]. tel: gestation of tel: [phone] Associates Roberto Irregular Menses [place]-2 Cutler Referring In Womens 1-201 Awa. Provider: Juliocesar ENG, 7 700 Awa PO Box Medical Cutler T, 1521, Center [address], [facility] [place], 120, Center [id number], Roberto, [facility] 120, [place] Roberto COLEMAN, tel:[phone] [place], , [place]. [id number]. tel: tel: [phone] Associates Roberto Irregular May-2 Cutler Referring In Womens MensesFemale 5-201 Awa. Provider: Juliocesar ENG, infertility 7 700 Awa PO Box associated with Medical Cut[place] T, 152, anovulation Center [address], [facility] [place], 120, Center [id number], [facility], [place] Roberto COLEMAN, tel: [phone] [place], , [place]. [id number]. tel: tel: [phone] Associates Roberto Female May-2 Cutler Referring In Womens infertility, 2-201 Awa. Provider: Health VELASQUEZ, unspecified 7 700 Awa PO Box Medical Cutler T, 1522, Center [address], [facility], 120, [place] [id number], [facility] 120, Roberto COLEMAN, tel:[phone] [place], , [place]. [id number]. tel: tel: [phone] Associates Roberto Abnormal finding May-0 Cutler In Womens of blood 8-201 Awa. Health PA, chemistry, 7 700 PO Box unspecified Medical 1522, Center Dr Kalpesh, [facility], 120, [id number], Mejia, [facility], tel: [phone] , [place]. tel: [phone] Associates Roberto Female May-0 Cutler Referring In Womens infertility, 2-201 Awa. Provider: Health VELASQUEZ, unspecifiedFemale 7 700 Awa PO Box infertility, Medical Cutler T, 1522, unspecified Center [address], [facility], 120, [place] [id number], Roberto [facility] 120, Roberto COLEMAN, tel: [phone] [facility] , [place]. [id number]. tel: tel: [phone] Family History Family Member Diagnosis Age At Onset Maternal Grandfather Cardiovascular Disease Maternal Grandfather Diabetes Maternal Grandmother Diabetes Maternal Grandmother Hypertension Father Kidney Disease Maternal Grandfather Lung Disease Immunizations Vaccine Date Status Comments Tdap completed Source: New Immunization Record Influenza, injectable, completed Source: New Immunization Record quadrivalent, preservative free, 3 yrs or older Payers Payer name Insurance type Covered constitution party ID Authorization(s) [facility] [id number] [facility] [id number] [facility] [id number] Social History Type Description Quantity Date Captured Alcohol Use Details No Caffeine Use Details Unknown Tobacco Use Status Unknown Smoking Status Never smoker Vital Signs Date / Height Weight BMI Pulse Blood Temperature Respiratory Body Head BMI Time: Rate Pressure Rate Surface Circumference percentile Area 214.40 36.8 136/84 -2018 lbs 0 mm[Hg] 3:32 kg/m PM eter (2) 214.40 36.8 2018 lbs 0 3:31 kg/m PM eter (2) Chief Complaint And Reason For Visit Unknown Chief Complaint And Reason For Visit Reason For Referral Reason For Referral Unknown Plan Of Care Date Type Action Status Goal Lifestyle education regarding completed diet Appointment Christy Luna KEPT Appointment Crhisty Luna BOOKED Appointment Christy Luna BOOKED Appointment Christy Luna BOOKED Appointment Christy Luan BOOKED Appointment Christy Luna BOOKED Appointment Chirsty Luna BOOKED Appointment Christy Luna BOOKED Appointment Christy Luna BOOKED Future Order: Radiology Order OB Detailed Complete Ultrasound Ordered ([id number]) Future Order: Radiology Order Ultrasound OB Follow-up ([id number]) Ordered Future Order: Radiology Order Ultrasound OB Follow-up ([id number]) Ordered Future Order: Radiology Order Biophysical Profile without NST Ordered ([id number]) Date Type Problem Goal Intervention Status Start [...]
--- OUTSIDE RECORDS SUMMARY | 2018-01-08 19:14 | External Medical Summary | Continuity of Care Document ---
:1990 Author Organization [facility] [facility] Address [address] [place], [place] [phone] Phone Care Team Providers Name Role Phone [...] - trimester 12 weeks gestation of - Female infertility, unspecified [...] Procedures Procedure Date OB Visit No Charge Glucose test Venpnctr fngr/heel/ear stick routne Results Test Name Date and Time Measure Units Reference Range Abnormal Flag Comments Panel Description: Glucose [Mass/volume] in Serum or Plasma --1 hour post 50 g glucose PO GLUCOSE, GESTATIONAL 86 mg/dL <140 N REPORT COMMENT:FASTING: NOTest SCREEN (50G)-140 16:24:00 performed at [facility] [id number] [place] [address]Exjgymvj: LICHA LIANG DO,MPH Advance Directives Directive Yes / No Effective Date File Name Unknown Encounters Encounter Practice Location Reason(s) Diagnoses Date Provider Care Team Description For Visit Members Associates Roberto Suprpapan of preg w Dec-0 Sobbing Referring In Womens history of 7-201 Lloyd. Provider: Juliocesar ENG, infertility, first 7 700 Awa PO Box [facility], 152, n of other [place] [address] Nikolai, risk pregnancies, [facility] Suite [place] [id number], trimesterObesity 120, Lopez 120, [place] complicating Roberto Mejia, tel: , first [place], [place] [email or web address] weeks [address], [id number]. gestation of [place]. tel: tel: [phone] Associates Roberto Suprpapan of preg w Nov-2 Sobbing Referring In Womens history of 0-201 Lloyd. Provider: Juliocesar ENG, infertility, first 7 700 Awa PO Box [facility] Medical Cutler T, 1522, n of other [facility] 700 [place], risk pregnancies, [facility], first [email or web address] Suite Center [id number], weeks gestation of 120, Lopez 120, [place] Roberto Mejia, tel: [place], [address], [id number]. [place]. tel: tel: [phone] Bhavani Mejia Suprpapan of preg w Nov-0 Sobbing Referring In Womens history of 9-201 Lloyd. Provider: Juliocesar ENG, infertility, first 7 700 Awa PO Box [facility] Medical Cutler T, 1522, n of other [facility] 700 [place], risk pregnancies, [facility] Suite [place] [id number], trimesterObesity 120, Lopez 120, [place] complicating Roberto Mejia, tel: , first [place], [place], trimester8 weeks [address], [id number]. gestation of [place]. tel: tel: [phone] Associates Roberto Irregular Menses [place]-2 Cutler Referring In Womens - Awa. Provider: Juliocesar ENG, 7 700 Awa PO Box Medical Cutler T, 1522, Center [facility] Dr Kalpesh, [facility], 120, [place] [id number], Roberto [facility] 120, Roberto COLEMAN, tel:[phone] [place], , [place]. [id number]. tel: tel: [phone] Associates Roberto Irregular May-2 Cutler Referring In Womens MensesFemale Awa. Provider: Juliocesar ENG, infertility 7 700 Awa PO Box associated with Medical Cutler T, 1522, anovulation Center [facility] Dr Kalpesh, [facility], 120, [place] , Roberto [facility] 120, Roberto COLEMAN, tel:[phone] [place], , [place]. [id number]. tel: tel: [phone] Associates Roberto Female infertility, May-2 Cutler Referring In Womens unspecified 2- Awa. Provider: Juliocesar ENG, 7 700 Awa PO Box Medical Cutler T, 1522, Center [address], [facility], 120, [place] [id number], Roberto [facility] 120, [place] Roberto COLEMAN, tel:[phone] [place], , [place]. [id number]. tel: tel: [phone] Associates Roberto Abnormal finding of May-0 Cutler In Womens blood chemistry, 8 Awa. Health VELASQUEZ, unspecified 7 700 PO Box Medical 1522, Center Dr Kalpesh, [facility] [place], 120, [id number], Roberto, JARED, tel:[phone] , [place]. tel: [phone] Associates Roberto Female infertility, May-0 Cutler Referring In Womens unspecifiedFemale 2-201 Awa. Provider: Health PA, infertility, 7 700 Awa PO Box unspecified Medical Omayra T, 1522, Center [address]pesh, [facility], 120, [place] [id number], Lopez Mejia 120, Roberto COLEMAN, tel:[phone] [place], [address] , [place]. [id number]. tel: tel: [phone] Family History Family Member Diagnosis Age At Onset Maternal Grandfather Cardiovascular Disease Maternal Grandfather Diabetes Maternal Grandmother Diabetes Maternal Grandmother Hypertension Father Kidney Disease Maternal Grandfather Lung Disease Immunizations Vaccine Date Status Comments Influenza, injectable, completed Source: New Immunization Record quadrivalent, preservative free, 3 yrs or older Payers Payer name Insurance type Covered democrat ID Authorization(s) [facility] [id number] [facility] [id number] Social History Type Description Quantity Date Captured Alcohol Use Details No Caffeine Use Details Unknown Tobacco Use Status Unknown Smoking Status Never smoker Vital Signs Date / Height Weight BMI Pulse Blood Temperature Respiratory Body Head BMI Time: Rate Pressure Rate Surface Circumference percentile Area 196.90 33.7 133/77 2017 lbs 9 mm[Hg] 3:27 kg/m PM eter (2) Chief Complaint And [...]
--- OUTSIDE RECORDS SUMMARY | 2018-01-08 19:14 | External Medical Summary | Continuity of Care Document ---
:1990 Author Organization [facility] Address [address] [place], [place] [phone] Phone Care Team Providers Name Role Phone [...] - trimester 16 weeks gestation of - Female infertility, unspecified [...] Care Team Description For Visit Members Bhavani Harrisn of preg w [place]-0 Sobbing Referring In Womens history of 4-201 Lloyd. Provider: Juliocesar ENG, infertility, second 8 700 Awa PO Box trimesterSupervisio Medical Cutler T, 1522, n of other [facility] 700 [place], risk pregnancies, [facility], second Suite Center [id number], trimesterObesity 120, Lopez 120, [place] complicating Roberto Mejia, tel: , second [place], [place], weeks [address], [id number]. gestation of [place]. tel: tel: [phone] Bhavani Mejia Suprvsn of preg w Apr-0 Sobbing Referring In Womens history of 7-201 Lloyd. Provider: Juliocesar ENG, infertility, first 7 700 Awa PO Box trimesterSupervisio Medical Cutler T, 1522, n of [facility] 700 [place], risk pregnancies, [facility], first Suite Center [id number], trimesterObesity 120, Lopez 120, [place] complicating Roberto Mejia, tel: , first [place], [place], [email or web address] weeks [address], [id number]. gestation of [place]. tel: tel: [phone] Bhavani Mejia Suprvsn of preg w Mar-2 Sobbing Referring In Womens history of 0-201 Lloyd. Provider: Juliocesar ENG, infertility, first 7 700 Awa PO Box trimesterSupervisio Medical Cutler T, 1522, n of other [facility] 700 [place], risk pregnancies, [facility], first Suite Center [id number], weeks gestation of 120, Lopez 120, [place] Roberto Mejia, tel: [place], [address], [id number]. [place]. tel: tel: [phone] Bhavani Mejia Suprvsn of preg w Nov-0 Sobbing Referring In Womens history of 9 Lloyd. Provider: Juliocesar ENG, infertility, first 7 700 Awa PO Box trimesterSupervisio Medical Cutler T, 1521, n of other high Center [facility] [place], risk pregnancies, Drive, Medical [place], first Suite Center [id number], trimesterObesity 120, Lopez 120, [place] complicating Roberto Mejia, tel: , first [place], [place], trimester8 weeks [address], [id number]. gestation of [place]. tel:+ tel: [phone] Associates Roberto Irregular Menses [place]-2 Cutler Referring In Womens 1-201 Awa. Provider: Juliocesar ENG, 7 700 Awa PO Box Medical Omayra T, 1521, Center [facility] Dr Kalpesh, [facility], 120, Center [id number], [facility] 120, [place] Roberto COLEMAN, tel:[phone] [place], , [place]. [id number]. tel: tel:[phone] Associates Roberto Irregular September-2 Cutler Referring In Womens MensesFemale 5-201 Awa. Provider: Juliocesar ENG, infertility 7 700 Awa PO Box associated with Medical Cutler , 1521, anovulation Center [facility] Dr Kalpesh, [facility], 120, Center [id number], [facility] 120, [place] Roberto COLEMAN, tel:[phone] [place], , [place]. [id number]. tel: tel:[phone] Associates Roberto Female infertility, September-2 Cutler Referring In Womens unspecified 2-201 Awa. Provider: Juliocesar ENG, 7 700 Awa PO Box Medical Cutler T, 1521, Center [address], [facility], 120, Center [id number], Roberto, [facility] 120, [place] Roberto COLEMAN, tel: [phone] [place], , [place]. [id number]. tel: tel:+[phone] Associates Roberto Abnormal finding of May-0 Cutler In Womens blood chemistry, 8-201 Awa. Health PA, unspecified 7 700 PO Box Medical 1522, Center Dr Kalpesh, [facility] [place], 120, [id number], Mejia, [facility], tel: [phone] , . tel: [phone] Bhavani Mejia Female infertility, September-0 Cutler Referring In Womens unspecifiedFemale 2-201 Awa. Provider: Health PA, infertility, 7 700 Awa PO Box unspecified Medical Cutler T, 1522, Center [address] Kalpesh, [facility] Medical [place], 120, [place] [id number], Roberto [place] [address], JARED, Roberto, tel:[phone] [place], , . [id number]. tel: tel: [phone] Family History Family Member Diagnosis Age At Onset Maternal Grandfather Cardiovascular Disease Maternal Grandfather Diabetes Maternal Grandmother Diabetes Maternal Grandmother Hypertension Father Kidney Disease Maternal Grandfather Lung Disease Immunizations Vaccine Date Status Comments Influenza, injectable, completed Source: New Immunization Record quadrivalent, preservative free, 3 yrs or older Payers Payer name Insurance type Covered alliance party ID Authorization(s) [facility] [id number] [facility] [id number] Social History Type Description Quantity Date Captured Alcohol Use Details No Caffeine Use Details Unknown Tobacco Use Status Unknown Smoking Status Never smoker Vital Signs Date / Height Weight BMI Pulse Blood Temperature Respiratory Body Head BMI Time: Rate Pressure Rate Surface Circumference percentile Area 197.20 33.8 125/75 2018 lbs 5 mm[Hg] 4:22 kg/m PM eter (2) Chief Complaint And Reason For Visit Unknown Chief Complaint And Reason For Visit Reason For Referral Reason For Referral Unknown Plan Of Care Date Type Action Status Goal Lifestyle education regarding diet completed Appointment Christy Luna BOOKED Appointment Christy Luna BOOKED Date Type Problem [...]
--- OUTSIDE RECORDS SUMMARY | 2018-01-08 19:14 | External Medical Summary | Continuity of Care Document ---
:1990 Author Organization [facility] Address [address] [place], [place] [phone] Phone Care Team Providers Name Role Phone [...] first trimester 10 weeks gestation of - Female infertility, unspecified [...] Procedures Procedure Date OB Visit No Charge - HAZARDOUS WASTE MATERIAL TECHNICIAN Infct Antigen, HIV-1/2 Antigen/Antibodies 4th Gen Venpnctr fngr/heel/ear stick routne CBC, Automated Hemogram Infct antigen, HBsAg Syphilis test Urine Culture Cult, bactr, shoshana colonycnt, urine Results Test Name Date and Time Measure Units Reference Range Abnormal Flag Comments Panel Description: Bacteria identified in Urine by Culture CULTURE, URINE, 11:02:00 SEE NOTE CULTURE, URINE, ROUTINE ROUTINE MICRO NUMBER: [id number] TEST STATUS: FINAL SPECIMEN SOURCE: URINE SPECIMEN QUALITY: ADEQUATE RESULT: Single organism less than 10,000 CFU/mL isolated. These organisms, commonly found on external and internal genitalia, are considered colonizers. No further testing performed.REPORT COMMENT:RFASTING:UNKNOWNTest performed at [email or web address] [id number] [place] [address]Drfyyubc: LICHA LIANG DO,MPH Panel Description: CBC (INCLUDES DIFF/PLT) WHITE BLOOD CELL 8.1 Thousand/uL 3.8-10.8 N COUNT 11:05:00 RED BLOOD CELL 3.61 Million/uL 3.80-5.10 L COUNT 11:05:00 HEMOGLOBIN 11.0 g/dL 11.7-15.5 L 11:05:00 HEMATOCRIT 32.4 % 35.0-45.0 L 11:05:00 MCV 89.8 fL 80.0-100.0 N 11:05:00 MCH 30.5 pg 27.0-33.0 N 11:05:00 MCHC 34.0 g/dL 32.0-36.0 N 11:05:00 RDW 11.8 % 11.0-15.0 N 11:05:00 PLATELET COUNT 288 Thousand/uL 140-400 N 11:05:00 MPV 9.4 fL 7.5-12.5 N 11:05:00 ABSOLUTE 5630 cells/uL 2361-6069 N NEUTROPHILS 11:05:00 ABSOLUTE 1928 cells/uL 850-3900 N LYMPHOCYTES 11:05:00 ABSOLUTE MONOCYTES 486 cells/uL 200-950 N 11:05:00 ABSOLUTE 41 cells/uL 15-500 N EOSINOPHILS 11:05:00 ABSOLUTE BASOPHILS 16 cells/uL 0-200 N 11:05:00 NEUTROPHILS 69.5 % N 11:05:00 LYMPHOCYTES 23.8 % N 11:05:00 MONOCYTES 6.0 % N 11:05:00 EOSINOPHILS 0.5 % N 11:05:00 BASOPHILS 0.2 % N Test performed at 11:05:00 [facility] [place] [id number] : LICHA LIANG DO,MPH Panel Description: HEPATITIS B SURFACE ANTIGEN W/REFL CONFIRM HEPATITIS B NON-REACTIVE NON-REACTIVE N Test performed at [facility] SURFACE ANTIGEN 11:05:00 [facility] [place] [id number]: LICHA LIANG DO,MPH Panel Description: RPR (DX) W/REFL TITER AND CONFIRMATORY TESTING RPR (DX) W/REFL NON-REACTIVE NON-REACTIVE N REPORT TITER AND 11:05:00 COMMENT:FASTING:NOTest CONFIRMATORY performed at [facility] [address] [place] [address]Wajneapv: LICHA LIANG DO,MPH Panel Description: HIV 1/2 ANTIGEN/ANTIBODY,FOURTH GENERATION W/RFL HIV NON-REACTIVE NON-REACTIVE N HIV-1 antigen and HIV-1/HIV- 2 antibodies were AG/AB, 11:07:00 notdetected. There is no laboratory evidence of 4TH GEN HIVinfection. PLEASE NOTE: This information has been disclosed toyou from records whose confidentiality may beprotected by state law. If your state requires suchprotection, then the state law prohibits you frommaking any further disclosure of the informationwithout the specific written consent of the personto whom it pertains, or as otherwise permitted by law.A general authorization for the release of medical orother information is NOT sufficient for this purpose. For additional information please refer [email or web address].Lodgeo/faq/ODX102(This link is being provided for informational/educational purposes only.) The performance of this assay has not been clinicallyvalidated in patients less than 2 years old. REPORT COMMENT:FASTING:NOTest performed at [email or web address] [id number] [place] [address]Viorlqsz: LICHA LIANG DO,MPH Advance Directives Directive Yes / No Effective Date File Name Unknown Encounters Encounter Practice Location Reason(s) Diagnoses Date Provider Care Team Description For Visit Members Bhavani Mejia Suprvsn of preg w Dec-0 Sobbing Referring In Womens history of 7-201 Lloyd. Provider: Juliocesar ENG, infertility, first Awa [facility], 152, n of [address], risk pregnancies, [facility] Suite [place] , trimesterObesity 120, Lopez 120, [place] complicating Roberto Mejia, tel: , [place], weeks [address], [id number]. gestation of [place]. tel: tel: [phone] Bhavani Mejia Suprvsn of preg w Nov-2 Sobbing Referring In Womens history of 0-201 Lloyd. Provider: Juliocesar ENG, infertility, first 700 Awa PO Box [facility] Cutler T, 152, n of other [place] [address] [place], risk pregnancies, [facility], first [id number] Suite Center [id number], weeks gestation of 120, Lopez 120, [place] Roberto Mejia, tel: [place], [address], [id number]. [place]. tel: tel: [phone] Bhavani Mejia Suprvsn of preg w Nov-0 Sobbing Referring In Womens history of 9-201 Lloyd. Provider: Juliocesar ENG, infertility, first 700 Awa PO Box [facility] Medical [place] T, 152, n of other [place] [address] [place], risk pregnancies, [facility], [facility] Suite Center [id number], trimesterObesity 120, Lopez 120, [place] complicating Roberto Mejia, tel: , first [place], [place], trimester8 weeks [address], [id number]. gestation of [place]. tel: tel: [phone] Associates Roberto Irregular Menses [place]-2 Cutler Referring In Womens 1-201 Awa. Provider: Juliocesar ENG, 7 700 Awa PO Box Medical Cutler T, 1522, Center [address], [facility], 120, [place] [id number], [facility] 120, Roberto COLEMAN, tel:[phone] [place], , [place]. [id number]. tel: tel: [phone] Associates Roberto Irregular May-2 Cutler Referring In Womens MensesFemale 5-201 Awa. Provider: Juliocesar ENG, infertility 7 700 Awa PO Box associated with Medical Cutler T, 1522, anovulation Center [facility] Dr Kalpesh, [facility], 120, [place] [id number], [facility] 120, Roberto COLEMAN, tel:[phone] [facility] , [place]. [id number]. tel: tel: [phone] Associates Roberto Female infertility, May-2 Cutler Referring In Womens unspecified 2-201 Awa. Provider: Juliocesar ENG, 7 700 Awa PO Box Medical [place] T, 1522, Center [facility] Dr Kalpesh, [facility], 120, [place] [id number], [facility] 120, [place] Roberto COLEMAN, tel:[phone] [facility] , [place]. [id number]. tel: tel: [phone] Associates Roberto Abnormal finding of May-0 Cutler In Womens blood chemistry, 8- Awa. Juliocesar ENG, unspecified 7 700 PO Box Medical 1522, [place] Dr Kalpesh, [facility], 120, [id number], Roberto, JARED, tel: [phone] , [place]. tel: [phone] Associates Roberto Female infertility, May-0 Cutler Referring In Womens unspecifiedFemale 2-201 Awa. Provider: Juliocesar ENG, infertility, 7 700 Awa PO Box unspecified Medical Omayra T, 1522, Center [address]esh, [facility], 120[facility] [id number], [facility] 120, Roberto COLEMAN, tel:[phone] JAR[place], [address] , [place]. [id number]. tel: tel: [phone] Family History Family Member Diagnosis Age At Onset Maternal Grandfather Cardiovascular Disease Maternal Grandfather Diabetes Maternal Grandmother Diabetes Maternal Grandmother Hypertension Father Kidney Disease Maternal Grandfather Lung Disease Immunizations Vaccine Date Status Comments Influenza, injectable, completed Source: New Immunization Record quadrivalent, preservative free, 3 yrs or older Payers Payer name Insurance type Covered alliance party ID Authorization(s) [facility] [id number] [facility] [id number] Social History Type Description Quantity Date Captured Alcohol Use Details No Caffeine Use Details Unknown Tobacco Use Status Unknown Smoking Status Never smoker Vital Signs Date / Height Weight BMI Pulse Blood Temperature Respiratory Body Head BMI Time: Rate Pressure Rate Surface Circumference percentile Area 202.00 34.6 132/83 -2017 lbs 7 mm[Hg] 10:27 kg/m AM eter (2) Chief Complaint And [...]
--- OUTSIDE RECORDS SUMMARY | 2018-01-08 19:14 | External Medical Summary | Continuity of Care Document ---
:1990 Author Organization [facility] Address [address] [place], [place] [address] Phone Care Team Providers Name Role Phone [...] Effective Dates (start - stop) Clinical Status Anemia, unspecified Anemia, unspecified Follow-Up, Routine - Female infertility, unspecified Female infertility, unspecified Obesity, unspecified - Iron deficiency anemia, unspecified Follow-Up, Routine Obesity, unspecified - Irregular Menses Female infertility [...] Active Active Procedures Procedure Date Visit No-Charge Hemoglobin count, colorimetric Hematocrit blood count Venpnctr fngr/heel/ear stick routne Results Test Name Date and Time Measure Units Reference Range Abnormal Flag Comments Panel Description: Hemoglobin [Mass/volume] in Blood Hemoglobin 10:20:00 7.2 g/dL 11.1-15.9 L Panel Description: Hematocrit [Volume Fraction] of Blood by Automated count Hematocrit 10:20:00 22.9 % 34.0-46.6 L Advance Directives Directive Yes / No Effective Date File Name Unknown Encounters Encounter Practice Location Reason(s) Diagnoses Date Provider Care Team Description For Visit Members Bhavani Mejia Iron deficiency Oct- Sobbing Referring In Womens anemia, 8-201 Lloyd. Provider: Juliocesar ENG, ebenezerPosdebra 8 700 Awa PO Box artum Follow-Up, [facility] Omayra Chamberlain, 152, Routine Center [address] [place] [address], Suite Center [id number], 120, [place] 120, [place] Roberto Mejia, tel:+ [place], [address], [id number]. [place]. tel: tel: [phone] Bhavani Mejia Anemia, Dakota-0 Sobbing Referring In Womens incision unspecifiedAnemi 4-201 Lloyd. Provider: manish Freed a, 8 700 Awa PO Box (chief unspecifiedPostp Medical Omayra Chamberlain, 152, complaint) artum Follow-Up, Center [address] [place] [address], Suite Center [id number], 120, [place] 120, [place] Roberto Mejia, tel: [place], [address], [id number]. [place]. tel: tel: [phone] Bhavani Mejia Obesity, Apr-2 Sobbing Referring In Womens unspecified 3-201 Lloyd. Provider: Juliocesar ENG, 8 700 Awa PO Box [facility] Omayra Chamberlain, 1522, Center 700 [facility], Suite Center [id number], 120, Lopez 120, [place] Roberto Mejia, tel:2 [place], [address], [id number]. [place]. tel: tel: [phone] Bhavani Mejia Obesity, Mar-2 Sobbing Referring In Womens unspecified 6-201 Lloyd. Provider: Juliocesar ENG, 8 700 Awa PO Box Medical Cutler T, 1522, Center 700 [place], [facility], [facility], Suite Center [id number], 120, Lopez 120, [place] Roberto Mejia, tel: [place], [address], [id number]. [place]. tel: tel: [phone] Bhavani Mejia Suprvsn of preg Mar-0 Sobbing Referring In Womens w history of Lloyd. Provider: Juliocesar ENG, infertility, 8 700 Awa PO Box second trimester Medical Cutler T, 1522, Center 700 [employer] [facility], [facility], Suite Center [id number], 120, Lopez 120, [place] Roberto Mejia, tel: [place], [address], [id number]. [place]. tel: tel: [phone] Bhavani Mejia Suprvsn of preg Feb-0 Sobbing Referring In Womens w history of Lloyd. Provider: Juliocesar ENG, infertility, 8 700 Awa PO Box second Medical Cutler T, 1522, trimesterVelamen Center 700 [facility] insertion [facility], [facility], of umbilical Suite Center [id number], cord, unsp 120, Lopez 120, [place] trimester Roberto Mejia, tel: [place], [address], [id number]. [place]. tel: tel: [phone] Bhavani Mejia Suprvsn of preg Feb-0 Sobbing Referring In Womens Ultrasound w history of Lloyd. Provider: Juliocesar ENG, infertility, 8 700 Awa PO Box second trimester Medical Cutler T, 1522, Center 700 [employer] [facility], [facility], Suite Center [id number], 120, Lopez 120, [place] Roberto Mejia, tel: [place], [address], [id number]. [place]. tel: tel: [phone] Bhavani Mejia Suprvsn of preg [place]-0 Sobbing Referring In Womens w history of Lloyd. Provider: Health PA, infertility, 8 700 Awa PO Box second trimester Medical Cutler T, 1522, Center 700 [facility], Suite Center [id number], 120, Lopez 120, [place] Roberto Mejia, tel:+ [place], [address], [id number]. [place]. tel: tel: [phone] Associates Roberto Nov-0 Sobbing Referring In Womens 9-201 Lloyd. Provider: Juliocesar ENG, 7 700 Awa PO Box Medical Cut[place] T, 152, Center 700 [facility], Suite Center [id number], 120, Lopez 120, [place] Roberto Mejia, tel:+ [place], [address], [id number]. [place]. tel: tel: [phone] Associates Roberto Irregular Menses [place]-2 Cutler Referring In Womens 1-201 Awa. Provider: Juliocesar ENG, 7 700 Awa PO Box Medical [place] T, 152, Center [facility] Dr Kalpesh, [facility], 120, Center [id number], Roberto, [facility] 120, [place] Roberto COLEMAN, tel:[phone] [place], , [place]. [id number]. tel: tel: [phone] Bhavani Mejia Irregular May-2 Cutler Referring In Womens MensesFemale 5-201 Awa. Provider: Juliocesar ENG, infertility 7 700 Awa PO Box associated with Medical Cutler T, 152, anovulation Center [facility] Dr Kalpesh, [facility], 120, Center [id number], Roberto, [facility] 120, [place] Roberto COLEMAN, tel:[phone] [place], , [place]. [id number]. tel: tel: [phone] Associates Roberto Female May-2 Cutler Referring In Womens infertility, 2-201 Awa. Provider: Juliocesar ENG, unspecified 7 700 Awa PO Box Medical [place] T, 1522, Center [address], [facility], 120, Center [id number], [facility] 120, [place] Roberto COLEMAN, tel:[phone] [place], , . [id number]. tel: tel:[phone] Associates Roberto Abnormal finding May-0 Cutler In Womens of blood 8-201 Awa. Health PA, chemistry, 7 700 PO Box unspecified Medical 1522, Center Dr Kalpesh, [facility], 120, [id number], [facility], tel:[phone] , . tel: [phone] Associates Roberto Female May-0 Cutler Referring In Womens infertility, 2-201 Awa. Provider: Health VELASQUEZ, unspecifiedFemal 7 700 Awa PO Box e infertility, Medical Cutler T, 1522, unspecified Center [address] Dr [address]pesh, [facility], 120, [place] [id number], [facility] 120, Roberto COLEMAN, tel:[phone] [facility] , . [id number]. tel: tel:[phone] Family History Family Member Diagnosis Age At [...] Covered green party ID Authorization(s) [facility] [id number] [facility] [id number] [facility] [id number] Social History Type Description Quantity Date Captured Alcohol Use Details Unknown Caffeine Use Details Unknown Tobacco Use Status Unknown Smoking Status Never smoker Vital Signs Date / Height Weight BMI Pulse Blood Temperature Respiratory Body Head BMI Time: Rate Pressure Rate Surface Circumference percentile Area 64.00 111 138/92 98.30 2018 in /min mm[Hg] 10:02 AM Chief Complaint And Reason For Visit Unknown Chief Complaint And Reason For Visit Reason For Referral Reason For Referral Unknown Plan Of Care Date Type Action Status Goal Lifestyle education regarding completed diet Goal Lifestyle education regarding completed diet Goal Lifestyle education regarding completed diet Appointment Christy Luna BOOKED Future Order: Radiology Order OB Detailed Complete Ultrasound Ordered ([id number]) Date Type Problem Goal Intervention Status Start Date Unknown. History Of Present Illness Encounter Date Complaint History Of Present Illness incision check On 10/18/2017 she had a C/S (LT) of a 37 week 3 day female (Indra) weighing 6# 7 oz. (2928g) at [facility] by Lloyd Bhatia DO. Apgars: 7/9. She had no delivery complications. Her was complicated by Pre-eclampsia during in third. INC C/D/I. Wound vac removed Steri strips apllied. Anemia in highets 9.6 avg 8.6 last HgB in Hospital 7.0 pt asymptomatic taking BID Iron with Vit. C. Her last pap smear was WNL on [...]
--- OUTSIDE RECORDS SUMMARY | 2018-01-08 19:15 | External Medical Summary | Continuity of Care Document ---
:1990 Author Organization [facility] [facility] Address [address] [place], [place] [address] Phone Care Team Providers Name Role Phone Shital Arguello DO Unavailable Unavailable Allergies, Adverse Reactions, Alerts Substance Reaction Severity Status Sulfa (Sulfonamide Antibiotics) Unknown Active codeine Unknown Active Medications Medication Instructions Dosage Effective Dates Status Comments (start - stop) Aspir-81 81 mg take 1 tablet by 81 MG - Active tablet,delayed oral route every release day Vitamin take 1 tablet by Not Available - Active tablet oral route every day Problems Condition Effective Dates (start - stop) Clinical Status Suprvsn of preg w history of - infertility, second trimester Supervision of other high risk - pregnancies, second trimester Velamentous insertion of umbilical - cord, unsp trimester Obesity complicating , second - trimester Female infertility, unspecified Female infertility, unspecified Irregular [...] - trimester 20 weeks gestation of - Abnormal finding of [...] Visit Members Bhavani Harrisn of preg w b-0 Sobbing Referring In Womens history of Lloyd. Provider: Health VELASQUEZ, infertility, 8 700 Awa PO Box second Medical Cutler T, 1522, trimesterSupervis Center 700 [place], [facility] of other high [facility], [facility] [place], risk pregnancies, Suite Center [id number], second 120, Lopez 120, [place] trimesterVelament Roberto Mejia, tel: ous insertion of [place], umbilical cord, [address], [id number]. unsp [place]. tel: trimesterObesity tel: [phone] complicating [id number] , second trimester Associates Roberto Suprvsn of preg w Feb-0 Sobbing Referring In Womens Ultrasound history of Lloyd. Provider: Health PA, infertility, 8 700 Awa PO Box second Medical Cutler T, 1522, trimesterSupervis Center 700 [place], [facility] of other high Drive, Medical [place], risk pregnancies, Suite Center [id number], second 120, Lopez 120, [place] trimesterObesity Roberto Mejia, tel: complicating [place], [place], , second [address], [id number]. [id number] weeks [place]. tel: gestation of tel: [phone] Associates Roberto Suprvsn of preg w [place]-0 Sobbing Referring In Womens history of 4-201 Lloyd. Provider: Juliocesar ENG, infertility, 8 700 Awa PO Box second Medical Cutler T, 152, trimesterSupervis Center 700 [place], ion of other high [address], Medical [place], risk pregnancies, Suite Center [id number], second 120, Lopez 120, [place] trimesterObesity Roberto Mejia, tel: complicating [place], , second [address], [id number]. [id number] weeks [place]. tel: gestation of tel: [phone] Associates Roberto Suprvsn of preg w Dec-0 Sobbing Referring In Womens history of 7-201 Lloyd. Provider: Juliocesar ENG, infertility, 7 700 Awa PO Box first Medical Cutler T, 1521, trimesterSupervis Center 700 [place], ion of other high Drive, Medical [place], risk pregnancies, Suite Center [id number], first 120, Lopez 120, [place] trimesterObesity Roberto Mejia, tel: complicating [place], , first [address], [id number]. [email or web address] weeks [place]. tel: gestation of tel: [phone] Associates Roberto Suprvsn of preg w Nov-2 Sobbing Referring In Womens history of 0-201 Lloyd. Provider: Juliocesar ENG, infertility, 7 700 Awa PO Box first Medical Cutler T, 152, trimesterSupervis Center 700 [place], ion of other high Drive, Medical [place], risk pregnancies, Suite Center [id number], first [id number] 120, Lopez 120, [place] weeks gestation Roberto Mejia, tel:2 [place], [address], [id number]. [place]. tel: tel: [phone] Associates Roberto Suprvsn of preg w Nov-0 Sobbing Referring In Womens history of 9-201 Lloyd. Provider: Juliocesar ENG, infertility, 7 700 Awa PO Box first Medical Cut[place] T, 152, trimesterSupervis Center 700 [place], ion of other high [address], Medical [place], risk pregnancies, Suite Center [id number], first 120, Lopez 120, [place] trimesterObesity Roberto Mejia, tel: complicating [place], [place], , first [address], [id number]. trimester8 weeks [place]. tel: gestation of tel: [phone] Associates Roberto Irregular Menses [place]-2 Cutler Referring In Womens 1-201 Awa. Provider: Juliocesar ENG, 7 700 Awa PO Box Medical Cutler T, 152, Center [address] Dr [address]pesh, [facility] [place], 120, Center [id number], Roberto, [facility] 120, [place] Roberto COLEMAN, tel:[phone] [place], , [place]. [id number]. tel: tel: [phone] Associates Roberto Irregular May-2 Cutler Referring In Womens MensesFemale 5-201 Awa. Provider: Health VELASQUEZ, infertility 7 700 Awa PO Box associated with Medical Cutler T, 152, anovulation Center [facility] Dr Kalpesh, [facility], 120, Center [id number], Roberto, [facility] 120, [place] Roberto COLEMAN, tel:[phone] [place], , [place]. [id number]. tel: tel: [phone] Associates Roberto Female May-2 Cutler Referring In Womens infertility, 2-201 Awa. Provider: Juliocesar ENG, unspecified 7 700 Awa PO Box Medical Cutler T, 152, Center [address], [facility], 120, Center [id number], Roberto, [facility] 120, [place] Roberto COLEMAN, tel:[phone] [place], , [place]. [id number]. tel: tel:[phone] Associates Roberto Abnormal finding May-0 Cutler In Womens of blood 8-201 Awa. Health VELASQUEZ, chemistry, 7 700 PO Box unspecified Medical 152, Center Dr Kalpesh, [facility] [place], 120, [id number], Roberto, [facility], tel: [phone] , [place]. tel: [phone] Bhavani Mejia Female September- Omayra Referring In Womens infertility, 2-201 Awa. Provider: Juliocesar ENG, anabelaifiedFeaudi 7 700 Awa PO Box infertility, Medical Cutler T, 1522, unspecified Center [address] Dr Kalpesh, [facility], 120, [place] [id number], [facility] 120, Roberto COLEMAN, tel:[phone] [place], , [place]. [id number]. tel: tel: [phone] Family History Family Member Diagnosis Age At Onset Maternal Grandfather Cardiovascular Disease Maternal Grandfather Diabetes Maternal Grandmother Diabetes Maternal Grandmother Hypertension Father Kidney Disease Maternal Grandfather Lung Disease Immunizations Vaccine Date Status Comments Influenza, injectable, completed Source: New Immunization Record quadrivalent, preservative free, 3 yrs or older Payers Payer name Insurance type Covered alliance party ID Authorization(s) [facility] [id number] [facility] [id number] Social History Type Description Quantity Date Captured Alcohol Use Details No Caffeine Use Details Unknown Tobacco Use Status Unknown Smoking Status Never smoker Vital Signs Date / Height Weight BMI Pulse Blood Temperature Respiratory Body Head BMI Time: Rate Pressure Rate Surface Circumference percentile Area 198.80 34.1 137/72 -2018 lbs 2 mm[Hg] 3:38 kg/m PM eter (2) Chief Complaint And Reason For Visit Unknown Chief Complaint And Reason For Visit Reason For Referral Reason For Referral Unknown Plan Of Care Date Type Action Status Goal Lifestyle education regarding completed diet Appointment Christy Luna BOOKED Future Order: Radiology Order OB Detailed Complete Ultrasound Ordered ([id number]) Date Type Problem Goal Intervention Status Start [...]
--- OUTSIDE RECORDS SUMMARY | 2018-01-08 19:15 | External Medical Summary | Continuity of Care Document ---
:1990 Author Organization [facility] Address [address] [place], [place] [id number] Phone Care Team Providers Name Role Phone [...] insertion of umbilical - cord, third trimester Female infertility, unspecified Female infertility, unspecified Suprvsn [...] Sobbing Referring In Womens other high risk [place]. Provider: Health [place], pregnancies, 8 700 Awa PO Box third Medical Cutler T, 152, trimesterVelament Center [address], ous insertion of [place], Medical [place], umbilical cord, Suite Center [id number], third [id number] 120, [place] 120, [place] weeks gestation Roberto Mejia, [place]: [place], [address], [id number]. [place]. tel: tel: [phone] Bhavani Mejia Supervision of Sobbing Referring In Womens Ultrasound other high risk [place]. Provider: Health PA, pregnancies, 8 700 Awa PO Box third Medical Cutler T, 152, trimesterGestatio Center [address], nal htn w/o Drive, Medical [place], significant Suite Center [id number], proteinuria, 120, [place] 120, [place] third Roberto Mejia, tel: trimester[place] [address], [id number]. umbilical cord, [place]. tel: third [id number] tel: [phone] weeks gestation [id number] of [facility] Gestational htn May-0 Sobbing Referring In Womens w/o significant 1-201 [place]. Provider: Juliocesar ENG, proteinuria, 8 700 Awa PO Box third trimester Medical Cutler T, 152, Center 700 [facility], Suite Center [id number], 120, [place] 120, [place] Roberto Mejia, tel: [place], [address], [id number]. [place]. tel: tel: [phone] Associates Roberto Suprvsn of preg w Apr-3 Sobbing Referring In Womens history of 0-201 [place]. Provider: Juliocesar ENG, infertility, 8 700 Awa PO Box third Medical Cutler T, 1521, trimesterSupervis Center [address] [place] [address], ion of other [facility], risk pregnancies, Suite Center [id number], third 120, [place] 120, [place] trimesterGestatio Roberto Mejia, tel: nal htn w/[place], significant [address], [id number]. proteinuria, [place]. tel: third [email or web address] tel: [phone] weeks gestation [id number] of Associates Roberto Obesity, Apr-2 Sobbing Referring In Womens unspecifiedSuprvs 3-201 [place]. Provider: Juliocesar ENG, n of preg w 8 700 Awa PO Box history of Medical Cutler T, 1521, infertility, Center [address] [place] [address], trimesterSupervis Suite Center [id number], ion of other [facility] 120, [place] 120, [place] risk pregnancies, Roberto Mejia, tel: third [place], trimesterVelament [address], [id number]. ous insertion of [place]. tel: umbilical cord, tel: [phone] third trimester [id number] Associates Roberto Velamentous Apr-2 Sobbing Referring In Womens Ultrasound insertion of 3-201 [place]. Provider: Juliocesar ENG, umbilical cord, 8 700 Awa PO Box third Medical Cutler T, 152, trimesterObesity Center [address], [address], Medical [place], , third Suite Center [id number], [email or web address] weeks 120, [place] 120, [place] gestation of Roberto Roberto, tel:+ [place], [address], [id number]. [place]. tel: tel: [phone] Associates Roberto Harrisn of preg w Apr-0 Sobbing Referring In Womens history of [place]. Provider: Health PA, infertility, 8 700 Awa PO Box third Medical Cutler T, 1522, trimesterSupervis Center [address], ion of other high Drive, Medical [place], risk pregnancies, Suite Center [id number], third 120, [place] 120, [place] trimesterVelament Roberto Mejia, tel: ous insertion [place], umbilical cord, [address], [id number]. third [id number] [place]. tel: weeks gestation tel: [phone] of [phone] Associates Roberto Obesity, Mar-2 Sobbing Referring In Womens unspecifiedSuprvs [place]. Provider: Health PA, n of preg w 8 700 Awa PO Box history of Medical Cutler T, 1522, infertility, Center [address], third Drive, Medical [place], trimesterSupervis Suite Center [id number], ion of other high 120, [place] 120, [place] risk pregnancies, Mejia Roberto, tel: third [id number] [place], [place], weeks gestation [address], [id number]. of [place]. tel: tel: [phone] Bhavani Mejia Supervision of Mar-2 Sobbing Referring In Womens Ultrasound other high risk [place]. Provider: Health PA, pregnancies, 8 700 Awa PO Box third Medical Cutler T, 1522, trimesterVelament Center [address], ous insertion of Drive, Medical [place], umbilical cord, Suite Center [id number], third 120, [place] 120, [place] trimesterObesity Roberto Mejia, tel:+ complic[place], [place], , third [address], [id number]. [id number] weeks [place]. tel: gestation of tel: [phone] Associates Roberto Suprvsn of preg w Mar-0 Sobbing Referring In Womens history of 1-201 [place]. Provider: Juliocesar ENG, infertility, 8 700 Awa PO Box second Medical Cutler T, 152, trimesterSupervis Center [address], [facility] of other high Drive, Medical [place], risk pregnancies, Suite Center [id number], second 120, [place] 120, [place] trimesterVelament Roberto Mejia, tel:+ ous insertion [place], [place], umbilical cord, [address], [id number]. second [place]. tel: trimesterObesity tel: [phone] complicating [id number] , second trimester Associates Roberto Suprvsn of preg w Feb-0 Sobbing Referring In Womens history of 1-201 [place]. Provider: Juliocesar ENG infertility, 8 700 Awa PO Box second Medical Cutler T, 152, trimesterSupervis Center [address], [facility] of other high Drive, Medical [place], risk pregnancies, Suite Center [id number], second 120, [place] 120, [place] trimesterVelament Roberto Mejia, tel: ous insertion [place], [place], umbilical cord, [address], [id number]. unsp [place]. tel: trimesterObesity tel: [phone] complicating [id number] , second trimester Associates Roberto Suprvsn of preg w Feb-0 Sobbing Referring In Womens Ultrasound history of 1-201 [place]. Provider: Juliocesar ENG, infertility, 8 700 Awa PO Box second Medical Cutler T, 1521, trimesterSupervis Center [address], [facility] of other high Drive, Medical [place], risk pregnancies, Suite Center [id number], second 120, [place] 120, US trimesterObesity Roberto Mejia, tel: complicating [place], [place], , second [address], [id number]. [id number] weeks [place]. tel: gestation of tel: [phone] Associates Roberto Suprvsn of preg w [place]-0 Sobbing Referring In Womens history of 4-201 [place]. Provider: Juliocesar ENG infertility, 8 700 Awa PO Box second Medical Cutler T, 1522, trimesterSupervis Center [address], ion of other high Drive, Medical [place], risk pregnancies, Suite Center [id number], second 120, [place] 120, US trimesterObesity Roberto Mejia, tel:+ [place], [place], , second [address], [id number]. [id number] weeks [place]. tel: gestation of tel: [phone] Associates Roberto Suprvsn of preg w Dec-0 Sobbing Referring In Womens history of 7-201 [place]. Provider: Health PA, infertility, 7 700 Awa [place] first Medical Cutler T, 1521, trimesterSupervis Center [address], ion of other high Drive, Medical [place], risk pregnancies, Suite Center , first 120, [place] 120, [place] trimesterObesity Roberto Mejia, tel: complic[place], [place], , first [address], [id number]. weeks [place]. tel: gestation of tel: [phone] Associates Roberto Suprvsn of preg w Nov-2 Sobbing Referring In Womens history of 0-201 [place]. Provider: Health PA, infertility, 7 700 Awa [place] first Medical Cutler T, 152, trimesterSupervis Center [address], ion of other high Drive, Medical [place], risk pregnancies, Suite Center [id number], first [email or web address] 120, [place] 120, [place] weeks gestation Roberto Mejia, tel: [place], [address], [id number]. [place]. tel: tel: [phone] Associates Roberto Suprvsn of preg w Nov-0 Sobbing Referring In Womens history of 9-201 [place]. Provider: Health PA, infertility, 7 700 Awa PO Nacho first Medical Cutler T, 152, trimesterSupervis Center [address], ion of other high Drive, Medical [place], risk pregnancies, Suite Center [id number], first 120, [place] 120, US trimesterObesity Roberto Mejia, tel:+ complicating [place], [place], , first [address], [id number]. trimester8 weeks [place]. tel: gestation of tel: [phone] Associates Roberto Irregular Menses [place]-2 Cutler Referring In Womens 1-201 [place]. Provider: Juliocesar ENG, 7 700 Awa PO Box Medical Cutler T, 1522, Center [address] Dr Kalpesh, [facility], 120, [place] [id number], Roberto, [facility] 120, Roberto COLEMAN, tel:[phone] [place], , [place]. [id number]. tel: tel: [phone] Associates Roberto Irregular May-2 Cutler Referring In Womens MensesFemale 5-201 [place]. Provider: Juliocesar ENG, infertility 7 700 Awa PO Box associated with Medical Cutler T, 152, anovulation Center [facility] Dr Kalpesh, [facility], 120, [place] [id number], [facility], Roberto COLEMAN, tel:[phone] [place], , [place]. [id number]. tel: tel: [phone] Associates Roberto Female May-2 Cutler Referring In Womens infertility, 2-201 [place]. Provider: Juliocesar ENG, unspecified 7 700 Awa PO Box Medical Cutler T, 152, Center [address] Dr Kalpesh, [facility], 120, [place] [id number], Roberto, [facility] 120, [place] Roberto COLEMAN, tel:[phone] [facility] , [place]. [id number]. tel: tel: [phone] Associates Roberto Abnormal finding May-0 Cutler In Womens of blood 8-201 Awa. Health VELASQUEZ, chemistry, 7 700 PO Box unspecified Medical 152, [place] Dr Kalpesh, [facility] [place], 120, [id number], Roberto, JARED, tel: [phone] , [place]. tel: [phone] Associates Roberto Female May-0 Cutler Referring In Womens infertility, 2-201 Awa. Provider: Juliocesar ENG, unspecifiedFemale 7 700 Awa PO Box infertility, Medical Cutler T, 1522, unspecified Center [address] Dr Kalpesh, [facility], 120, [place] [id number], Roberto, [facility] 120, US JARED Roberto, tel:3 [phone] JARED, 895162 , [place]. [id number]. tel: tel: [phone] Family History Family Member Diagnosis Age At Onset Maternal Grandfather Cardiovascular Disease Maternal Grandfather Diabetes Maternal Grandmother Diabetes Maternal Grandmother Hypertension Father Kidney Disease Maternal Grandfather Lung Disease Immunizations Vaccine Date Status Comments Tdap completed Source: New Immunization Record Influenza, injectable, completed Source: New Immunization Record quadrivalent, preservative free, 3 yrs or older Payers Payer name Insurance type Covered republican ID Authorization(s) [facility] [id number] [facility] [id number] [facility] [id number] Social History Type Description Quantity Date Captured Alcohol Use Details No Caffeine Use Details Unknown Tobacco Use Status Unknown Smoking Status Never smoker Vital Signs Date / Height Weight BMI Pulse Blood Temperature Respiratory Body Head BMI Time: Rate Pressure Rate Surface Circumference percentile Area 215.10 36.9 148/2018 lbs 2 mm[Hg] 2:42 kg/m PM eter (2) Chief Complaint And Reason For Visit Unknown Chief Complaint And Reason For Visit Reason For Referral Reason For Referral Unknown Plan Of Care Date Type Action Status Goal Lifestyle education regarding completed diet Appointment Christy Luna BOOKED Appointment Christy Luna BOOKED Appointment Christy Luna BOOKED Appointment Christy Luna BOOKED Future Order: Radiology Order OB Detailed Complete Ultrasound Ordered ([id number]) Future Order: Radiology Order Ultrasound OB Follow-up ([id number]) Ordered Future Order: Radiology Order Biophysical Profile without NST Ordered ([id number]) Future Order: Radiology Order Ultrasound OB Follow-up ([id number]) Ordered Future Order: Radiology Order Ultrasound OB Follow-up ([id number]) Ordered Future Order: Radiology Order Biophysical Profile without NST Ordered ([id number]) Date Type Problem Goal Intervention Status Start [...]
--- OUTSIDE RECORDS SUMMARY | 2018-01-08 19:15 | External Medical Summary | Continuity of Care Document ---
:1990 Author Organization [facility] [employer] [facility] Address [address] [place], [place] [phone] Phone Care Team Providers Name Role Phone [...] Members Bhavani Mejia Suprvsn of preg w Aug- Sobbing Referring In Womens history of 9-201 [place]. Provider: Health PA, infertility, 8 700 Awa PO [facility] Medical Omayra T, 1522, [facility] [address] [place], [facility] of other high Drive, Medical [place], risk pregnancies, Suite Center , third 120, [place] 120, [place] trimesterVelament Roberto Mejia, tel: ous insertion [place], umbilical cord, [address], [id number]. third [place]. tel:316 weeks gestation tel: [phone] of [phone] Associates Roberto Mar-2 Sobbing In Womens [place]. Health PA, 8 700 PO Box Medical 1522, Center [place], [facility], [place], Suite [id number], 120, [place] Roberto, [place]: [place], [address], [place]. tel: [phone] Associates Roberto Obesity, Mar-2 Sobbing Referring In Womens unspecifiedSuprvs [place]. Provider: Health VELASQUEZ, n of preg w 8 700 Awa PO Box history of Medical Cutler T, 152, infertility, Center 700 [place], [facility], [facility], trimesterSupervis Suite Center [id number], ion of other high 120, [place] 120, [place] risk pregnancies, Roberto Mejia, tel:2 third [id number] [place], JARED, weeks gestation [address], [id number]. of [place]. tel: tel: [phone] Bhavani Mejia Supervision of Mar-2 Sobbing Referring In Womens Ultrasound other high risk [place]. Provider: Health PA, pregnancies, 8 700 Awa PO Box third Medical Cutler T, 152, trimesterVelament Center [address] [place], ous insertion of [employer], [email or web address] [place], umbilical cord, Suite Center [id number], third 120, [place] 120, [place] trimesterObesity Roberto Mejia, tel:2 complicating [place], [place], , third [address], [id number]. [id number] weeks [place]. tel: gestation of tel: [phone] Associates Roberto Suprvsn of preg w Mar-0 Sobbing Referring In Womens history of [place]. Provider: Health PA, infertility, 8 700 Awa PO Box second Medical Cutler T, 1522, trimesterSupervis Center [address] [place], ion of other high Drive, Medical [place], risk pregnancies, Suite Center [id number], second 120, [place] 120, US trimesterVelament Roberto Mejia, tel: ous insertion of [place], [place], umbilical cord, [address], [id number]. second [place]. tel: trimesterObesity tel: [phone] complicating [id number] , second trimester Associates Roberto Suprvsn of preg w Feb-0 Sobbing Referring In Womens history of 1-201 [place]. Provider: Health PA, infertility, 8 700 Awa PO Box second Medical Cutler T, 152, trimesterSupervis Center [address] [place], ion of other high Drive, Medical [place], risk pregnancies, Suite Center , second 120, [place] 120, US trimesterVelament Roberto Mejia, tel: ous insertion of [place], [place], umbilical cord, [address], [id number]. unsp [place]. tel: trimesterObesity tel: [phone] complicating [id number] , second trimester Associates Roberto Suprvsn of preg w Feb-0 Sobbing Referring In Womens Ultrasound history of 1-201 [place]. Provider: Health PA, infertility, 8 700 Awa PO Box second Medical Cutler T, 152, trimesterSupervis Center [address] [place], ion of other high Drive, Medical [place], risk pregnancies, Suite Center [id number], second 120, [place] 120, [place] trimesterObesity Roberto Mejia, tel: complicating [place], [place], , second [address], [id number]. weeks [place]. tel: gestation of tel: [phone] Associates Roberto Suprvsn of preg w [place]-0 Sobbing Referring In Womens history of 4-201 [place]. Provider: Health PA, infertility, 8 700 Awa PO Box second Medical Cutler T, 152, trimesterSupervis Center [address] [place], ion of other high Drive, Medical [place], risk pregnancies, Suite Center [id number], second 120, [place] 120, [place] trimesterObesity Roberto Mejia, tel:+ complicating [place], [place], , second [address], [id number]. [email or web address] weeks [place]. tel: gestation of tel: [phone] Associates Roberto Suprvsn of preg w Dec-0 Sobbing Referring In Womens history of 7-201 [place]. Provider: Juliocesar ENG, infertility, 7 700 Awa PO Box first Medical Cutler T, 152, trimesterSupervis Center [address] [place], ion of other high Drive, Medical [place], risk pregnancies, Suite Center [id number], first 120, [place] 120, [place] trimesterObesity Roberto Mejia, tel: complicating [place], [place], , first [address], [id number]. [id number] weeks [place]. tel: gestation of tel: [phone] Associates Roberto Suprvsn of preg w Nov-2 Sobbing Referring In Womens history of 0-201 [place]. Provider: Juliocesar ENG, infertility, 7 700 Awa PO Box first Medical Cutler T, 152, trimesterSupervis Center [address] [place], [facility] of other high Drive, [facility] [place], risk pregnancies, Suite Center [id number], first [id number] 120, [place] 120, [place] weeks gestation Roberto Mejia, [place]: [place], [address], [id number]. [place]. tel: tel: [phone] Associates Roberto Suprvsn of preg w Nov-0 Sobbing Referring In Womens history of 9-201 [place]. Provider: Juliocesar ENG, infertility, 7 700 Awa PO Box first Medical Cutler T, 152, trimesterSupervis Center [address] [place], [facility] of other high Drive, [facility] [place], risk pregnancies, Suite Center [id number], first 120, [place] 120, [place] trimesterObesity Roberto Mejia, tel: complicating [place], [place], , first [address], [id number]. trimester8 weeks [place]. tel: gestation of tel: [phone] Associates Roberto Irregular Menses [place]-2 Cutler Referring In Womens 1-201 Awa. Provider: Juliocesar ENG, 7 700 Awa PO Box Medical Cutler T, 152, Center [address] Dr Kalpesh, [facility] [place], 120, Center [id number], [facility] 120, [place] Roberto COLEMAN, tel:[phone] [place], , [place]. [id number]. tel: tel:+ [phone] Associates Roberto Irregular May-2 Cutler Referring In Womens MensesFemale 5-201 Awa. Provider: Health VELASQUEZ, infertility 7 700 Awa PO Box associated with Medical Cutler T, 152, anovulation Center [facility] Dr Kalpesh, [facility] [place], 120, Center [id number], [facility] 120, Roberto COLEMAN, tel:[phone] [place], , [place]. [id number]. tel: tel:+ [phone] Associates Roberto Female May-2 Cutler Referring In Womens infertility, 2-201 Awa. Provider: Health PA, unspecified 7 700 Awa PO Box Medical Cutler T, 152, Center [facility] Dr Kalpesh, [facility] [place], 120, Center [id number], [facility] , [place] Roberto COLEMAN, tel:[phone] [place], , [place]. [id number]. tel: tel:+[phone] [phone] Associates Roberto Abnormal finding May-0 Cutler In Womens of blood 8-201 Awa. Health VELASQUEZ, chemistry, 7 700 PO Box unspecified Medical 152, Center Dr Kalpesh, [facility] [place], 120, [id number], Roberto, JARED, tel:+ [phone] , [place]. tel: [phone] Associates Roberto Female May-0 Cutler Referring In Womens infertility, 2-201 Awa. Provider: Health VELASQUEZ, unspecifiedFemale 7 700 Awa PO Box infertility, Medical Cutler T, 152, unspecified Center [address] Dr Kalpesh, [facility] [place], 120, Center [id number], [facility] 120, [place] Roberto COLEMAN, tel:[phone] [place], , [place]. [id number]. tel: tel: [phone] Family History Family Member Diagnosis Age At Onset Maternal Grandfather Cardiovascular Disease Maternal Grandfather Diabetes Maternal Grandmother Diabetes Maternal Grandmother Hypertension Father Kidney Disease Maternal Grandfather Lung Disease Immunizations Vaccine Date Status Comments Tdap completed Source: New Immunization Record Influenza, injectable, completed Source: New Immunization Record quadrivalent, preservative free, 3 yrs or older Payers Payer name Insurance type Covered republican ID Authorization(s) [facility] [id number] [facility] [id number] [facility] [id number] Social History Type Description Quantity Date Captured [...] Radiology Order OB Detailed Complete Ultrasound Ordered ([id number]) Future Order: Radiology Order Ultrasound OB Follow-up ([id number]) Ordered Date Type Problem Goal Intervention Status [...]
--- OUTSIDE RECORDS SUMMARY | 2018-01-08 19:15 | External Medical Summary | Continuity of Care Document ---
:1990 Author Organization [email or web address] Address [address] [place], [place] [id number] Phone Care Team Providers Name Role Phone [...] - trimester 28 weeks gestation of - Female [...] third trimester 30 weeks gestation of - Abnormal finding of blood chemistry, unspecified Asthma Active Depression Active Procedures Procedure Date Ultrasnd preg uterus, flwup/repeat Results Test Name Date and Time Measure Units Reference Range Abnormal Flag Comments Unknown Advance Directives Directive Yes / No Effective Date File Name Unknown Encounters Encounter Practice Location Reason(s) Diagnoses Date Provider Care Team Description For Visit Members Bhavani Mejia Suprvsn of preg w Apr-0 Sobbing Referring In Womens history of 9-201 Lloyd. Provider: Health PA, infertility, 8 700 Awa PO [facility], [facility], [facility]Supervis Center [address], ion of other [address], Medical [place], risk pregnancies, Suite Center [id number], third 120, [place] 120, [place] trimesterVelament Roberto Mejia, tel: ous insertion of [place], [place], umbilical cord, [address], [id number]. third [email or web address] [place]. tel:316 weeks gestation tel: [phone] of [id number] Associates Roberto Obesity, Mar-2 Sobbing Referring In Womens unspecifiedSuprvs Lloyd. Provider: Health PA, n of preg w 8 700 Awa PO Box history of Medical Cutler T, 1522, infertility, Center [address], [address], Medical [place], trimesterSupervis Suite Center [id number], ion of other high 120, Lopez 120, [place] risk pregnancies, Roberto Mejia, tel: third [email or web address] [place], [place], weeks gestation [address], [id number]. of [place]. tel: tel: [phone] Associates Roberto Supervision of Mar-2 Sobbing Referring In Womens Ultrasound other high risk Lloyd. Provider: Health PA, pregnancies, 8 700 Awa PO Box third Medical Cutler T, 152, trimesterVelament Center [address], ous insertion of Drive, Medical [place], umbilical cord, Suite Center [id number], third 120, Lopez 120, [place] trimesterObesity Roberto Mejia, tel:+ complicating [place], [place], , third [address], [id number]. [id number] weeks [place]. tel: gestation of tel: [phone] Associates Roberto Suprpapan of preg w Mar-0 Sobbing Referring In Womens history of Lloyd. Provider: Health PA, infertility, 8 700 Awa PO Box second Medical [place] T, 1522, trimesterSupervis Center [address], ion of other [address] Drive, Medical [place], risk pregnancies, Suite Center [id number], second 120, [place] 120, [place] trimesterVelament Roberto Mejia, tel: ous insertion of [place], [place], umbilical cord, [address], [id number]. second [place]. tel: trimesterObesity tel: [phone] complicating [id number] , second trimester Associates Roberto Suprvsn of preg w Feb-0 Sobbing Referring In Womens history of 1- Lloyd. Provider: Juliocesar ENG, infertility, 8 700 Awa PO Box second Medical [place] T, 1522, trimesterSupervis Center [address], ion of other [address] Drive, Medical [place], risk pregnancies, Suite Center [id number], second 120, Lopez 120, [place] trimesterVelament Roberto Mejia, tel: ous insertion of [place], [place], umbilical cord, [address], [id number]. unsp [place]. tel: trimesterObesity tel: [phone] complicating [id number] , second trimester Associates Roberto Suprvsn of preg w Feb-0 Sobbing Referring In Womens Ultrasound history of 1- Lloyd. Provider: Juliocesar ENG, infertility, 8 700 Awa PO Box second Medical [place] T, 1522, trimesterSupervis Center [address], [facility] of other high Drive, Medical [place], risk pregnancies, Suite Center [id number], second 120, [place] 120, [place] trimesterObesity Roberto Mejia, tel: complicating [place], [place], , second [address], [id number]. [email or web address] weeks [place]. tel: gestation of tel: [phone] Associates Roberto Suprvsn of preg w [place]-0 Sobbing Referring In Womens history of 4- Lloyd. Provider: Juliocesar ENG, infertility, 8 700 Awa PO Box second Medical [place] T, 1522, trimesterSupervis Center [address], ion of other [address] Drive, Medical [place], risk pregnancies, Suite Center [id number], second 120, [place] 120, [place] trimesterObesity Roberto Mejia, tel: complicating [place], [place], , second [address], [id number]. weeks [place]. tel: gestation of tel: [phone] Associates Roberto Suprvsn of preg w Dec-0 Sobbing Referring In Womens history of 7-201 Lloyd. Provider: Health PA, infertility, 7 700 Awa PO Box first Medical [place] T, 152, trimesterSupervis Center [address], [facility] of other high Drive, Medical [place], risk pregnancies, Suite Center [id number], first 120, [place] 120, [place] trimesterObesity Roberto Mejia, tel:+ complicating [place], [place], , first [address], [id number]. [email or web address] weeks [place]. tel: gestation of tel: [phone] Associates Roberto Suprvsn of preg w Nov-2 Sobbing Referring In Womens history of 0-201 Lloyd. Provider: Juliocesar PA, infertility, 7 700 Awa PO Nacho first Medical [place] T, 152, trimesterSupervis Center [address], [facility] of other high Drive, Medical [place], risk pregnancies, Suite Center [id number], first [email or web address] 120, Lopez 120, [place] weeks gestation Roberto Mejia, tel: [place], [address], [id number]. [place]. tel: tel: [phone] Bhavani Mejia Suprvsn of preg w Nov-0 Sobbing Referring In Womens history of 9-201 Lloyd. Provider: Juliocesar ENG, infertility, 7 700 Awa [place] first Medical [place] T, 152, trimesterSupervis Center [address], [facility] of other high Drive, [facility] [place], risk pregnancies, Suite Center [id number], first 120, Lopez 120, [place] trimesterObesity Roberto Mejia, tel: complicating [place], [place], , first [address], [id number]. trimester8 weeks [place]. tel: gestation of tel: [phone] Bhavani Mejia Irregular Menses Oct-2 Cutler Referring In Womens 1-201 Awa. Provider: Juliocesar ENG, 7 700 Awa PO Box Medical [place] T, 152, Center [address]esh, [facility] Medical [place], 120, Center [id number], Roberto, Lopez 120, [place] Roberto COLEMAN, tel:[phone] [place], , [place]. [id number]. tel: tel: [phone] Associates Roberto Irregular May-2 Cutler Referring In Womens MensesFemale 5-201 Awa. Provider: Health VELASQUEZ, infertility 7 700 Awa PO Box associated with Medical Cut[place] T, 1522, anovulation Center [address]esh, [facility] [place], 120, [place] , [facility] 120, Roberto COLEMAN, tel: [phone] [place], , [place]. [id number]. tel: tel:+ [phone] Associates Roberto Female May-2 Cutler Referring In Womens infertility, 2-201 Awa. Provider: Juliocesar ENG, unspecified 7 700 Awa PO Box Medical [place] T, 1522, Center [address], [facility], 120, [place] [id number], [place] [address], Roberto COLEMAN, tel:[phone] [facility] , . [id number]. tel: tel: [phone] Associates Roberto Abnormal finding May-0 Cutler In Womens of blood 8-201 Awa. Health VELASQUEZ, chemistry, 7 700 PO Box unspecified Medical 1522, Center Dr Kalpesh, [facility] [place], 120, [id number], Mejia, JARED, tel: [phone] , . tel: [phone] Associates Roberto Female May-0 Cutler Referring In Womens infertility, 2-201 Awa. Provider: Health VELASQUEZ, unspecifiedFemale 7 700 Awa PO Box infertility, Medical Cut[place] T, 1522, unspecified Center [address], [facility], 120, [place] [id number], [facility] 120, Roberto COLEMAN, tel: [phone] [facility] , . [id number]. tel: tel:[phone] Family History Family Member Diagnosis Age At Onset Maternal Grandfather Cardiovascular Disease Maternal Grandfather Diabetes Maternal Grandmother Diabetes Maternal Grandmother Hypertension Father Kidney Disease Maternal Grandfather Lung Disease Immunizations Vaccine Date Status Comments Tdap completed Source: New Immunization Record Influenza, injectable, completed Source: New Immunization Record quadrivalent, preservative free, 3 yrs or older Payers Payer name Insurance type Covered democrat ID Authorization(s) [place] [id number] [place] [id number] [place] [id number] Social History Type Description Quantity Date Captured [...] Future Order: Radiology Order Ultrasound OB Follow-up ([id number]) Ordered Future Order: Radiology Order OB Detailed Complete Ultrasound Ordered ([id number]) Date Type Problem Goal Intervention Status Start [...]
--- OUTSIDE RECORDS SUMMARY | 2018-01-08 19:15 | External Medical Summary | Continuity of Care Document ---
:1990 Author Organization [facility] Address [address] [place], [place] [id number] Phone Care Team Providers Name Role Phone [...] Team Description For Visit Members Bhavani Mejia Oct-3 Omayra In Womens 0-201 Awa. Health VELASQUEZ, 7 700 [facility] 1522, [place] Dr Kalpesh, [facility], 120, [id number], tel:[phone] [address] , [place]. tel: [phone] Bhavani Mejia Irregular Menses Oct-2 Cutler Referring In Womens 1-201 Awa. Provider: Juliocesar ENG, 7 700 [facility] Medical Cut[place] T, 1522, [place] [address], [facility], 120, [place] [id number], Roberto [place] [address], JARED, Roberto, tel:[phone] [facility] , [place]. [id number]. tel: tel: [phone] Associates Roberto Irregular May-2 Cutler Referring In Womens MensesFemale 5-201 Awa. Provider: Health PA, infertility 7 700 Awa PO Box associated with Medical [place] T, 1522, anovulation Center [address]pesh, [facility], 120, [place] , [facility] 120, JARED, Roberto, tel: [phone] [place], , [place]. [id number]. tel: tel:+ [phone] Associates Roberto Female May-2 Cutler Referring In Womens infertility, 2-201 Awa. Provider: Juliocesar ENG, unspecified 7 700 Awa PO Box Medical [place] T, 1522, Center [address], [facility], 120, [place] [id number], Roberto [facility] 120, Roberto COLEMAN, tel:[phone] [facility] , [place]. [id number]. tel: tel:[phone] Associates Roberto Abnormal finding May-0 Cutler In Womens of blood 8-201 Awa. Health VELASQUEZ, chemistry, 7 700 PO Box unspecified Medical 1522, Center Dr Kalpesh, [facility] [place], 120, [id number], Mejia, JARED, tel: [phone] , [place]. tel: [phone] Associates Roberto Female May-0 Cutler Referring In Womens infertility, 2-201 Awa. Provider: Health VELASQUEZ, unspecifiedFemale 7 700 Awa PO Box infertility, Medical Cut[place] T, 1522, unspecified Center [address], [facility], 120, [place] [id number], Roberto [facility] 120, Roberto COLEMAN, tel:[phone] [place], , . [id number]. tel: tel:[phone] Family History Family Member Diagnosis Age At Onset Maternal Grandfather Cardiovascular Disease Maternal Grandfather Diabetes Maternal Grandmother Diabetes Maternal Grandmother Hypertension Father Kidney Disease Maternal Grandfather Lung Disease Immunizations Vaccine Date Status Comments Unknown Payers Payer name Insurance type Covered constitution party ID Authorization(s) ZEESHAN JARED BL [id number] Social History Type Description Quantity Date Captured [...]
--- OUTSIDE RECORDS SUMMARY | 2018-01-08 19:15 | External Medical Summary | Continuity of Care Document ---
:1990 Author Organization [facility] Address [address] [place], [place] [id number] Phone Care Team Providers Name Role Phone [...] Effective Dates (start - stop) Clinical Status Gestational htn w/o significant - proteinuria, third trimester Velamentous insertion of umbilical - cord, third trimester Obesity complicating , third - trimester 35 weeks gestation of - Female infertility, unspecified [...] Active Depression Active Active Procedures Procedure Date biophys prfl w/o nstress test Results Test Name Date and Time Measure Units Reference Range Abnormal Flag Comments Unknown Advance Directives Directive Yes / No Effective Date File Name Unknown Encounters Encounter Practice Location Reason(s) Diagnoses Date Provider Care Team Description For Visit Members Bhavani Mejia Anemia, [place]-0 Sobbing Referring In Womens unspecifiedAnemia [place]. Provider: Juliocesar ENG, , 8 700 Awa PO Box unspecifiedPostpa Medical Cutler T, 1522, rtum Follow-Up, Center 700 [place], [facility], Suite Center [id number], 120, [place] 120, [place] Roberto Mejia, tel: [place], [address], [id number]. [place]. tel: tel: [phone] Bhavani Mejia Gestational htn Sobbing Referring In Womens Ultrasound w/o significant [place]. Provider: Juliocesar ENG, proteinuria, 8 700 Awa PO Box third Medical Cut[place] T, 1522, trimesterVelament Center 700 [place], ous insertion of [facility], umbilical cord, Suite Center [id number], third 120, [place] 120, [place] trimesterObesity Roberto Mejia, tel: complicating [place], [place], , third [address], [id number]. [email or web address] weeks [place]. tel: gestation of tel: [phone] Bhavani Mejia Obesity, Apr-2 Sobbing Referring In Womens unspecified [place]. Provider: Juliocesar EGN, 8 700 Awa PO Box Medical Cut[place] T, 1522, Center 700 [facility], Suite Center [id number], 120, Lopez 120, [place] Roberto Mejia, tel: [place], [address], [id number]. [place]. tel: tel: [phone] Bhavani Mejia Obesity, Mar-2 Sobbing Referring In Womens unspecified [place]. Provider: Juliocesar ENG, 8 700 Awa PO Box Medical Cut[place] T, 1521, Center 700 [facility], [facility], Suite Center [id number], 120, Lopez 120, [place] Roberto Mejia, tel: [place], [place], 114, [id number]. [place]. tel: tel: [phone] Bhavani Mejia Suprvsn of preg w Mar-0 Sobbing Referring In Womens history of 1-201 Lloyd. Provider: Juliocesar ENG, infertility, 8 700 Awa PO Box second trimester Medical Cut[place] T, 1521, Center 700 [facility], Suite Center [id number], 120, Lopez 120, [place] Roberto Mejia, [place]: [place], [address], [id number]. [place]. tel: tel: [phone] Bhavani Mejia Suprvsn of preg w Feb-0 Sobbing Referring In Womens history of 1- Lloyd. Provider: Juliocesar ENG, infertility, 8 700 Awa PO Box second Medical Cutler T, 1521, trimesterVelament Center [address] [place] [address], ous insertion of [facility], umbilical cord, Suite Center [id number], unsp trimester 120, Lopez 120, [place] Roberto Mejia, tel: [place], [address], [id number]. [place]. tel: tel: [phone] Bhavani Mejia Suprvsn of preg w Feb-0 Sobbing Referring In Womens Ultrasound history of 1-201 Lloyd. Provider: Juliocesar ENG, infertility, 8 700 Awa PO Box second trimester Medical Cutler T, 1521, Center 700 [facility], Suite Center [id number], 120, Lopez 120, [place] Roberto Mejia, tel: [place], [place], 114, [id number]. [place]. tel: tel: [phone] Bhavani Mejia Suprvsn of preg w [place]-0 Sobbing Referring In Womens history of 4-201 Lloyd. Provider: Juliocesar ENG, infertility, 8 700 Awa PO Box second trimester Medical Cutler T, 1521, Center 700 [facility], Suite Center [id number], 120, Lopez 120, [place] Roberto Mejia, [place]: [place], [address], [id number]. [place]. tel: tel: [phone] Bhavani Mejia Nov-0 Sobbing Referring In Womens 9-201 Lloyd. Provider: Juliocesar ENG, 7 700 Awa PO Box Medical Cutler T, 152, Center [address] [place] [address], Suite Center [id number], 120, Lopez 120, [place] Roberto Mejia, tel:+ [place], [address], [id number]. [place]. tel: tel: [phone] Bhavani Mejia Irregular Menses [place]-2 Cutler Referring In Womens 1-201 Awa. Provider: Juliocesar ENG, 7 700 Awa PO Box Medical Cutler T, 152, Center [facility] Dr Kalpesh, [facility], 120, Center [id number], Roberto, [facility] 120, [place] Roberto COLEMAN, tel:[phone] [place], , [place]. [id number]. tel: tel: [phone] Bhavani Mejia Irregular May-2 Cutler Referring In Womens MensesFemale 5-201 Awa. Provider: Juliocesar ENG, infertility 7 700 Awa PO Box associated with Medical Cut[place] T, 152, anovulation Center [facility] Dr Kalpesh, [facility], 120, Center [id number], Roberto, [facility] 120, [place] Roberto COLEMAN, tel:[phone] [place], , [place]. [id number]. tel: tel: [phone] Bhavani Mejia Female May-2 Cutler Referring In Womens infertility, 2-201 Awa. Provider: Juliocesar ENG, unspecified 7 700 Awa PO Box Medical [place] T, 1522, Center [address], [facility], 120, Center [id number], Roberto, [facility] 120, [place] Roberto COLEMAN, tel:[phone] [facility] , [place]. [id number]. tel: tel:[phone] Associates Roberto Abnormal finding May-0 Cutler In Womens of blood 8-201 Awa. Health PA, chemistry, 7 700 PO Box unspecified Medical 1522, Center Dr Kalpesh, [facility] [place], 120, [id number], Mejia, [facility], tel:[phone] , . tel: [phone] Associates Roberto Female May-0 Cutler Referring In Womens infertility, 2-201 Awa. Provider: Health PA, unspecifiedFemale 7 700 Awa PO Box infertility, Medical Cutler T, 1522, unspecified Center [facility] Dr Kalpesh, [facility], 120, [place] [id number], [place] [address], JARED, Roberto, tel:[phone] [facility] , . [id number]. tel: tel:[phone] Family History Family Member Diagnosis Age At Onset Maternal Grandfather Cardiovascular Disease Maternal Grandfather Diabetes Maternal Grandmother Diabetes Maternal Grandmother Hypertension Father Kidney Disease Maternal Grandfather Lung Disease Immunizations Vaccine Date Status Comments Tdap completed Source: New Immunization Record Influenza, injectable, completed Source: New Immunization Record quadrivalent, preservative free, 3 yrs or older Payers Payer name Insurance type Covered democrat ID Authorization(s) [facility] [id number] [facility] [id number] [facility] [id number] Social History Type Description Quantity Date Captured [...] Radiology Order Biophysical Profile without NST Ordered ([id number]) Future Order: Radiology Order OB Detailed Complete Ultrasound Ordered ([id number]) Date Type Problem Goal Intervention Status Start Date Unknown. History Of Present Illness Encounter Date Complaint History Of Present Illness This patient has no known history of present illness Functional Status Encounter Date Functional Assessment Cognitive Assessment Unknown Medications Administered Medication Instructions Dosage Effective Dates (start - stop) Status Comments Drug Treatment Unknown Instructions Date Instruction Additional Information Lifestyle education regarding diet Related to Body [...]
--- OUTSIDE RECORDS SUMMARY | 2018-01-08 19:15 | External Medical Summary | Continuity of Care Document ---
:1990 Author Organization [facility] Address [address] [place], [place] [id number] Phone Care Team Providers Name Role Phone [...] Visit Members Bhavani Braswell of preg w Jul- Sobbing Referring In Womens history of Lloyd. Provider: Health VELASQUEZ, infertility, 8 700 Awa PO Box second Medical Cutler T, 152, trimesterSupervis Center [address] [place], [facility] of other [facility], risk pregnancies, Suite Center [id number], second 120, Lopez 120, [place] trimesterVelament Roberto Mejia, tel: ous insertion of JARED, JARED, 147541 umbilical cord, [address], [id number]. second [place]. tel: trimesterObesity tel: [phone] complicating [phone] , second trimester Associates Roberto Harrisn of preg w Jun- Sobbing Referring In Womens history of Lloyd. Provider: Juliocesar ENG, infertility, 8 700 Waa PO Box second Medical Cutler T, 152, trimesterSupervis Center 700 [place], [facility] of other high [facility], [facility] [place], risk pregnancies, Suite Center [id number], second 120, Lopez 120, [place] trimesterVelament Roberto Mejia, tel: ous insertion of [place], [place], umbilical cord, [address], [id number]. unsp [place]. tel: trimesterObesity tel: [phone] complicating [phone] , second trimester Associates Roberto Suprvsn of preg w Feb-0 Sobbing Referring In Womens Ultrasound history of 1- Lloyd. Provider: Health PA, infertility, 8 700 Awa PO Box second Medical Cutler T, 1522, trimesterSupervis Center 700 [place], ion of other high Drive, Medical [place], risk pregnancies, Suite Center [id number], second 120, Lopez 120, [place] trimesterObesity Roberto Mejia, tel: complicating [place], [place], , second [address], [id number]. [id number] weeks [place]. tel: gestation of tel: [phone] Associates Roberto Suprvsn of preg w [place]-0 Sobbing Referring In Womens history of 4-201 Lloyd. Provider: Health PA, infertility, 8 700 Awa PO Box second Medical Cutler T, 1522, trimesterSupervis Center 700 [place], ion of other high Drive, Medical [place], risk pregnancies, Suite Center [id number], second 120, Lopez 120, [place] trimesterObesity Roberto Mejia, tel: complicating [place], [place], , second [address], [id number]. [id number] weeks [place]. tel: gestation of tel: [phone] Associates Roberto Suprvsn of preg w Dec-0 Sobbing Referring In Womens history of - Lloyd. Provider: Health PA, infertility, 7 700 Awa PO Box first Medical Cutler T, 1522, trimesterSupervis Center 700 [place], ion of other high Drive, Medical [place], risk pregnancies, Suite Center [id number], first 120, Lopez 120, [place] trimesterObesity Roberto Mejia, tel: complicating [place], [place], , first [address], [id number]. [id number] weeks [place]. tel: gestation of tel: [phone] Associates Roberto Suprvsn of preg w Nov-2 Sobbing Referring In Womens history of 0-201 Lloyd. Provider: Juliocesar ENG, infertility, 7 700 Awa PO Box first Medical Cutler T, 1521, trimesterSupervis Center 700 [place], ion of other high Drive, Medical [place], risk pregnancies, Suite Center [id number], first [id number] 120, Lopez 120, [place] weeks gestation Roberto Mejia, tel: [place], [address], [id number]. [place]. tel: tel: [phone] Associates Roberto Suprvsn of preg w Nov-0 Sobbing Referring In Womens history of 9-201 Lloyd. Provider: Juliocesar ENG, infertility, 7 700 Awa PO Box first Medical Cutler T, 1521, trimesterSupervis Center 700 [place], ion of other high Drive, Medical [place], risk pregnancies, Suite Center [id number], first 120, Lopez 120, [place] trimesterObesity Roberto Mejia, tel: complicating [place], [place], , first [address], [id number]. trimester8 weeks US. tel: gestation of tel: [phone] Associates Roberto Irregular Menses [place]-2 Cutler Referring In Womens 1-201 Awa. Provider: Juliocesar ENG, 7 700 Awa PO Box Medical Cutler T, 1521, Center [address], [facility] Medical [place], 120, Center [id number], Roberto, Lopez 120, [place] Roberto COLEMAN, tel:[phone] [place], , [place]. [id number]. tel: tel: [phone] Associates Roberto Irregular May-2 Cutler Referring In Womens MensesFemale 5-201 Awa. Provider: Juliocesar ENG, infertility 7 700 Awa PO Box associated with Medical Cutler T, 152, anovulation Center [address], [facility] Medical [place], 120, Center [id number], Roberto, [facility] 120, [place] Roberto COLEMAN, tel: [phone] [place], , [place]. [id number]. tel: tel: [phone] Associates Roberto Female May-2 Cutler Referring In Womens infertility, 2-201 Awa. Provider: Health VELASQUEZ, unspecified 7 700 Awa PO Box Medical Cutler T, 1522, Center [facility] [address] Kalpesh, [facility], 120, [place] , [facility], Roberto COLEMAN, tel:[phone] [place], , [place]. [id number]. tel: tel:[phone] Associates Roberto Abnormal finding May-0 Cutler In Womens of blood 8-201 Awa. Health PA, chemistry, 7 700 PO Box unspecified Medical 1522, Center Dr Kalpesh, [facility], 120, [id number], [place], [place], tel: [phone] , [place]. tel: [phone] Associates Roberto Female May-0 Cutler Referring In Womens infertility, 2-201 Awa. Provider: Health VELASQUEZ, unspecifiedFemale 7 700 Awa PO Box infertility, Medical Cutler T, 1522, unspecified Center [facility] [address] Kalpesh, [facility], 120, [place] [id number], [facility] 120, Roberto COLEMAN, tel:+ [phone] [facility] , [place]. [id number]. tel: tel: [phone] Family History Family Member Diagnosis Age At Onset Maternal Grandfather Cardiovascular Disease Maternal Grandfather Diabetes Maternal Grandmother Diabetes Maternal Grandmother Hypertension Father Kidney Disease Maternal Grandfather Lung Disease Immunizations Vaccine Date Status Comments Influenza, injectable, completed Source: New Immunization Record quadrivalent, preservative free, 3 yrs or older Payers Payer name Insurance type Covered democrat ID Authorization(s) [facility] [id number] [facility] [id number] Social History Type Description Quantity Date Captured Alcohol Use Details No Caffeine Use Details Unknown Tobacco Use Status Unknown Smoking Status Never smoker Vital Signs Date / Height Weight BMI Pulse Blood Temperature Respiratory Body Head BMI Time: Rate Pressure Rate Surface Circumference percentile Area 206.70 35.4 131/79 -2018 lbs 8 mm[Hg] 3:37 kg/m PM eter (2) Chief Complaint And Reason For Visit Unknown Chief Complaint And Reason For Visit Reason For Referral Reason For Referral Unknown Plan Of Care Date Type Action Status Goal Lifestyle education regarding completed diet Appointment Christy Luna BOOKED Appointment Christy Luna BOOKED Future Order: Radiology Order OB Detailed Complete Ultrasound Ordered ([id number]) Date Type Problem Goal Intervention Status Start [...]
--- OUTSIDE RECORDS SUMMARY | 2018-01-08 19:15 | External Medical Summary | Continuity of Care Document ---
:1990 Author Organization [facility] Address [address] [place], [place] [phone] Phone Care Team Providers Name Role Phone [...] third trimester 33 weeks gestation of - Female infertility, unspecified [...] Comments Panel Description: CBC With Differential/Platelet WBC 15:35:00 10.0 x10E3/uL 3.4-10.8 RBC 15:35:00 2.84 x10E6/uL 3.77-5.28 L Hemoglobin 15:35:00 8.5 g/dL 11.1-15.9 L Hematocrit 15:35:00 24.8 % 34.0-46.6 L MCV 15:35:00 87 fL 79-97 MCH 15:35:00 29.9 pg 26.6-33.0 MCHC 15:35:00 34.3 g/dL 31.5-35.7 RDW 15:35:00 13.4 % 12.3-15.4 Platelets 15:35:00 295 x10E3/uL 150-379 Neutrophils 15:35:00 79 % Not Estab. Lymphs 15:35:00 15 % Not Estab. Monocytes 15:35:00 5 % Not Estab. Eos 15:35:00 1 % Not Estab. Basos 15:35:00 0 % Not Estab. Immature Cells 15:35:00 Neutrophils (Absolute) 15:35:00 7.8 x10E3/uL 1.4-7.0 H Lymphs (Absolute) 15:35:00 1.5 x10E3/uL 0.7-3.1 Monocytes(Absolute) 15:35:00 0.5 x10E3/uL 0.1-0.9 Eos (Absolute) 15:35:00 0.1 x10E3/uL 0.0-0.4 Baso (Absolute) 15:35:00 0.0 x10E3/uL 0.0-0.2 Immature Granulocytes 15:35:00 0 % Not Estab. Immature Grans (Abs) 15:35:00 0.0 x10E3/uL 0.0-0.1 NRBC 15:35:00 Hematology Comments: 15:35:00 Panel Description: Comp. Metabolic Panel (14) Glucose 15:35:00 119 mg/dL 65-99 H BUN 15:35:00 7 mg/dL 6-20 Creatinine 15:35:00 0.68 mg/dL 0.57-1.00 eGFR If NonAfricn Am 15:35:00 120 mL/min/1.73 >59 eGFR If Africn Am 15:35:00 139 mL/min/1.73 >59 BUN/Creatinine Ratio 15:35:00 10 9-23 Sodium 15:35:00 142 mmol/L 134-144 Potassium 15:35:00 3.3 mmol/L 3.5-5.2 L Chloride 15:35:00 104 mmol/L 96-106 Carbon Dioxide, Total 15:35:00 21 mmol/L 18-29 Calcium 15:35:00 9.9 mg/dL 8.7-10.2 Protein, Total 15:35:00 6.3 g/dL 6.0-8.5 Albumin 15:35:00 3.3 g/dL 3.5-5.5 L Globulin, Total 15:35:00 3.0 g/dL 1.5-4.5 A/G Ratio 15:35:00 1.1 1.2-2.2 L Bilirubin, Total 15:35:00 <0.2 mg/dL 0.0-1.2 Alkaline Phosphatase 15:35:00 90 IU/L 39-117 AST (SGOT) 15:35:00 18 IU/L 0-40 ALT (SGPT) 15:35:00 9 IU/L 0-32 Panel Description: Creatinine Clearance Creatinine, Urine 15:35:00 35.7 mg/dL Not Estab. Creatinine, Ur 24hr 15:35:00 1589 mg/24 hr 800-1800 Creatinine Clearance 15:35:00 162 mL/min 88-128 H The above range is based on 1.73 square meter average body surfacearea. Panel Description: Protein Total, Qn, 24-Hr Urine Protein,Total,Urine 15:35:00 6.7 mg/dL Not Estab. Prot,24hr calculated 15:35:00 298 mg/24 hr 30-150 H Advance Directives Directive Yes / No Effective Date File Name Unknown Encounters Encounter Practice Location Reason(s) Diagnoses Date Provider Care Team Description For Visit Members Bhavani Braswell of preg w Sobbing Referring In Womens history of Lloyd. Provider: Juliocesar ENG, infertility, 8 700 Awa [facility], [facility] [address] [place], ion of other high [facility], risk pregnancies, Suite Center [id number], third 120, Lopez 120, [place] trimesterUnspecif Roberto Mejia, tel: ied [place], pre-ecl[place], [address], [id number]. third [place]. tel: trimesterObesity tel: [phone] complicating [id number] , third trimester Associates Roberto Unspecified Sobbing Referring In Womens Ultrasound pre-eclampsia, Lloyd. Provider: Juliocesar ENG, third 8 700 Awa PO Box trimesterVelament [facility] Cutler T, 1521, ous insertion of Center 700 [place], umbilical cord, [facility], third Suite Center [id number], trimesterObesity 120, Lopez 120, [place] complicating Roberto Mejia, tel: , third [place], weeks [address], [id number]. gestation of [place]. tel: tel: [phone] Bhavani Harrisn of preg w Sobbing Referring In Womens history of Lloyd. Provider: Juliocesar ENG, infertility, 8 700 Awa PO Box [facility] Medical Cutler T, 1521, trimesterSupervis Center [address] [place], ion of other high Drive, Medical [place], risk pregnancies, Suite Center [id number], third 120, Lopez 120, [place] trimesterGestatio Roberto Mejia, tel: nal htn [place], significant [address], [id number]. proteinuria, [place]. tel: third tel: [phone] trimesterUnspecif [id number] ied pre-eclampsia, third trimesterObesity complicating , third trimester Associates Roberto Supervision of Sobbing Referring In Womens other high risk [place]. Provider: Health PA, pregnancies, 8 700 Awa PO Box third Medical Cutler T, 152, trimesterGestatio Center [address] [place], nal htn w/o Drive, Medical [place], significant Suite Center [id number], proteinuria, 120, Lopez 120, [place] third Roberto Mejia, tel: trimesterVelament [place], [place], [place] [address], [id number]. umbilical cord, [place]. tel: third tel: [phone] trimesterEncounte [id number] r For Screening For Streptococcus B Bhavani Mejia Gestational htn September- Sobbing Referring In Womens Ultrasound w/o significant [place]. Provider: Health PA, proteinuria, 8 700 Awa PO Box third Medical Cutler T, 152, trimesterVelament Center [address] [place], ous insertion of Drive, Medical [place], umbilical cord, Suite Center [id number], third 120, Lopez 120, [place] trimesterObesity Roberto Mejia, tel: complicating [place], [place], , third [address], [id number]. [id number] weeks [place]. tel: gestation of tel: [phone] Associates Roberto Supervision of September- Sobbing Referring In Womens other high risk [place]. Provider: Health PA, pregnancies, 8 700 Awa PO Box third Medical Cutler T, 152, trimesterVelament Center [address] [place], ous insertion of Drive, Medical [place], umbilical cord, Suite Center [id number], third [email or web address] 120, Lopez 120, [place] weeks gestation Roberto Mejia, [place]: [place], [address], [id number]. [place]. tel: tel: [phone] Bhavani Mejia Supervision of May-0 Sobbing Referring In Womens Ultrasound other high risk 7-201 Lloyd. Provider: Juliocesar ENG, pregnancies, 8 700 Awa PO Box third Medical Cutler T, 152, trimesterGestatio Center [address] [place], nal htn w/o [facility], [facility], significant Suite Center [id number], proteinuria, 120, Lopez 120, [place] third Roberto Mejia, tel: trimesterVelament [place], [place] [address], [id number]. umbilical cord, [place]. tel: third tel: [phone] weeks gestation [id number] of Associates [facility] Gestational htn May-0 Sobbing Referring In Womens w/o significant 1-201 Lloyd. Provider: Juliocesar ENG, proteinuria, 8 700 Awa PO Box third trimester Medical Cutler T, 1521, Center 700 [facility], [facility], Suite Center [id number], 120, Lopez 120, US Roberto Mejia, tel: [place], [address], [id number]. [place]. tel: tel: [phone] Mejia Suprvsn of preg w Apr-3 Sobbing Referring In Womens history of 0-201 Lolyd. Provider: Juliocesar ENG, infertility, 8 700 Awa PO Box third Medical Cutler T, 1521, trimesterSupervis Center 700 [place], ion of other high Drive, Medical [place], risk pregnancies, Suite Center [id number], third 120, Lopez 120, [place] trimesterGestatio Roberto Mejia, tel: nal htn w/[place], significant [address], [id number]. proteinuria, [place]. tel: third [id number] tel: [phone] weeks gestation [id number] of Associates Roberto Obesity, Apr-2 Sobbing Referring In Womens unspecifiedSuprvs 3-201 Lloyd. Provider: Juliocesar ENG, n of preg w 8 700 Awa PO Box history of Medical Cutler T, 152, infertility, Center [address] [place], third [facility], [facility], trimesterSupervis Suite Center [id number], ion of other high 120, Lopez 120, [place] risk pregnancies, Roberto Mejia, tel:+ third [place], JARED, trimesterVelament [address], [id number]. ous insertion of [place]. tel: umbilical cord, tel: [phone] third trimester [id number] Associates Roberto Velamentous Apr-2 Sobbing Referring In Womens Ultrasound insertion of 3-201 Lloyd. Provider: Health PA, umbilical cord, 8 700 Awa PO Box third Medical Cutler T, 1521, trimesterObesity Center [address] [place] [address], [facility], [facility], , third Suite Center [id number], [id number] weeks 120, Lopez 120, [place] gestation of Roberto Mejia, tel: [place], [place], [address], [id number]. [place]. tel: tel: [phone] Associates Roberto Suprvsn of preg w Apr-0 Sobbing Referring In Womens history of 9 Lloyd. Provider: Health PA, infertility, 8 700 Awa PO Box third Medical Cutler T, 1521, trimesterSupervis Center [address] [place] [address], ion of other high [facility], [facility], risk pregnancies, Suite Center [id number], third 120, Lopez 120, US trimesterVelament Roberto Mejia, tel: ous insertion of [place], [place], umbilical cord, [address], [id number]. third [id number] [place]. tel:316 weeks gestation tel: [phone] of [phone] Associates Roberto Obesity, Mar-2 Sobbing Referring In Womens unspecifiedSuprvs 6-201 Lloyd. Provider: Health PA, n of preg w 8 700 Awa PO Box history of Medical Cutler T, 1521, infertility, Center [address] [place] [address], [facility], [facility], trimesterSupervis Suite Center [id number], ion of other high 120, Lopez 120, [place] risk pregnancies, Roberto Mejia, tel: third [id number] [place], [place], weeks gestation [address], [id number]. of [place]. tel: tel: [phone] Associates Roberto Supervision of Mar-2 Sobbing Referring In Womens Ultrasound other high risk 6-201 Lloyd. Provider: Juliocesar PA, pregnancies, 8 700 Awa PO Box third Medical Cutler T, 1522, trimesterVelament Center [address] [place], ous insertion of Drive, Medical [place], umbilical cord, Suite Center [id number], third 120, Lopez 120, US trimesterObesity Roberto Mejia, tel: complicating [place], [place], , third [address], [id number]. [id number] weeks [place]. tel: gestation of tel: [phone] Associates Roberto Suprvsn of preg w Mar-0 Sobbing Referring In Womens history of 1-201 Lloyd. Provider: Juliocesar ENG, infertility, 8 700 Awa PO Box second Medical Cutler T, 1522, trimesterSupervis Center 700 [place], ion of other high Drive, Medical [place], risk pregnancies, Suite Center [id number], second 120, Lopez 120, US trimesterVelament Roberto Mejia, tel: ous insertion of [place], [place], umbilical cord, [address], [id number]. second [place]. tel: trimesterObesity tel: [phone] complicating [id number] , second trimester Associates Roberto Suprvsn of preg w Feb-0 Sobbing Referring In Womens history of 1-201 Lloyd. Provider: Juliocesar ENG, infertility, 8 700 Awa PO Box second Medical Cutler T, 1522, trimesterSupervis Center 700 [place], ion of other high Drive, Medical [place], risk pregnancies, Suite Center [id number], second 120, Lopez 120, US trimesterVelament Roberto Mejia, tel: ous insertion of [place], [place], umbilical cord, [address], [id number]. unsp [place]. tel: trimesterObesity tel: [phone] complicating [id number] , second trimester Associates Roberto Suprvsn of preg w Feb-0 Sobbing Referring In Womens Ultrasound history of 1-201 Lloyd. Provider: Juliocesar ENG, infertility, 8 700 Awa PO Box second Medical Cutler T, 152, trimesterSupervis Center 700 [place], ion of other high Drive, Medical [place], risk pregnancies, Suite Center [id number], second 120, Lopez 120, US trimesterObesity Roberto Mejia, tel:+2 complicating [place], [place], , second [address], [id number]. [id number] weeks [place]. tel: gestation of tel: [phone] Associates Roberto Suprvsn of preg w [place]-0 Sobbing Referring In Womens history of 4-201 Lloyd. Provider: Juliocesar PA, infertility, 8 700 Awa PO Box second Medical Cutler T, 152, trimesterSupervis Center 700 [place], ion of other high Drive, Medical [place], risk pregnancies, Suite Center [id number], second 120, Lopez 120, US trimesterObesity Roberto Mejia, tel:+2 complicating [place], [place], , second [address], [id number]. weeks [place]. tel: gestation of tel: [phone] Associates Roberto Suprvsn of preg w Dec-0 Sobbing Referring In Womens history of 7-201 Lloyd. Provider: Juliocesar ENG, infertility, 7 700 Awa PO Box first Medical Cutler T, 152, trimesterSupervis Center 700 [place], ion of other high Drive, Medical [place], risk pregnancies, Suite Center [id number], first 120, Lopez 120, US trimesterObesity Roberto Mejia, tel:+2 complicating [place], [place], , first [address], [id number]. weeks [place]. tel: gestation of tel: [phone] Associates Roberto Suprvsn of preg w Nov-2 Sobbing Referring In Womens history of 0-201 Lloyd. Provider: Juliocesar ENG, infertility, 7 700 Awa PO Box first Medical Cutler T, 1522, trimesterSupervis Center 700 [place], ion of other high Drive, Medical [place], risk pregnancies, Suite Center [id number], first [id number] 120, Lopez 120, [place] weeks gestation Roberto Mejia, tel: [place], [address], [id number]. [place]. tel: tel: [phone] Associates Roberto Suprvsn of preg w Nov-0 Sobbing Referring In Womens history of 9 Lloyd. Provider: Juliocesar ENG, infertility, 7 700 Awa PO Box first Medical Cutler T, 1521, trimesterSupervis Center [address]osey, james of other high Drive, Medical [place], risk pregnancies, Suite Center [id number], first 120, Lopez 120, US trimesterObesity Roberto Mejia, tel: complicating [place], [place], , first [address], [id number]. trimester8 weeks US. tel: gestation of tel: [phone] Associates Roberto Irregular Menses [place]-2 Cutler Referring In Womens -201 Awa. Provider: Juliocesar ENG, 7 700 Awa PO Box Medical Omayra T, 1521, Center [address], [facility] [place], 120, Center [id number], Roberto [facility] 120, [place] Roberto COLEMAN, tel: [phone] [place], , [place]. [id number]. tel: tel: [phone] Associates Roberto Irregular September-2 Cutler Referring In Womens MensesFemale 5-201 Awa. Provider: Juliocesar ENG, infertility 7 700 Awa PO Box associated with Medical Cutler T, 1521, anovulation Center [address], [facility] [place], 120, Center [id number], Roberto [facility] 120, [place] Roberto COLEMAN, tel: [phone] [place], , [place]. [id number]. tel: tel: [phone] Associates Roberto Female September-2 Cutler Referring In Womens infertility, 2-201 Awa. Provider: Juliocesar ENG, unspecified 7 700 Awa PO Box Medical Cutler T, 1521, Center [address], [facility] [place], 120, Center [id number], Roberto [facility] 120, [place] Roberto COLEMAN, tel:+ [phone] [place], , . [id number]. tel: tel:[phone] Associates Roberto Abnormal finding May-0 Cutler In Womens of blood 8-201 Awa. Health PA, chemistry, 7 700 PO Box unspecified Medical 1522, [place] [address] Kalpesh, [facility] [place], 120, [id number], [place], [facility], tel:[phone] , . tel: [phone] Associates Roberto Female May-0 Cutler Referring In Womens infertility, 2-201 Awa. Provider: Health VELASQUEZ, unspecifiedFemale 7 700 Awa PO Box infertility, Medical Cutler T, 1522, unspecified Center [facility] Dr Kalpesh, [facility], 120, [place] , [place] [address], Roberto COLEMAN, tel:+[phone] [facility] , . [id number]. tel: tel:+[phone] Family History Family Member Diagnosis Age At Onset Maternal Grandfather Cardiovascular Disease Maternal Grandfather Diabetes Maternal Grandmother Diabetes Maternal Grandmother Hypertension Father Kidney Disease Maternal Grandfather Lung Disease Immunizations Vaccine Date Status Comments Tdap completed Source: New Immunization Record Influenza, injectable, completed Source: New Immunization Record quadrivalent, preservative free, 3 yrs or older Payers Payer name Insurance type Covered constitution party ID Authorization(s) [facility] [id number] [facility] [id number] [facility] [id number] Social History Type Description Quantity Date Captured Alcohol Use Details No Caffeine Use Details Unknown Tobacco Use Status Unknown Smoking Status Never smoker Vital Signs Date / Height Weight BMI Pulse Blood Temperature Respiratory Body Head BMI Time: Rate Pressure Rate Surface Circumference percentile Area 219.30 37.6 154/ -2018 lbs 4 mm[Hg] 3:38 kg/m PM eter (2) Chief Complaint And Reason For Visit Unknown Chief Complaint And Reason For Visit Reason For Referral Reason For Referral Unknown Plan Of Care Date Type Action Status Goal Lifestyle education regarding completed diet Appointment Christy Luna BOOKED Appointment Christy Luna BOOKED Future Order: Radiology Order OB Detailed Complete Ultrasound Ordered ([id number]) Future Order: Radiology Order Ultrasound OB Follow-up ([id number]) Ordered Future Order: Radiology Order Biophysical Profile without NST Ordered ([id number]) Future Order: Radiology Order Ultrasound OB Follow-up ([id number]) Ordered Future Order: Radiology Order Biophysical Profile without NST Ordered ([id number]) Future Order: Radiology Order Ultrasound OB Follow-up ([id number]) Ordered Future Order: Radiology Order Biophysical Profile without NST Ordered ([id number]) Future Order: Radiology Order Ultrasound OB Follow-up ([id number]) Ordered Future Order: Radiology Order Biophysical Profile without NST Ordered ([id number]) Date Type Problem Goal Intervention Status Start [...]
[2018-01-08] MEDS ORDERED: NS 1,000 ML IV ONE (19:19)
[2018-01-08] MEDS ORDERED: SALINE FLUSH 10ml SYRINGE IVF PRN (19:19)
[2018-01-08] MEDS ORDERED: ONDANSETRON 4 MG/2 ML INJECTION IVP ONE (19:19)
[2018-01-08] MEDS ORDERED: HYDROMORPHONE 2 MG/ML INJECTION IVP ONE (19:20)
--- NOTE | 2018-01-08 19:21 | Emergency Department Report ---
Abdominal Pain HPI - General Chief Complaint: Back Pain/Injury Stated Complaint: upper abd pain into back Time Seen by Provider: 01/08/18 19:05 Source: patient Mode of arrival: ambulatory Limitations: no limitations - History of Present Illness HPI narrative: 27 YO F presents to ED with complaint of RUQ pain radiating through to her back. Patient says pain started 1-2 hours after eating at [employer] today. Vomited twice after onset of pain. Says she took a nap and woke up with worse pain. Hx. of kidney stones but says this does not feel like that. Denies fever, chills, CP, SOA, constipation, diarrhea, dysuria, hematuria. MD complaint: abdominal pain Onset (ago): hour(s) (5) Location: RUQ Severity scale (1-10): 9 Quality: stabbing, aching Radiation: back - Related Data Home Medications Medication Instructions Recorded Confirmed Escitalopram [Lexapro] 10 mg PO DAILY 01/08/18 01/08/18 Allergies Allergy/AdvReac Type Severity Reaction Status Date / Time codeine Allergy Severe Agitated Verified 01/08/18 19:19 Sulfa (Sulfonamide Allergy Mild RASH Verified 01/08/18 19:19 Antibiotics) Review of Systems All systems: reviewed and negative except as stated Gastrointestinal: Reports: as per HPI, abdominal pain, nausea, vomiting PFSH Patient Stated Medical History Other Cardiology Yes: induced hypertension Asthma Yes: not currently using inhaler Anemia Yes: low iron Herpes No Human Immunodeficiency Virus ( Yes HIV) Depression Yes: medication in past. not presently Abnormal Pap Yes: biopsy of cervix results negative Infertility Yes: clomid Maternal Gestational Diabetes No Ovarian Cysts Yes Now Yes: 35w5d Surgical History: section. Bladder surgery Family History: Mother and sister have gallbladder disease - Social History Smoking status: Never smoker second hand exposure: No Substance use type: does not use Alcohol intake frequency: does not drink Household members: spouse, family Current occupational status: employed Physical Exam - Limitations Limitations: no limitations - General General appearance: alert - Normal Exams: Head:: Normocephalic without trauma Eyes:: No scleral icterus, irritation ENMT:: No facial trauma, nasal exudates, pharyngeal erythema Neck:: Full range of motion Chest/Respirations:: Clear all laird, with good airflow, and symmetry bilaterally Cardiovascular:: Regular rate and rhythm Musculoskeletal:: good range of motion, all extremities Neurological:: Patient is alert, and oriented, motor/sensory/cerebellar, exams w /o gross deficits, to observation Psychiatric:: Patient exhibits, appropriate attention - Eye Eye exam: Present: EOMI - Neck Neck exam: Present: trachea midline - Abdominal Exam Abdominal exam: Present: soft, tenderness (RUQ), guarding, hypoactive bowel sounds (x4), Rovsing's sign, tenderness at McBurney's Point. Absent: distention - Back Exam Back exam: Absent: tenderness, CVA tenderness (R), CVA tenderness (L) - Skin Skin exam: Present: warm, dry Course - Consultations Consultation #1: I discussed patient's HPI, past medical history, labs, ultrasound report, vital signs, exam findings and treatment in the ER with Dr. Lala alcaraz. Dr. Tucker well admit patient observation surgical. Vital Signs Temperature 98.0 F 01/08/18 19:05 Pulse Rate 88 01/08/18 19:05 Respiratory Rate 18 01/08/18 19:05 Blood Pressure 125/73 01/08/18 19:05 Pulse Oximetry 99 01/08/18 19:05 Temperature 96.5 F L 01/08/18 23:00 Pulse Rate 72 01/08/18 23:20 Respiratory Rate 12 01/08/18 23:20 Blood Pressure 130/82 01/08/18 23:00 Pulse Oximetry 99 01/08/18 23:20 Abdominal Pain - MDM Narrative Medical decision making narrative: WBC 12.4 AST 161 ALT 94 Lipase normal UA has 2+ leukocyte esterase with WBC 20-30. Patient does have squamous epithelial cells in an specimen which could indicate a contaminated sample. Culture was ordered. Patient has positive Brewer's sign Pain states she is no longer having pain after 1mg of IV Dilaudid and no longer nauseated after Zofran 4mg IV. US show cholelithiasis without common duct dilatation On reexam patient is dry box tender in right upper quadrant. I discussed observation admission due to pain with patient which she agrees with. - Differential Diagnosis Differential diagnosis: Likely: abdominal pain, calculus of kidney, constipation , other (cholecystitis) - Medical Records Attestation: I reviewed the patient's medical records. - Lab Data Attestation: I reviewed the patient's lab results. Result diagrams: 01/08/18:28 01/08/18 19:28 Lab Results 01/08/18 01/08/18 01/08/18 Range/Units 19:28 19:28 19:28 WBC 12.4 H (4.5-11.0) T/MM3 RBC 4.04 (4.00-5.20) M/MM3 Hgb 12.4 (12-16) GM/DL Hct 36.5 (36-46) % MCV 90.3 (80-100) UM3 MCH 30.7 (26-34) UUG MCHC 34.0 (31-37) GM/DL RDW Std Deviation 38.0 (36.9-50.2) FL Plt Count 289 (130-400) T/MM3 MPV 8.8 L (9.4-12.4) UM3 Immature Gran % (Auto) 0.2 (0.0-0.5) % Neut % (Auto) 80.5 H (33-66) % Lymph % (Auto) 14.2 L (23-45) % [place] % (Auto) 4.9 (0-9.0) % Eos % (Auto) 0.1 (0-4) % Baso % (Auto) 0.1 (0-2) % Neut # (Auto) 10.0 H (1.8-7.7) T/MM3 Lymph # (Auto) 1.8 (1-4.8) T/MM3 [place] # (Auto) 0.6 (0-0.8) T/MM3 Eos # (Auto) 0.0 (0-0.5) T/MM3 Baso # (Auto) 0.0 (0-0.2) T/MM3 Abs Immat Gran (auto) 0.02 (0.00-0.03) T/MM3 Turbidity < 20 (0-20) Sodium 148 H (136-146) MEQ/L Potassium 3.6 (3.6-5) MEQ/L Chloride 106 (98-107) MEQ/L Carbon Dioxide 26 (22-30) MEQ/L Anion Gap 16 H (5-15) meq/L BUN 19.0 H (7-17) MG/DL Creatinine 0.8 (0.7-1.2) mg/dL Estimated Creat Clear 111 (>50) mL/min GFR Calculation 86 (>60) mL/min BUN/Creatinine Ratio 24 (6-26) RATIO Glucose 134 H (65-110) MG/DL Calculated Osmolality 288 H (261-280) MOSM/KG Calcium 10.6 H (8.4-10.2) MG/DL Total Bilirubin 0.70 (0.20-1.30) MG/DL Icterus Index < 2 (0-7) AST 161 H (14-36) U/L ALT 94 H (1-35) U/L Alkaline Phosphatase 143 H (38-126) U/L Total Protein 8.6 H (6.3-8.2) g/dL Albumin 5.0 (3.5-5.0) g/dL Globulin 3.6 (2.4-3.6) G/DL Albumin/Globulin Ratio 1.4 (1.1-2.2) RATIO Lipase 141 (23-300) U/L Specimen Hemolysis < 15 (0-25) Ur Collection Type Urine, void-cc/notcc Urine Color Yellow (YELLOW) Urine Clarity Sl cloudy Urine pH 6.5 (5.0-8.0) Ur Specific [place] 1.020 (1.015-1.025) Urine Protein Negative (NEGATIVE) Urine Glucose (UA) Negative (NEGATIVE) Urine Ketones Negative (NEGATIVE) Urine Occult Blood Trace-lysed (NEGATIVE) Urine Nitrate Negative (NEGATIVE) Urine Bilirubin Negative (NEGATIVE) Urine Urobilinogen 0.2 (NORMAL) EU/DL Ur Leukocyte Esterase 2+ A (NEGATIVE) Urine RBC 1-3 (0-3) /HPF Urine WBC 20-30 H (0-5) /HPF Urine WBC Clumps Few Ur Squamous Epith Cells 0-5 Urine Bacteria Trace H (NEGATIVE) Ur Culture Indicated? Cult not indicated Urine Test (Negative) 01/08/18 Range/Units 19:28 WBC (4.5-11.0) T/MM3 RBC (4.00-5.20) M/MM3 Hgb (12-16) GM/DL Hct (36-46) % MCV (80-100) UM3 MCH (26-34) UUG MCHC (31-37) GM/DL RDW Std Deviation (36.9-50.2) FL Plt Count (130-400) T/MM3 MPV (9.4-12.4) UM3 Immature Gran % (Auto) (0.0-0.5) % Neut % (Auto) (33-66) % Lymph % (Auto) (23-45) % [place] % (Auto) (0-9.0) % Eos % (Auto) (0-4) % Baso % (Auto) (0-2) % Neut # (Auto) (1.8-7.7) T/MM3 Lymph # (Auto) (1-4.8) T/MM3 [place] # (Auto) (0-0.8) T/MM3 Eos # (Auto) (0-0.5) T/MM3 Baso # (Auto) (0-0.2) T/MM3 Abs Immat Gran (auto) (0.00-0.03) T/MM3 Turbidity (0-20) Sodium (136-146) MEQ/L Potassium (3.6-5) MEQ/L Chloride (98-107) MEQ/L Carbon Dioxide (22-30) MEQ/L Anion Gap (5-15) meq/L BUN (7-17) MG/DL Creatinine (0.7-1.2) mg/dL Estimated Creat Clear (>50) mL/min GFR Calculation (>60) mL/min BUN/Creatinine Ratio (6-26) RATIO Glucose (65-110) MG/DL Calculated Osmolality (261-280) MOSM/KG Calcium (8.4-10.2) MG/DL Total Bilirubin (0.20-1.30) MG/DL Icterus Index (0-7) AST (14-36) U/L ALT (1-35) U/L Alkaline Phosphatase (38-126) U/L Total Protein (6.3-8.2) g/dL Albumin (3.5-5.0) g/dL Globulin (2.4-3.6) G/DL Albumin/Globulin Ratio (1.1-2.2) RATIO Lipase (23-300) U/L Specimen Hemolysis (0-25) Ur Collection Type Urine Color (YELLOW) Urine Clarity Urine pH (5.0-8.0) Ur Specific [place] (1.015-1.025) Urine Protein (NEGATIVE) Urine Glucose (UA) (NEGATIVE) Urine Ketones (NEGATIVE) Urine Occult Blood (NEGATIVE) Urine Nitrate (NEGATIVE) Urine Bilirubin (NEGATIVE) Urine Urobilinogen (NORMAL) EU/DL Ur Leukocyte Esterase (NEGATIVE) Urine RBC (0-3) /HPF Urine WBC (0-5) /HPF Urine WBC Clumps Ur Squamous Epith Cells Urine Bacteria (NEGATIVE) Ur Culture Indicated? Urine Test Negative (Negative) - Radiology Data Attestation: I reviewed the patient's radiology results. US gallbladder: Cholelithiasis with no dilatation of common bile duct (V-RAD) Disposition Clinical Impression: Biliary colic Cholelithiasis Qualifiers: Cholelithiasis location: gallbladder Cholecystitis presence: without cholecystitis Biliary obstruction: without biliary obstruction Qualified Code(s) : K80.20 - Calculus of gallbladder without cholecystitis without obstruction Disposition: 02 To [facility] Condition: Stable for Transport - Seen By: midlevel
[2018-01-08] MEDS ORDERED: MORPHINE SULFATE 2mg INJECTION IVP PRN (23:04)
[2018-01-08] MEDS ORDERED: ONDANSETRON 4 MG/2 ML INJECTION IVP PRN (23:06)
[2018-01-08] MEDS: LR 1,000 ML IV SCH (23:09)
[2018-01-08 23:20] VITALS: BMI 32.5
--- NOTE | 2018-01-09 08:55 | Ultrasound Report ---
Indication: RUQ , positive Brewer's PROCEDURE: US gall bladder: Encounter: Initial Comparison: None Technique: Grayscale and color Doppler sonographic imaging of the right upper quadrant of the abdomen was performed. Findings: Hepatic parenchyma is homogeneous without evidence for focal mass. The gallbladder shows a few mobile gallstones. There is no wall thickening, pericholecystic fluid. Both the intra and extrahepatic biliary system are of normal caliber with the common duct measuring 4 mm in dimension. Visualized portions of the head and body of the pancreas are unremarkable. The right kidney is present without collecting system dilatation. The right kidney measures 10.9 cm in length. Impression: Cholelithiasis without definite evidence of acute cholecystitis. There is a preliminary report by [facility]. .
[2018-01-09] MEDS: LR 1,000 ML IV SCH ×2 (09:10→20:32)
[2018-01-09] MEDS: ERTAPENEM 1 G in NS 100 ML IV SCH (14:52)
[2018-01-09] MEDS: ESCITALOPRAM 10 MG TABLET PO SCH (17:33)
[2018-01-10] MEDS: LR 1,000 ML IV SCH ×2 (07:02→14:03)
[2018-01-10] MEDS: ESCITALOPRAM 10 MG TABLET PO SCH (08:34)
--- NOTE | 2018-01-10 08:39 | General Surgery Progress Note ---
Subjective Patient reports: feels better, pain is less (RUQ pain now minimal, she has had no pain meds during the night and states RUQ pain is "nothing like" admission on Wednesday) Narrative: Planning lap adilene with IOC early afternoon today. T. Bili is down to 0.5 this morning (1.40 yesterday) - Vital Signs Last Vital Signs Temp 98.4 F 01/10/18 08:00 Pulse 60 01/10/18 08:00 Resp 16 01/10/18 08:00 BP 97/60 01/10/18 08:00 Pulse Ox 97 01/10/18 08:00 - Laboratory Result Diagrams: 01/09/18 03:45 01/10/18 07:43 - Microbiogy Microbiology 01/09/18 07:56 Urine, Voided (Cc/notcc) Urine Culture - Preliminary No Growth After 1 Day - Abnormal Exam Abdominal: obese, tender (mild tendernes RUQ with palpation) - Normal Exam General: awake, alert, oriented, no acute distress Cardiovascular: regular rhythm, regular rate Respiratory: no labored breathing Abdominal: soft Psychiatric: normal affect Neurological: CN 2-12 grossly intact Assessment and Plan (1) Symptomatic cholelithiasis Current Visit: Yes Status: Acute (2) Depression Current Visit: Yes Status: Chronic Qualifiers: Depression Type: unspecified Qualified Code(s): F32.9 - Major depressive disorder, single episode, unspecified (3) state Current Visit: Yes Status: Chronic Problem details: October 19, 2017 Sobbing Plan: Repeat CMP this am, T. Bili down to normal 0.5, AST ALT still slightly elevated. Plan Lap adilene with IOC early afternoon. depending on surgery and pt post op pain/nausea/etc, may consider discharge to home this evening or tomorrow morning. Hospital Course Summary Disclaimer: The visit summary below is not to be considered part of the above Progress Note.
[2018-01-10] MEDS: ERTAPENEM 1 G in NS 100 ML IV SCH (09:32)
--- NOTE | 2018-01-10 11:15 | History and Physical ---
DATE OF SERVICE 01/09/2018 FINDINGS Mrs. Luna is a 27-year-old female whom I was asked to see through the emergency room late last evening as a result of her presentation of symptomatic cholelithiasis. Patient states that yesterday after eating at [email or web address] she acutely developed severe abdominal pain. Pain was located within her upper abdomen. Pain was constant in nature. Pain radiated in towards her back. Patient states that when she did present to the emergency room she was found to be exquisitely tender within her right upper quadrant. Patient states she still has some tenderness this morning but overall is improved. She has not had similar episodes in the past. Patient states that she did have kidney stones in the past but this pain was "totally different". The patient recently delivered her baby a couple of months ago. She denied any "gallbladder symptoms " during her recent . The patient denied really any specific aggravating or alleviating symptomatology in regards to this significant epigastric abdominal pain that she had experienced yesterday. PAST MEDICAL HISTORY Chronic Illness/System Disorders None. PAST SURGICAL HISTORY Bladder surgery and prior . MEDICATIONS Medications on admission included Lexapro 10 mg daily. ALLERGIES CODEINE and SULFA. SOCIAL HISTORY The patient denies alcohol or tobacco use. FAMILY HISTORY Patient denies any family history for diabetes, heart disease nor malignancy. The patient states that her mother and father are alive and healthy. REVIEW OF SYSTEMS Review of systems undertaken with the patient and was negative except as stated above in HPI section for constitutional, HEENT, cardiac, respiratory, GI, , musculoskeletal, hematologic/oncologic, and dermatologic. PHYSICAL EXAMINATION GENERAL: Patient is a 27-year-old female who does not appear to be in acute distress. VITALS: Vitals this morning included temperature 96.5, pulse 79, respirations 18, blood pressure 97/60, SaO2 99% on room air. HEENT: Normocephalic. Pupils are equally round and react to light and accommodation. NECK: Supple without lymphadenopathy. CHEST: Clear to auscultation bilaterally. HEART: Regular rate and rhythm. Normal S1, S2, without gallops, murmurs or clicks. ABDOMEN: Palpation of the abdomen today did reveal some tenderness within her right upper quadrant upon firm palpation. She did have a slight component of some voluntary guarding. There was, however, no evidence for involuntary guarding or rebound. I did not appreciate a positive Brewer's sign today. EXTREMITIES: Without clubbing, cyanosis, or edema. NEURO: Cranial nerves II-XII grossly intact. Patient without focal, motor, or sensory deficits. LABORATORY/RADIOGRAPHIC/REVIEW OF PATIENT'S CHART Patient's white count yesterday through the emergency room was 12,000. Today it was 8000. Hemoglobin has been stable. Hemoglobin today is slightly low at 11.8. P had a CMP yesterday and her AST, ALT, and alkaline phosphatase are elevated at 161, 94, and 143. Today they have increased to 210, 176 and 159, respectively. Her total bilirubin has also increased from 0.7 to 1.4. UA was obtained and she was found to have 20-30 WBCs and trace bacteria. Culture was not indicated. The patient did undergo gallbladder ultrasound that did reveal numerous stones within the gallbladder. There was no evidence for pericholecystic fluid or gallbladder wall thickening. No evidence for biliary dilatation. ASSESSMENT 27-year-old female with symptomatic cholelithiasis/acute cholecystitis. PLAN I informed the patient it is my clinical intuition that her severe abdominal pain was indeed the result of her gallstones. I informed the patient that I would recommend proceeding with surgical intervention/laparoscopic cholecystectomy. I do not feel that this is an emergent issue today and with our limited staffing, do not feel that we should proceed with "emergent" surgery in her situation. It would be my recommendation that we go ahead and place her empirically on antibiotics given her suspected acute cholecystitis. I recommend that we repeat CBC and CMP tomorrow to see if indeed her bilirubin continues on an upward trend. Tomorrow I would recommend that we proceed with laparoscopic cholecystectomy with intraoperative cholangiogram and possible transcystic common bile duct exploration pending her cholangiogram results. I did discuss with the patient what this procedure would entail and its associated risks which included, but was not exclusive of, bleeding, infection, potential injury to adjacent structures especially the common bile duct, as well as potential for conversion to an open procedure. I also informed the patient that if she is found to have evidence for choledocholithiasis upon cholangiography and we are not able to clear her common bile duct laparoscopically, that she may ultimately need to be transferred to [place] to undergo an ERCP. The above plan was discussed with the patient as well as the risks as stated above. The patient understood and agreed with proposed plan. TRIPP
[2018-01-10] MEDS ORDERED: IOHEXOL 300mg/ml 50ml INJECTION ONE (12:15)
--- NOTE | 2018-01-10 13:02 | Anesthesia Preoperative Report ---
Anesthesia Preoperative Record - Date and Time Date: 01/10/18 Preoperative Diagnosis: Bilary colic, cholelithiasis Proposed Procedure: Lap Choley NPO Since Date: 01/10/18 NPO Since Time: 00:00 Allergies/Adverse Reactions: Allergies Allergy/AdvReac Type Severity Reaction Status Date / Time codeine Allergy Severe Agitated Verified 01/08/18 19:19 Sulfa (Sulfonamide Allergy Mild RASH Verified 01/08/18 19:19 Antibiotics) - Vital Signs Vital Signs: Temperature 98.1 F 01/10/18 12:07 Pulse Rate 75 01/10/18 12:07 Respiratory Rate 18 01/10/18 12:07 Blood Pressure 112/71 01/10/18 12:07 Pulse Oximetry 98 01/10/18 12:07 Height and Weight: Height 5 ft 4 in Weight 85 kg Body Mass Index 32.5 - Medications Inpatient Medications: Current Medications Escitalopram Oxalate (Lexapro) 10 mg PO DAILY [facility] Last Admin: 01/10/18 08:34 Dose: Not Given Lactated Ringer's (Lactated Ringers) 1,000 mls @ 100 mls/hr IV .Q10H [facility] Last Infusion: 01/10/18 12:00 Dose: 0 mls/hr Ertapenem 1 g/ Sodium Chloride 100 mls @ 200 mls/hr IV DAILY [facility] Last Infusion: 01/10/18 10:02 Dose: Infused Morphine Sulfate (Morphine Sulf 2 Mg Inj) 1 - 4 mg IVP Q1HR PRN PRN Reason: Pain Ondansetron HCl (Zofran) 4 mg IVP Q6H PRN PRN Reason: Nausea &/or vomiting Sodium Chloride (Iv Flush) 10 - 80 ml IVF PRN PRN PRN Reason: Flushing Last Admin: 01/08/18 19:50 Dose: 10 ml Home Medications: Home Medications Medication Instructions Recorded Confirmed Type Escitalopram [Lexapro] 10 mg PO DAILY 01/08/18 01/08/18 History Is Patient on Beta Agnes?: No - Medical History Respiratory: Reports: Asthma (not currently using inhaler- exercise induced) DENIES: Sleep Apnea Cardiovascular: Reports: Other ( induced hypertension) Gastrointestional: DENIES: Gastroesophageal Reflux Disease (Denies currently. Only when ) Neuro/Musculoskeletal: Reports: Depression (medication in past. not presently) Other History: DENIES: Now - Surgical History HEENT Surgeries: Reports: Oral Surgery (wisdom teeth 18 yrs old) Surgery/Treatment: REPORT: Other ("Urethral stretching" 16 or 17 years old) Reproductive Surgery/Treatment: Reports: Cervical Procedure (biopsy) Anesthesia Reactions: None Hx Family Anesthesia Reaction: No History of Motion Sickness: No - Social History Smoking Status: Never smoker Second Hand Exposure: No Substance Use Type: does not use Alcohol Intake Frequency: does not drink - Pertinent Findings Laboratory: CBC and BMP 01/09/18 03:45 01/10/18 07:43 BMP 01/10/18 07:43 Sodium 146 Potassium 3.9 Chloride 110 H Carbon Dioxide 26 BUN 16.0 Creatinine 0.9 Glucose 85 Calcium 9.8 Liver Function 01/10/18 Range/Units 07:43 Total Bilirubin 0.50 (0.20-1.30) MG/DL AST 84 H D (14-36) U/L ALT 186 H (1-35) U/L Alkaline Phosphatase 257 H D (38-126) U/L Albumin 3.9 (3.5-5.0) g/dL EKG: Sinus Rhythm - Physical Exam Respiratory Exam: Present: lungs clear, bilateral breath sounds equal Cardiovascular Exam: Present: regular rate and rhythm, no murmur - Airway Assessment Mallampati Score: II TMD: 3 Fingerbreadths Neck Extension: fair Overall Assessment: no airway concerns - ASA ASA Score: 2 - Plan Anesthesia: General Inhalation Gases - Discussion Discussion: Discussed risks/options/alternatives of anesthesia and questions answered. Patient consents. Nursing pain assessment noted. Present for Discussion: family member (sibling) Attestation Statement: Prior to the delivery of any anesthetic medication, I examined the patient, developed the plan, obtained the patient's consent and discussed the risk and benefits of the procedure with the patient/guardian. - Additional Information Seen by Anesthesia: Yes
[2018-01-10] MEDS ORDERED: SEVOFLURANE 250ml LIQUID IH ONE (13:13)
[2018-01-10] MEDS ORDERED: DEXAMETHASONE 4 MG/ML INJECTION ONE (13:14)
[2018-01-10] MEDS ORDERED: PROPOFOL 20 ML ONE (13:14)
[2018-01-10] MEDS ORDERED: ROCURONIUM 50 MG/5 ML INJECTION IVP ONE (13:14)
[2018-01-10] MEDS ORDERED: DiphenhydrAMINE 50 MG/ML INJECTION ONE (13:14)
[2018-01-10] MEDS ORDERED: ONDANSETRON 4 MG/2 ML INJECTION ONE (13:14)
[2018-01-10] MEDS ORDERED: HYDROMORPHONE 2 MG/ML INJECTION ONE (13:15)
[2018-01-10] MEDS ORDERED: FentaNYL 250 MCG/5 ML INJECTION ONE (13:15)
[2018-01-10] MEDS ORDERED: SALINE FLUSH 10ml SYRINGE ONE (13:36)
[2018-01-10] MEDS ORDERED: INDOCYANINE GREEN 25mg INJECTION ONE (13:36)
[2018-01-10] MEDS ORDERED: KETOROLAC 30 MG/ML INJECTION ONE (14:07)
[2018-01-10] MEDS ORDERED: SUGAMMADEX 200mg/2ml INJECTION IVP ONE (14:07)
[2018-01-10] MEDS ORDERED: SALINE FLUSH 10ml SYRINGE IV ONE (14:19)
[2018-01-10] MEDS ORDERED: NS IRR MIX OPSITE ONE (14:19)
[2018-01-10] MEDS ORDERED: BUPIVACAINE 0.25%/EPI 1:200,000 30ml SDV ID ONE (14:19)
[2018-01-10] MEDS ORDERED: INDOCYANINE GREEN 25mg INJECTION IVP ONE (14:19)
[2018-01-10] MEDS ORDERED: OMNIPAQUE 300 MG/ML OPSITE ONE (14:19)
[2018-01-10] MEDS ORDERED: HYDROMORPHONE 2 MG/ML INJECTION IVP PRN (14:46)
[2018-01-10] MEDS ORDERED: PROPOFOL 500 MG/50 ML VIAL ONE ×2 (14:47→15:15)
--- NOTE | 2018-01-10 14:51 | Remote Fluorsocopy Report ---
EXAM: RF cholangiogram operative COMPARISON: None available. HISTORY: LAP MADY . FINDINGS: Two portable Intra-Op C-arm images during Intra-Op line grams shows opacification of the cystic duct, right and left hepatic ducts, right intrahepatic ducts, common hepatic duct duct, and common bile duct with exacerbation into the duodenum. No definite filling defect is identified suggest retained stone. There is slight attenuation of contrast at the level of the distal common hepatic duct but may be due to a crossing vessel. Number of images:2. Radiation dose: 393.26 mL. Fluoroscopy time: 12 seconds IMPRESSION: Unremarkable intraoperative cholangiogram. LOCATION OF DICTATION: [facility] .
--- NOTE | 2018-01-10 15:19 | Anesthesia Postoperative Note ---
- Date and Time Date: 01/10/18 Time: 15:19 - Status Patient Participated in Evaluation: Patient Participated in Person Vital Signs: Temperature 97.2 F 01/10/18 14:27 Pulse Rate 78 01/10/18 15:10 Respiratory Rate 12 01/10/18 15:10 Blood Pressure 118/60 01/10/18 15:10 Pulse Oximetry 94 01/10/18 15:10 Respiratory Function: Airway Patent Cardiovascular Function: Regular Pulse EKG: Sinus Rhythm Mental Status: Alert and Oriented Pain Intensity: 5 Hydration: IV Infusing Nausea/Vomiting: None Complications During Recover: None Apparent - Follow-Up Instructions Instructions: Per Surgeon
[2018-01-10] MEDS ORDERED: ONDANSETRON ODT 4 MG TABLET PO PRN (15:36)
[2018-01-10] MEDS ORDERED: HYDROCODONE/APAP 5mg/325mg TABLET PO PRN (15:36)
[2018-01-10] MEDS ORDERED: KETOROLAC 30 MG/ML INJECTION IVP PRN (15:36)
[2018-01-10] MEDS ORDERED: METOCLOPRAMIDE 10mg/2ml INJECTION IVP PRN (15:36)
[2018-01-10 15:42] VITALS: TEMP 98.4
[2018-01-10 16:53] VITALS: RESP 18
--- NOTE | 2018-01-10 17:30 | Operative Note ---
DATE OF SERVICE 01/18/2018 SURGEON Shaun Tucker MD PREOPERATIVE DIAGNOSIS Symptomatic cholelithiasis/acute cholecystitis. POSTOPERATIVE DIAGNOSIS Symptomatic cholelithiasis/acute cholecystitis. PROCEDURE Laparoscopic cholecystectomy with use of fluorescence biliary imaging, intraoperative cholangiogram. ANESTHESIA General endotracheal anesthesia EBL/FLUIDS Please see chart. BRIEF HISTORY/INDICATIONS Mrs. Luna is a 27-year-old female who presented over the course of the weekend with fairly significant pain within her epigastric region and right upper quadrant. The patient was admitted to the hospital. Her abdominal pain began to improve. The patient was placed on intravenous antibiotics. Initially her bilirubin began to increase in nature but today her bilirubin was on a downward trend. The patient had undergone a gallbladder ultrasound and was found to have multiple gallstones. A result of the above indications it was recommended to the patient that she undergo surgical intervention/laparoscopic cholecystectomy. For completeness please refer to notes included in the patient 's chart. FINDINGS Upon laparoscopy the liver edge smooth without nodularities. Gallbladder was found to be thickened in nature and contained a component of pericholecystic edema consistent with that of acute inflammation/cholecystitis. Small bowel, omentum, colon, peritoneal surfaces which were visualized were within normal limits. Laparoscopic cholecystectomy was completed without incident. Intraoperative angiogram was performed given her increased bilirubin initially. Fortunately the cholangiogram was found to be within normal limits. NARRATIVE OF PROCEDURE After informed consent was obtained the patient was brought to the operative suite and placed on the table in supine fashion. The abdomen was prepped and draped in sterile fashion. Formal time-out was then completed. 0.25% Marcaine with epinephrine was injected just beneath the level of the umbilicus. A 2-cm curved incision was made through the area of analgesia. Dissection was carried down to the deep subcuticular tissues and underlying fascia. The fascia was grasped with two Carli clamps and retracted anteriorly. A 1-cm incision was made between the two Carli clamps. Hemostat was then introduced into the fascial incision and gently spread. U-stitch was placed with 0-Vicryl. 12-mm Rose port was then placed through the fascial opening and into the peritoneal cavity. Pneumoperitoneum was established to a patient pressure of 15 mmHg utilizing carbon dioxide. Next, three additional 5-mm ports were then placed within the epigastric region, right mid-abdomen, right lateral abdominal wall. Each port site was preinjected with 0.25% Marcaine with epinephrine and placed under direct visualization. Abdominal cavity was explored via laparoscope. Findings were as noted above. Next, the fundus of the gallbladder was then grasped and retracted in a cephalad fashion. Additional grasping Pean was then placed upon the infundibular portion of the gallbladder and retracted in a lateral and slightly caudad fashion to provide exposure to the triangle of Calot. As discussed above, there was a component of pericholecystic edema and gallbladder wall thickening consistent with that of acute cholecystitis. Initially dissection was begun high upon the infundibulum of the gallbladder with the use of electrocautery. Medial and lateral aspects of the infundibulum were freed from the underlying liver bed fossa. Dissection was continued until the only remaining structures coming forth from the infundibulum of the gallbladder were that of the cystic duct and the cystic artery. Fluorescence biliary imaging was performed and one could see the cystic duct as it fluoresced quite well within the triangle of Calot. After a critical view of safety was obtained a single Hemoclip was then placed upon the cystic artery adjacent to the infundibulum of the gallbladder. Additionally, two additional Hemoclips were placed proximally upon the cystic artery. A single Hemoclip was placed upon the cystic duct adjacent to the infundibulum of the gallbladder. Ductotomy was made just proximally. Cholangiocatheter was placed within the ductotomy and a cholangiogram was obtained under fluoroscopy as a result of the patient's recent elevation of her liver function tests and bilirubin. Fortunately the cholangiogram was normal. One could see a long cystic duct before entering into the common bile duct. Additionally, one could see a normal taper of the common bile duct with good flow into the duodenum. No filling defects were noted. Proximally, one could see the intrahepatic radicles, left and right hepatic and common hepatic ducts. Again no filling defects were noted. After obtaining a normal cholangiogram the cholangiocatheter was removed. Two Hemoclips were placed proximally upon the cystic duct. Cystic duct and the cystic artery were then divided between the two distal Hemoclips. The gallbladder was dissected off the liver fossa with use of electrocautery. Gallbladder was then placed in a laparoscopic retrieval bag and removed from the infraumbilical port site. Irrigation was performed and all irrigant was suctioned until clear. Gallbladder fossa was carefully inspected and found to be hemostatic in nature. Previously placed Hemoclips were visualized and remained to be intact. Ports were removed under direct visualization. Pneumoperitoneum was released. Previously placed U-stitch at the infraumbilical portal site was then tied, resulting in imbrication of the fascia. All skin incisions were closed in a subcuticular fashion with 4-0 Monocryl. Dermabond was placed overlying the incisions. The patient is in the process of awakening from her anesthetic and will be sent back to the recovery room once deemed in stable condition. TRIPP
[2018-01-10 18:24] VITALS: BP 123/69; PULSE 80; O2SAT 95
== END 2018-01-10 19:45 | disposition home or self-care (01) ==
LOC: EDHOLD 19:03 → ED 19:03 → EDHOLD 22:45 → SRG 22:49
PROVIDERS: ADMIT Surgery; ATTEND Surgery